=== PATIENT | female | born 1935 | race Caucasian/White ===

== ENCOUNTER 2022-04-24 08:22 | Outpatient (REF) | payer MEDICARE, SELFPAY ==
[2022-04-24 11:50] LABS: Hematocrit 40.9 % (37.0-47.0); Hemoglobin 13.2 g/dl (12.0-16.0); Mean Corpuscular HGB Conc 32.3 g/dl (31.0-35.0); Mean Corpuscular Hemoglobin 29.9 pg (27.0-33.0); Mean Corpuscular Volume 92.5 fL (80.0-98.0); Platelet Count 245 X10*3/uL (160-400); Red Blood Count 4.42 X10*6/uL (4.20-5.50); Red Cell Distribution Width 12.6 % (11.0-16.0); White Blood Count 5.2 X10*3/uL (4.8-10.8)
[2022-04-24 12:24] LABS: Alanine Aminotransferase 24 U/L (0-31); Alkaline Phosphatase 88 U/L (39-117); Anion Gap 12 (12-20); Aspartate Amino Transferase 29 U/L (5-31); Bilirubin Total 0.9 mg/dL (0.0-1.0); Blood Urea Nitrogen 16 mg/dL (9-16); Calcium 9.3 mg/dL (8.4-10.2); Carbon Dioxide 29 mmol/L (22-29); Chloride 104 mmol/L (96-108); Cholesterol 160 mg/dL; Estimated Glomerular Filt Rate 60; Glucose Fasting 88 mg/dL (60-99); HDL Cholesterol 48 mg/dL; LDL Cholesterol Calculated 90 mg/dl; Potassium 4.3 mmol/L (3.3-5.1); Sodium 141 mmol/L (135-145); Total Protein 7.2 g/dL (6.5-8.0); Triglycerides 110 mg/dL
== END 2022-04-24 08:23 | disposition home or self-care (01) ==
LOC: HO.WFDLDS 08:22
PROVIDERS: Visit Provider Nurse Practitioner Family
DX: Z00.00 Encounter for general adult medical examination without abnormal findings (principal); Z79.899 Other long term (current) drug therapy
CPT/HCPCS: 36415; 80053; 80061; 82306; 84443; 85027

== ENCOUNTER 2022-05-12 10:59 | Outpatient (REF) | payer MEDICARE, SELFPAY ==
--- NOTE | ~2022-05-12 | MM_ITS ---
EXAMINATION: BONE DENSITOMETRY CLINICAL INDICATION: Osteoporosis. COMPARISON: None (current study represents initial baseline exam). TECHNIQUE: Using a cortical.io DXA System (software version: 13.1) manufactured by [employer], dual-energy x-ray absorptiometry was performed of the lumbar spine and left hip. The images are of good technical quality. Summary results are attached. FINDINGS: AP SPINE L1-L4: BMD 0.994 g/cm2, Z-score 0.4, T-score -1.5, osteopenia. LEFT FEMUR, NECK: BMD 0.712 g/cm2, Z-score 0.1, T-score -2.3, osteopenia. LEFT FEMUR, TOTAL: BMD 0.876 g/cm2, Z-score 1.2, T-score -1.0, normal. IDENTIFIED RISK FACTORS: Menopause, renal. HISTORY OF FRACTURE: None listed. MEDICATIONS: Vitamin D. MM/XR DEXA axial skeleton IMPRESSION: 1. DIAGNOSIS: Osteopenia based on the lowest T-score value of -2.3 in the femoral neck applying World Health Organization criteria. 2. 10-YEAR FRACTURE RISK PREDICTION, FRAX: Major osteoporotic fracture (clinical spine, forearm, hip or shoulder) 18.2%. Hip fracture 6.2%. 3. Treatment Recommendations: NOF guidelines recommend consideration for treatment in postmenopausal women and men age 50 and older presenting with the following: -A hip or vertebral (clinical or morphometric) fracture. -T-score less than or equal to -2.5 at the femoral neck or spine after appropriate evaluation to exclude secondary causes. -Low bone mass at the hip or spine and a 10-year fracture probability by FRAX of greater than or equal to 3% for hip fracture or greater than or equal to 20% for major osteoporotic fracture based on the [place] adapted WHO algorithm. 4. Other Recommendations: All treatment decisions require clinical judgment and consideration of individual patient factors, including patient preferences, comorbidities, previous drug use, risk factors not captured in the FRAX model (e.g. frailty, falls, vitamin D deficiency, increased bone turnover, interval significant decline in bone density) and possible under or overestimation of fracture risk by FRAX. Additional medical evaluation for secondary cause of low bone mineral density may be appropriate. FUTURE SCAN RECOMMENDATION: People with diagnosed cases of osteoporosis or at high risk for fracture should have regular bone mineral density tests. For patients eligible for Medicare, routine testing is allowed once every 2 years. The testing frequency can be increased to one year for patients who have rapidly progressing disease, those who are receiving or discontinuing medical therapy to restore bone mass, or have additional risk factors.
== END 2022-05-12 11:00 | disposition home or self-care (01) ==
LOC: HO.MAMMO 10:59
PROVIDERS: PCP Nurse Practitioner Family; Visit Provider Nurse Practitioner Family
DX: Z13.820 Encounter for screening for osteoporosis (principal); Z78.0 Asymptomatic menopausal state; M81.0 Age-related osteoporosis without current pathological fracture
CPT/HCPCS: 77080

== ENCOUNTER 2022-09-14 09:30 | Outpatient (REF) | payer MEDICARE, SELFPAY ==
[2022-09-14 12:58] LABS: Anion Gap 13 (12-20); Blood Urea Nitrogen 15 mg/dL (9-16); Carbon Dioxide 28 mmol/L (22-29); Chloride 105 mmol/L (96-108); Cholesterol 175 mg/dL; Estimated Glomerular Filt Rate 57; Glucose Random 101 mg/dL (60-115); HDL Cholesterol 45 mg/dL; LDL Cholesterol Calculated 102 mg/dl; Potassium 4.5 mmol/L (3.3-5.1); Sodium 141 mmol/L (135-145); Triglycerides 140 mg/dL
[2022-09-14 13:00] LABS: Vitamin D 25-OH Total 47.6 ng/mL (>30)
== END 2022-09-14 09:31 | disposition home or self-care (01) ==
LOC: HO.WFDLDS 09:30
PROVIDERS: Visit Provider Nurse Practitioner Family
DX: M85.80 Other specified disorders of bone density and structure, unspecified site (principal); I10 Essential (primary) hypertension; E78.5 Hyperlipidemia, unspecified
CPT/HCPCS: 36415; 80048; 80061; 82306

== ENCOUNTER 2022-09-22 09:43 | Outpatient (AMB) | payer MEDICARE, SELFPAY ==
[2022-09-22 09:47] VITALS: BP 126/60; PULSE 96; RESP 12; TEMP 36.8; O2SAT 97; BMI 27.2
--- NOTE | 2022-09-22 09:47 | A.OFFPC_ITS ---
Vital Signs 09/22/22 09:47 Height 5 ft 1 in Weight 144 lb BMI 27.2 BP 126/60 Blood Pressure Location Rt brachial Position Sitting Respiration 12 Pulse 96 Pulse Source Pulse Oximeter Temp 98.3 F Temp Source Temporal Artery Scan Pulse Oximetry (%) 97 Oxygen Delivery Method Room Air Intake Visit Reasons: 3 Month HTN f/u / Lab review Intake Note: Patient would like to discuss possibly getting a mammogram done. Patient states that she has been very light headed lately and is wondering if she needs to see nephrology or a health practice manager. 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 by: Self / Same As Patient Allergies No Known Allergies Allergy (Verified 09/22/22 10:46) Medication List - Last Reconciled 09/22/22 by Kianna Stein CNP aspirin 81 mg PO .every other day atorvastatin 20 mg PO DAILY 30 days lisinopril 20 mg PO DAILY 90 days Tobacco use date assessed: 04/23/22 Fall risk assessment: No Falls in past year Last assessed Fall Risk: 09/22/22 Dental Screening Dental Screen Date: 09/22/22 Did you have a dental visit in the last 12 months?: Yes Did you have a dental problem in the last 6 months where you did not have access to dental care?: No Was dental information given to patient?: Patient has dentist HPI HPI Comments 2 History of Present Illness Details 87-year-old female presents for hypertension follow-up. She notes she takes her medications as prescribed. She reports persistent lightheadedness for the past 1 week. Her symptoms are independent to position changes. No headache, visual disturbances, or ear pain. [facility] Medical History No pertinent past medical history Surgical History H/O removal of cyst Family History Sister Breast cancer Lung cancer Family/Other Breast cancer Family/Other Breast cancer Social History Housing: House Patient Tobacco Use Status: Former Tobacco user Tobacco use type: Cigarette Cigarettes Per Day: 8 e-Cigarette/Vaping Use: Never Used Second Hand Smoke Exposure: No service: No Current occupational status: retired Cognitive needs: No Hearing needs: No Vision needs: No Questionnaire Thrive Questionnaire Date Thrive assessed: 04/23/22 KEVEN-7 AMB Questionnaire KEVEN-7 Date KEVEN - 7 assessed: 04/23/22 Source: Developed by Drs. Chris Nice, Dalia Fermin, Jean Orr and colleagues, with an educational maritza from [email or web address]. Review of Systems Const Details: Const Denies chills, Denies fatigue, Denies fever(s), Denies headache(s) and Denies weakness ENT Denies dizziness and Denies headache(s) Card Denies chest pain, Reports lightheadedness, Denies dyspnea and Denies other (Palpitations) Resp Denies cough, Denies dyspnea, Denies wheezing and Denies other ( shortness of breath) GI Denies abdominal pain, Denies melena, Denies hematochezia, Denies change in bowel habits, Denies dyspepsia and Denies nausea Denies hematuria and Denies dysuria Musc Denies abnormal gait, Denies myalgias, Denies arthralgias, Denies numbness and Denies tingling Skin/Breast Denies rash, Denies unusual bruising and Denies wounds Neuro Denies abnormal gait, Denies dizziness, Denies headache(s), Denies memory loss, Denies numbness, Denies Sensory deficit (Neuro), Denies tingling and Denies weakness Psych Denies anxiety and Denies depression Endo Denies fatigue Aller/Immun Denies wheezing Physical exam (Primary Care) Vital Signs: Last Vital Signs Temp 98.3 F 09/22/22 09:47 Pulse 96 09/22/22 09:47 Resp 12 09/22/22 09:47 BP 126/60 09/22/22 09:47 Pulse Ox 97 09/22/22 09:47 Oxygen Delivery Method Room Air 09/22/22 09:47 BMI result Body Mass Index 27.2 Tobacco/Smoking Status: Tobacco use Status Tobacco use date assessed 04/23/22 09/22/22 10:01 Patient Tobacco Use Status Former Tobacco user 09/22/22 10:01 Tobacco use type Cigarette 09/22/22 10:01 e-Cigarette/Vaping Use Never Used 09/22/22 10:01 Thrive Assessment: Date of Thrive Assessment Date Thrive assessed 04/23/22 09/22/22 10:01 Const Other: General: no acute distress and well developed Nutritional Appearance: well nourished Orientation/consciousness: patient oriented x3 [facility] Head: Yes normocephalic and Yes atraumatic Eyes General: appearance normal, both eyes and all related structures Pupils: Equal, round and reactive pupils present EOM: EOMs intact bilaterally Resp Effort & Inspection: normal respiratory effort Auscultation: clear to auscultation bilaterally Cardio Rate: regular rate Rhythm: regular rhythm Heart sounds: S1 normal heart sound present, S2 normal heart sound present, no gallops, no murmurs and no rubs GI Palpation (GI): No Abdominal aortic bruit present, Soft to palpation, nontender, No hepatosplenomegaly present and No Rebound tenderness present Auscultation: normal bowel sounds General: Yes no CVA tenderness Back/Spine/Pelvis Back: no CVA tenderness Cervical Spine: cervical ROM normal and No Cervical spine tenderness Thoracic/Lumbar Spine: thoraco-lumbar ROM normal, No pain with thoraco-lumbar ROM, No thoracic spinal tenderness and No lumbar spinal tenderness Extrem General: Yes normal to inspection, No edema and No calf tenderness Skin General: warm and dry. Normal skin color. Normal skin turgor Lesions: no lesions Rashes: no rashes Trauma: no lacerations or abrasions Wounds: no wounds Nails: normal Neuro General: patient oriented x3, gait normal and no focal neuro deficit Cranial nerves: Yes Equal, round and reactive pupils present Cognition (Neuro): normal cognition Gait exam (Neuro): Normal gait present Sensory Exam: No Sensory deficit (Neuro) Psych Affect: normal affect Assessment and Plan Assessment & Plan (1) Hypertension: Code(s): I10 - Essential (primary) hypertension Qualifiers: Hypertension type: unspecified Qualified Code(s): I10 - Essential (primary) hypertension Plan: Blood pressure is improved, 126/60, within goal of less than 140/90 Lisinopril as prescribed Low-sodium diet and routine exercise encouraged Follow-up in 3 months or return sooner with symptoms or concerns Verbalized understanding and agreed with treatment plan (2) Hyperlipidemia: Code(s): E78.5 - Hyperlipidemia, unspecified Qualifiers: Hyperlipidemia type: unspecified Qualified Code(s): E78.5 - Hyperlipidemia, unspecified Plan: Recent lab results reviewed with the patient Lipid panels within normal limits but slowly rising Advised to limit foods high in saturated fat and avoid foods high trans for Routine exercise encouraged Will continue to monitor (3) Lightheadedness: Code(s): R42 - Dizziness and giddiness Plan: Reports persistent lightheadedness for the past 1 week May be related to middle ear abnormality although bilat ear exam is normal Declined PT referral for vestibular rehab Advised to monitor symptoms and return with worsening or new symptoms Verbalized understanding and agreed with plan. Coding Level of Care Code Est Pt Level 3 (90175) Diagnoses Hypertension I10 Hypertension type: unspecified Hyperlipidemia E78.5 Hyperlipidemia type: unspecified Lightheadedness R42 Time Spent (min) 25
== END 2022-09-22 10:58 | disposition home or self-care (01) ==
PROVIDERS: Visit Provider Nurse Practitioner Family
DX: I10 Essential (primary) hypertension (principal); E78.5 Hyperlipidemia, unspecified; R42 Dizziness and giddiness
CPT/HCPCS: 99213

== ENCOUNTER 2022-12-22 12:06 | Outpatient (AMB) | payer MEDICARE, SELFPAY ==
--- NOTE | 2022-12-22 12:20 | MHC.PC.OV ---
Vital Signs 12/22/22 12:21 Height 5 ft 1 in Weight 150 lb 2 oz BMI 28.4 BP 128/60 Blood Pressure Location Rt brachial Position Sitting Respiration 12 Pulse 93 Pulse Source Pulse Oximeter Temp 98.9 F Temp Source Oral Pulse Oximetry (%) 98 Oxygen Delivery Method Room Air Intake Visit Reasons: 3 mos HTN Intake Note: Patient is here for a follow up of her blood pressure. Patient reports she needs medication refills and she is interested in getting the flu shot today. Patient was recently diagnosed with macular degeneration and was advised to take preservision capsules. Patient is wondering if this will affect CKD. Patient is also requesting a mammogram referral. 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 She notes she takes her medications as prescribed. She states that she was recently diagnosed with macular degeneration, by [facility], 3 months ago and was advised to take preservision capsule. She is concerned about the effect of the medication on a kidneys. She was advised to follow up with ophthalmology every 3 months. She notes that her last mammogram was over a year ago. She requests an order for a mammogram. [facility] Medical History (Updated 12/22/22 @ 13:06 by Kianna Stein CNP) Macular degeneration of both eyes Surgical History H/O removal of cyst Family History Sister Breast cancer Lung cancer Family/Other Breast cancer Family/Other Breast cancer Social History Housing: House Patient Tobacco Use Status: Former Tobacco user Tobacco use type: Cigarette Cigarettes Per Day: 8 e-Cigarette/Vaping Use: Never Used Second Hand Smoke Exposure: No service: No Current occupational status: retired Cognitive needs: No Hearing needs: No Vision needs: No Questionnaire Thrive Questionnaire Date Thrive assessed: 04/23/22 KEVEN-7 AMB Questionnaire KEVEN-7 Date KEVEN - 7 assessed: 04/23/22 Source: Developed by Drs. Chris Nice, Dalia Fermin, Jean Orr and colleagues, with an educational maritza from [employer]. Review of Systems Const Details: Const Denies chills, Denies fatigue, Denies fever(s), Denies headache(s) and Denies weakness ENT Denies dizziness and Denies headache(s) Card Denies chest pain, Denies lightheadedness, Denies dyspnea and Denies other (Palpitations) Resp Denies cough, Denies dyspnea, Denies wheezing and Denies other ( shortness of breath) GI Denies abdominal pain, Denies melena, Denies hematochezia, Denies change in bowel habits, Denies dyspepsia and Denies nausea Denies hematuria and Denies dysuria Musc Denies abnormal gait, Denies myalgias, Denies arthralgias, Denies numbness and Denies tingling Skin/Breast Denies rash, Denies unusual bruising and Denies wounds Neuro Denies abnormal gait, Denies dizziness, Denies headache(s), Denies memory loss, Denies numbness, Denies Sensory deficit (Neuro), Denies tingling and Denies weakness Psych Denies anxiety, Denies depression, Denies memory loss Endo Denies cold intolerance, Denies fatigue, Denies heat intolerance, Denies polydipsia and Denies polyuria Aller/Immun Denies wheezing Physical exam (Primary Care) Vital Signs: Last Vital Signs Temp 98.9 F 12/22/22 12:21 Pulse 93 12/22/22 12:21 Resp 12 12/22/22 12:21 BP 128/60 12/22/22 12:21 Pulse Ox 98 12/22/22 12:21 Oxygen Delivery Method Room Air 12/22/22 12:21 BMI result Body Mass Index 28.4 Tobacco/Smoking Status: Tobacco use Status Tobacco use date assessed 12/22/22 12/22/22 12:34 Patient Tobacco Use Status Former Tobacco user 12/22/22 12:34 Tobacco use type Cigarette 12/22/22 12:34 e-Cigarette/Vaping Use Never Used 12/22/22 12:34 Thrive Assessment: Date of Thrive Assessment Date Thrive assessed 04/23/22 12/22/22 12:34 Const Other: General: no acute distress and well developed Nutritional Appearance: well nourished Orientation/consciousness: patient oriented x3 [facility] Head: Yes normocephalic and Yes atraumatic Eyes General: appearance normal, both eyes and all related structures Pupils: Equal, round and reactive pupils present EOM: EOMs intact bilaterally Resp Effort & Inspection: normal respiratory effort Auscultation: clear to auscultation bilaterally Cardio Rate: regular rate Rhythm: regular rhythm Heart sounds: S1 normal heart sound present, S2 normal heart sound present, no gallops, no murmurs and no rubs GI Palpation (GI): No Abdominal aortic bruit present, Soft to palpation, nontender, No hepatosplenomegaly present and No Rebound tenderness present Auscultation: normal bowel sounds General: Yes no CVA tenderness Back/Spine/Pelvis Back: no CVA tenderness Cervical Spine: cervical ROM normal and No Cervical spine tenderness Thoracic/Lumbar Spine: thoraco-lumbar ROM normal, No pain with thoraco-lumbar ROM, No thoracic spinal tenderness and No lumbar spinal tenderness Extrem General: Yes normal to inspection, No edema and No calf tenderness Skin General: warm and dry. Normal skin color. Normal skin turgor Lesions: no lesions Rashes: no rashes Trauma: no lacerations or abrasions Wounds: no wounds Nails: normal Neuro General: patient oriented x3, gait normal and no focal neuro deficit Cranial nerves: Yes Equal, round and reactive pupils present Cognition (Neuro): normal cognition Gait exam (Neuro): Normal gait present Sensory Exam: No Sensory deficit (Neuro) Psych Appearance: grossly normal Affect: normal affect Attitude: cooperative Thought process: Normal thought process present Office Procedures Flu Questionnaire Does the patient have a severe egg allergy?: No Does the patient have severe life threatening allergies?: No Does the patient have a fever or illness today?: No Has the patient ever had Guillain-Clifford Syndrome?: No Has the patient ever had any past reaction to a flu shot?: No Immunizations flu vacc [id number] 6mos up(PF) 60 mcg(15 mcgx4)/0.5 mL IM syringe Performing Provider: Kianna Stein CNP Performing Location: [facility] Administered by: Julissa Casper CMA on 12/22/22 13:09 Dose Route Admin Location Dispensed Lot Number Expiration Date NDC Stock Wetter 0.5 mL IM Left Deltoid 0.5 mL [id number] 08/29/23 86543-713-41 [id number] VIS Given Date VIS Provided VIS Publication Date 12/22/22 Single Vaccine 20 Eligibility Eligibility Date Funding Source Not [facility] Eligible 12/22/22 Private Assessment and Plan Assessment & Plan (1) Hypertension: Code(s): I10 - Essential (primary) hypertension Qualifiers: Hypertension type: unspecified Qualified Code(s): I10 - Essential (primary) hypertension Plan: Blood pressures control, 128/60, within goal of less than 140/90 Continue with current treatment regimen Low-sodium diet encouraged Follow-up in 4 months for a complete physical exam and hypertension. Will recheck routine labs. Advised to fast for 10-12 hours and get blood work done before her physical exam Return sooner with symptoms or concerns Verbalized understanding and agreed with treatment plan. She is informed that according to the USPSTF, the current evidence is insufficient to assess the balance of benefits and harms of screening mammography in women aged 75 years or older. She verbalized understanding and elects discontinue mammogram test at this time. Flu vaccine was administered by the nurse today. (2) Macular degeneration: Code(s): H35.30 - Unspecified macular degeneration Plan: She states that she was recently diagnosed with macular degeneration, by [facility], 3 months ago and was advised to take preservision capsule. She is concerned about the effect of the medication on a kidneys. She was advised to follow up with ophthalmology every 3 months. 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 Orders: Orders TSH reflex Free T4 Today Z00.00 - Encounter for general adult medical examination without abnormal findings Influenza [id number] Immunization Today Z23 - Encounter for immunization Comprehensive [place]. Panel Fast Today Z00.00 - Encounter for general adult medical examination without abnormal findings Complete Blood Count Auto Diff Today Z00.00 - Encounter for general adult medical examination without abnormal findings Lipid Panel Today Z00.00 - Encounter for general adult medical examination without abnormal findings UA CC w/rflx Micro + Cult Today Z00.00 - Encounter for general adult medical examination without abnormal findings Coding Level of Care Code Est Pt Level 3 (59392) Diagnoses Hypertension, unspecified type I10 Hypertension type: unspecified Macular degeneration H35.30
[2022-12-22 12:21] VITALS: BP 128/60; PULSE 93; RESP 12; TEMP 37.2; O2SAT 98; BMI 28.4
== END 2022-12-22 13:07 | disposition home or self-care (01) ==
PROVIDERS: PCP Nurse Practitioner Family; Visit Provider Nurse Practitioner Family
DX: I10 Essential (primary) hypertension (principal); H35.30 Unspecified macular degeneration; Z23 Encounter for immunization
CPT/HCPCS: 90471; 90686; 99213

== ENCOUNTER 2023-04-14 08:41 | Outpatient (REF) | payer MEDICARE, SELFPAY ==
[2023-04-14 11:24] LABS: MANUAL DIFF FLAG NO
[2023-04-14 11:29] LABS: Appearance Urine Cloudy; Color Urine Yellow; Glucose Urine UA Negative (Negative); Leukocyte Esterase Urine Small (1+) (Negative); Nitrite Urine Negative (Negative); UMIC TRIGGER UACC YES; Urine Blood Negative (Negative); Urine Ketones Negative (Negative); Urine Protein Negative (Neg-Trace)
[2023-04-14 11:42] LABS: Bacteria Urine None Seen (None Seen); RBC Urine 0-2 /HPF (0-2); UACC Culture Trigger YES; WBC Urine 21-50 /HPF (0-5)
[2023-04-14 11:50] LABS: Basophils Percent Auto 0.8 % (0-2); Eosinophils Absolute Auto 0.1 X10*3/uL (0.0-0.4); Eosinophils Percent Auto 2.8 % (0-4); Hematocrit 38.4 % (37.0-47.0); Hemoglobin 12.5 g/dl (12.0-16.0); Imm Gran Abs Auto 0.01 X10*3/uL (0.00-0.03); Imm Gran Pct Auto 0.2 % (0.0-0.4); Lymphocytes Absolute Auto 1.3 X10*3/uL (1.2-4.9); Lymphocytes Percent Auto 25.3 % (20-40); Mean Corpuscular HGB Conc 32.6 g/dl (31.0-35.0); Mean Corpuscular Hemoglobin 30.5 pg (27.0-33.0); Mean Corpuscular Volume 93.7 fL (80.0-98.0); Mean Platelet Volume 10.1 fL (9.4-12.3); Monocytes Absolute Auto 0.4 X10*3/uL (0.1-1.2); Neutrophils Absolute Auto 3.1 x10*3/uL (2.0-8.3); Neutrophils Percent Auto 62.9 % (45-73); Platelet Count 224 X10*3/uL (160-400); Red Cell Distribution Width 12.3 % (11.0-16.0)
[2023-04-14 12:48] LABS: Alanine Aminotransferase 15 U/L (0-31); Albumin Level 3.8 g/dL (3.5-5.0); Alkaline Phosphatase 91 U/L (39-117); Anion Gap 11 (12-20); Aspartate Amino Transferase 22 U/L (5-31); Bilirubin Total 0.5 mg/dL (0.0-1.0); Blood Urea Nitrogen 15 mg/dL (9-16); Carbon Dioxide 28 mmol/L (22-29); Chloride 107 mmol/L (96-108); Cholesterol 141 mg/dL (<200); Estimated Glomerular Filt Rate 57; Glucose Fasting 94 mg/dL (60-99); HDL Cholesterol 41 mg/dL (>40); LDL Cholesterol Calculated 73 mg/dL (<100); Potassium 3.9 mmol/L (3.3-5.1); Sodium 142 mmol/L (135-145); TSH reflex Free T4 1.57 uIU/mL (0.32-4.0); Total Protein 7.2 g/dL (6.5-8.0); Triglycerides 135 mg/dL (<150)
== END 2023-04-14 08:42 | disposition home or self-care (01) ==
LOC: HO.WFDLDS 08:41
PROVIDERS: Visit Provider Nurse Practitioner Family
DX: Z00.00 Encounter for general adult medical examination without abnormal findings (principal); Z13.220 Encounter for screening for lipoid disorders; Z13.29 Encounter for screening for other suspected endocrine disorder
CPT/HCPCS: 36415; 80053; 80061; 81001; 84443; 85025; 87086

== ENCOUNTER 2023-04-20 09:44 | Outpatient (AMB) | payer MEDICARE, SELFPAY ==
[2023-04-20 09:53] VITALS: BP 122/70; PULSE 90; RESP 13; TEMP 36.5; O2SAT 96; BMI 27.1
--- NOTE | 2023-04-20 09:53 | A.OFFPC_ITS ---
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 Accompanied by: Self / Same As Patient Allergies grass pollen Allergy (Severe, Verified 04/20/23 10:00) Itchy Eyes tree and shrub pollen Allergy (Intermediate, Verified 04/20/23 10:00) Itchy Eyes Tobacco use date assessed: 04/20/23 Fall risk assessment: No Falls in past year Last assessed Fall Risk: 04/20/23 Dental Screening Dental Screen Date: 04/20/23 Did you have a dental visit in the last 12 months?: Yes Did you have a dental problem in the last 6 months where you did not have access to dental care?: No Was dental information given to patient?: Patient has dentist HPI HPI Comments History of Present Illness Details 87-year-old female presents for hyperten aviva follow-up She admits to taking her medications as prescribed without adverse reactions She offers no complaints and denies acute symptoms at this time [facility] Medical History Macular degeneration of both eyes Surgical History H/O removal of cyst Family History Sister Breast cancer Lung cancer Family/Other Breast cancer Family/Other Breast cancer Daughter Bipolar 1 disorder Family/Other Schizophrenia Other Mental health disorder Social History Housing: House Patient Tobacco Use Status: Former Tobacco user Tobacco use type: Cigarette Cigarettes Per Day: 8 e-Cigarette/Vaping Use: Never Used Second Hand Smoke Exposure: No service: No Current occupational status: retired Cognitive needs: No Hearing needs: No Vision needs: No Questionnaire Thrive Questionnaire Date Thrive assessed: 04/23/22 KEVEN-7 AMB Questionnaire KEVEN-7 Date KEVEN - 7 assessed: 04/23/22 Source: Developed by Drs. Chris Nice, Dalia Fermin, Jean Orr and colleagues, with an educational maritza from [employer]. Review of Systems Const Details: Const Denies chills, Denies fatigue, Denies fever(s), Denies headache(s) and Denies weakness ENT Denies dizziness and Denies headache(s) Card Denies chest pain, Denies lightheadedness, Denies dyspnea and Denies other (Palpitations) Resp Denies cough, Denies dyspnea, Denies wheezing and Denies other ( shortness of breath) GI Denies abdominal pain, Denies melena, Denies hematochezia, Denies change in bowel habits, Denies dyspepsia and Denies nausea Denies hematuria and Denies dysuria Musc Denies abnormal gait, Denies myalgias, Denies arthralgias, Denies numbness and Denies tingling Skin/Breast Denies rash, Denies unusual bruising and Denies wounds Neuro Denies abnormal gait, Denies dizziness, Denies headache(s), Denies memory loss, Denies numbness, Denies Sensory deficit (Neuro), Denies tingling and Denies weakness Psych Denies anxiety, Denies depression, Denies memory loss Endo Denies cold intolerance, Denies fatigue, Denies heat intolerance, Denies polydipsia and Denies polyuria Aller/Immun Denies wheezing Physical exam (Primary Care) Vital Signs: Last Vital Signs Temp 97.7 F 04/20/23 09:53 Pulse 90 04/20/23 09:53 Resp 13 04/20/23 09:53 BP 122/70 04/20/23 09:53 Pulse Ox 96 04/20/23 09:53 Oxygen Delivery Method Room Air 04/20/23 09:53 BMI result Body Mass Index 27.1 Tobacco/Smoking Status: Tobacco use Status Tobacco use date assessed 04/20/23 04/20/23 10:05 Patient Tobacco Use Status Former Tobacco user 04/20/23 10:05 Tobacco use type Cigarette 04/20/23 10:05 e-Cigarette/Vaping Use Never Used 04/20/23 10:05 Thrive Assessment: Date of Thrive Assessment Date Thrive assessed 04/23/22 04/20/23 10:05 Const Other: General: no acute distress and well developed Nutritional Appearance: well nourished Orientation/consciousness: patient oriented x3 HENMT Head: Yes normocephalic and Yes atraumatic Eyes General: appearance normal, both eyes and all related structures Pupils: Equal, round and reactive pupils present EOM: EOMs intact bilaterally Resp Effort & Inspection: normal respiratory effort Auscultation: clear to auscultation bilaterally Cardio Rate: regular rate Rhythm: regular rhythm Heart sounds: S1 normal heart sound present, S2 normal heart sound present, no gallops, no murmurs and no rubs GI Palpation (GI): No Abdominal aortic bruit present, Soft to palpation, nontender, No hepatosplenomegaly present and No Rebound tenderness present Auscultation: normal bowel sounds General: Yes no CVA tenderness Back/Spine/Pelvis Back: no CVA tenderness Cervical Spine: cervical ROM normal and No Cervical spine tenderness Thoracic/Lumbar Spine: thoraco-lumbar ROM normal, No pain with thoraco-lumbar ROM, No thoracic spinal tenderness and No lumbar spinal tenderness Extrem General: Yes normal to inspection, No edema and No calf tenderness Skin General: warm and dry. Normal skin color. Normal skin turgor Neuro General: patient oriented x3, gait normal and no focal neuro deficit Cranial nerves: Yes Equal, round and reactive pupils present Cognition (Neuro): normal cognition Gait exam (Neuro): Normal gait present Sensory Exam: No Sensory deficit (Neuro) Psych Appearance: grossly normal Affect: normal affect Attitude: cooperative Thought process: Normal thought process present Assessment and Plan Assessment & Plan (1) Hypertension: Code(s): I10 - Essential (primary) hypertension Qualifiers: Hypertension type: unspecified Qualified Code(s): I10 - Essential (primary) hypertension Plan: Blood pressure is 122/70, within goal of less than 140/90 Continue current treatment regimen Low-sodium diet and routine exercise encouraged Follow-up in 1 month for an extended physical exam Return sooner with symptoms or concerns Verbalized understanding and agreed with treatment plan Recent lab results reviewed with the patient; unremarkable findings Coding Level of Care Code Est Pt Level 3 (67159) Diagnoses Hypertension, unspecified type I10 Hypertension type: unspecified
== END 2023-04-20 10:17 | disposition home or self-care (01) ==
PROVIDERS: PCP Nurse Practitioner Family; Visit Provider Nurse Practitioner Family
DX: I10 Essential (primary) hypertension (principal)
CPT/HCPCS: 99213

== ENCOUNTER 2023-06-18 16:13 | Outpatient (AMB) | payer MEDICARE, SELFPAY ==
[2023-06-18 16:14] VITALS: BP 128/70; PULSE 107; RESP 13; TEMP 36.6; O2SAT 99; BMI 27.6
--- NOTE | 2023-06-18 16:14 | A.OFFPC_ITS ---
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 Required: No Accompanied by: Self / Same As Patient Allergies grass pollen Allergy (Severe, Verified 06/18/23 16:42) Itchy Eyes tree and shrub pollen Allergy (Intermediate, Verified 06/18/23 16:42) Itchy Eyes Medication List - Last Reconciled 06/18/23 by Kianna Stein CNP aspirin 81 mg PO .every other day atorvastatin 20 mg PO DAILY 30 days lisinopril 20 mg PO DAILY 90 days vitamins A,C,V-kxvo-vknxpb 4,296 mcg-226 mg-90 mg (PreserVision AREDS) 1 cap PO DAILY Tobacco use date assessed: 04/20/23 Fall risk assessment: 1 Fall in past year Last assessed Fall Risk: 06/18/23 Dental Screening Dental Screen Date: 06/18/23 Did you have a dental visit in the last 12 months?: Yes Did you have a dental problem in the last 6 months where you did not have access to dental care?: No HPI HPI Comments History of Present Illness Details 88-year-old female presents for an exten ded physical exam She has history of hyperlipidemia, hypertension, osteopenia, and macular degeneration of both eyes She admits to taking her medications as prescribed without adverse reactions She offers no complaints and denies acute symptoms at this time Last dexa scan was in 04/2022: ostopenia. She states that she takes OTC viamin D3 Her last colonoscopy was 8 years ago, polyps removed, no known h/o colon cancer. No family h/o colon cancer Last mammogram was in 2021: normal. She requests a mammogram She states that she is up-to-date on the flu vaccine She notes that her last eye exam was with [facility] on 05/17/2023 [facility] Medical History Macular degeneration of both eyes Surgical History H/O removal of cyst Family History Sister Breast cancer Lung cancer Family/Other Breast cancer Family/Other Breast cancer Daughter Bipolar 1 disorder Family/Other Schizophrenia Other Mental health disorder Social History Housing: House Patient Tobacco Use Status: Former Tobacco user Tobacco use type: Cigarette Cigarettes Per Day: 8 e-Cigarette/Vaping Use: Never Used Second Hand Smoke Exposure: No service: No Current occupational status: retired Cognitive needs: No Hearing needs: No Vision needs: No Questionnaire PHQ-9 Over the last 2 weeks, how often have you been bothered by any of the following problems? 1. Little interest or pleasure in doing things: not at all 2. Feeling down, depressed, or hopeless: not at all 3. Trouble falling or staying asleep, or sleeping too much: nearly every day (Staying asleep) 4. Feeling tired or having little energy: not at all 5. Poor appetite or overeating: several days 6. Feeling bad about yourself - or that you are a failure or have let yourself or your family down: not at all 7. Trouble concentrating on things, such as reading the newspaper or watching television: not at all 8. Moving or speaking so slowly that other people could have noticed. Or the opposite - being so fidgety or restless that you have been moving around a lot more than usual: not at all 9. Thoughts that you would be better off or of hurting yourself in some way: not at all Total score: 4 Depression Screening Interpretation: Negative Depression Screening Done: Yes [id number] - PHQ-9 Billing: Yes Source: Developed by Drs. Chris Nice, Dalia Fermin, Jean Orr and colleagues, with an educational maritza from [employer]. Thrive Questionnaire Date Thrive assessed: 06/18/23 I am a: Patient What is your living situation today?: I have a steady place to live Within the past 12 months, did the food you bought not last and you didn't have the money to get more?: Never true Within the past 12 months, did you worry whether your food would run out before you got money to buy more?: Never true Do you have trouble paying for medicines?: No Do you have trouble getting transportation to medical appointments?: No Do you have trouble paying your heating and electricity bill?: No Do you have trouble taking care of your child, family member or friend?: No Do you have trouble with day-to-day activities such as bathing, preparing meals, shopping, managing finances, etc.?: No Are you currently unemployed and looking for a job?: No Are you interested in more education?: No Please select the resources that you would like help with: None Currently or been in a relationship where the following occur: no concerns reported THRIVE Score: 0 AUDIT C Alcohol Use Questionnaire (AUDIT-C) 1. How often do you have a drink containing alcohol?: Never 3. How often do you have six or more drinks on one occasion?: Never Total Score: 0 KEVEN-7 AMB Questionnaire KEVEN-7 Date KEVEN - 7 assessed: 06/18/23 Feeling nervous, anxious, or on edge: 0 = Not at all Not being able to stop or control worryin = Several days Worrying too much about different things: 1 = Several days Trouble relaxin = Not at all Being so restless that it is hard to sit still: 0 = Not at all Becoming easily annoyed or irritable: 0 = Not at all Feeling afraid as if something awful might happen: 0 = Not at all Total KEVEN-7 score (0-4 normal; 5-9 mild; 10-14 moderate; 15-21 severe): 2 Source: Developed by Drs. Chris Nice, Dalia Fermin, Jean Orr and colleagues, with an educational maritza from [employer]. Review of Systems Const Details: Denies chills, Denies fatigue, Denies fever(s), Denies headache(s) and Denies weakness HEENT Denies change in vision, Denies dizziness, Denies headache(s), Denies hearing loss, Denies nasal congestion, Denies sinus pain, Denies sinus pressure and Denies sore throat Card Denies chest pain, Denies lightheadedness, Denies dyspnea and Denies other (palpitations) Resp Denies cough, Denies dyspnea and Denies wheezing GI Denies abdominal pain, Denies melena, Denies hematochezia, Denies change in bowel habits, Denies dyspepsia and Denies nausea Denies hematuria and Denies dysuria Musc Denies abnormal gait, Denies myalgias, Denies arthralgias, Denies numbness and Denies tingling Skin/Breast Denies rash, Denies unusual bruising and Denies wounds Neuro Denies abnormal gait, Denies dizziness, Denies headache(s), Denies memory loss, Denies numbness, Denies Sensory deficit (Neuro), Denies tingling and Denies weakness Psych Denies anxiety, Denies depression and Denies memory loss Endo Denies cold intolerance, Denies fatigue, Denies heat intolerance, Denies polydipsia and Denies polyuria Tonio/Lymph Denies easy bleeding and Denies easy bruising Aller/Immun Denies wheezing Physical exam (Primary Care) Vital Signs: Last Vital Signs Temp 97.9 F 06/18/23 16:14 Pulse 107 H 06/18/23 16:14 Resp 13 06/18/23 16:14 BP 128/70 06/18/23 16:14 Pulse Ox 99 06/18/23 16:14 Oxygen Delivery Method Room Air 06/18/23 16:14 BMI result Body Mass Index 27.6 Tobacco/Smoking Status: Tobacco use Status Tobacco use date assessed 04/20/23 06/18/23 16:31 Patient Tobacco Use Status Former Tobacco user 06/18/23 16:31 Tobacco use type Cigarette 06/18/23 16:31 e-Cigarette/Vaping Use Never Used 06/18/23 16:31 PHQ-9: PHQ-9 Score PHQ-9: Total score 4 06/18/23 16:31 Depression Screening Interpretation: Negative Thrive Assessment: Date of Thrive Assessment Date Thrive assessed 06/18/23 06/18/23 16:31 Currently or been in a relationship where the following occur: no concerns reported Const Other: General: no acute distress, well developed, alert and awake Nutritional Appearance: well nourished Orientation/consciousness: patient oriented x3 HENMT Head: Yes normocephalic and Yes atraumatic Ears: hearing grossly normal bilaterally and TM's normal bilaterally General nose exam: Normal external nose present and Normal nares present Mouth: Normal oral and palatal mucosa present and moist mucous membranes Teeth and gingiva: dentition normal Throat: Yes oropharynx normal Eyes Pupils: Equal, round and reactive pupils present and Pupil accommodation reflex normal EOM: EOMs intact bilaterally Neck Neck: Yes normal visual inspection, Yes no lymphadenopathy and Yes trachea midline Thyroid: Thyroid normal Carotids: no bruits Lymphatic: no lymphadenopathy noted Chest Chest palpation & inspection: normal inspection of the chest Resp Effort & Inspection: normal respiratory effort Auscultation: clear to auscultation bilaterally Cardio Rate: regular rate Rhythm: regular rhythm Heart sounds: S1 normal heart sound present, S2 normal heart sound present, no gallops, no murmurs and no rubs Bruits: no abdominal aortic bruits and no carotid bruits GI Palpation (GI): No Abdominal aortic bruit present, Soft to palpation, nontender, No hepatosplenomegaly present and No Rebound tenderness present Auscultation: normal bowel sounds General: Yes no CVA tenderness Back/Spine/Pelvis Back: no CVA tenderness Cervical Spine: cervical ROM normal and No Cervical spine tenderness Thoracic/Lumbar Spine: thoraco-lumbar ROM normal, No pain with thoraco-lumbar ROM, No thoracic spinal tenderness and No lumbar spinal tenderness Skin General: warm and dry. Normal skin color. Normal skin turgor Lesions: no lesions Rashes: no rashes Trauma: no lacerations or abrasions Wounds: no wounds Nails: normal Neuro General: patient oriented x3, gait normal and CN's II-XI intact bilaterally Cranial nerves: Yes Equal, round and reactive pupils present Cognition (Neuro): normal cognition Gait exam (Neuro): Normal gait present Motor exam (neuro): 5/5 motor strength present throughout Sensory Exam: No Sensory deficit (Neuro) Deep tendon reflexes (DTR's): Right patellar reflex intensity grade: 2+ and Left patellar reflex intensity grade: 2+ Extrem General: Yes normal to inspection, No edema and No calf tenderness Psych Appearance: grossly normal Affect: normal affect Attitude: cooperative Thought process: Normal thought process present Assessment and Plan Assessment & Plan (1) Physical exam, annual: Code(s): Z00.00 - Encounter for general adult medical examination without abnormal findings Plan: No significant physical restrictions or limitations noted Continue current treatment regimen Advised to request ophthalmology record for her PCP Advised to get fasting blood work done before next visit Follow-up in 4 months for hypertension and hyperlipidemia Return sooner with symptoms or concerns Verbalized understanding and agreed with treatment plan (2) Breast cancer screening by mammogram: Code(s): Z12.31 - Encounter for screening mammogram for malignant neoplasm of breast Plan: Last mammogram was in 2021: normal. She requests a mammogram Mammogram ordered Orders: Orders MM screening mammo BI Today Z12.31 - Encounter for screening mammogram for malignant neoplasm of breast Lipid Panel Today E78.5 - Hyperlipidemia, unspecified Coding Level of Care Code Est Pt Prev Care >65y(68021) Diagnoses Physical exam, annual Z00.00 Breast cancer screening by mammogram Z12.
== END 2023-06-18 17:07 | disposition home or self-care (01) ==
PROVIDERS: PCP Nurse Practitioner Family; Visit Provider Nurse Practitioner Family
DX: Z00.00 Encounter for general adult medical examination without abnormal findings (principal); Z12.31 Encounter for screening mammogram for malignant neoplasm of breast
CPT/HCPCS: 99397

== ENCOUNTER 2023-07-28 14:26 | Outpatient (REF) | payer MEDICARE, SELFPAY | END 2023-07-28 14:27 | disposition home or self-care (01) | LOC: HO.MAMMO 14:26 | PROVIDERS: PCP Nurse Practitioner Family; Visit Provider Nurse Practitioner Family | DX: Z13.89 Encounter for screening for other disorder (principal) ==

== ENCOUNTER 2023-08-26 14:01 | Outpatient (REF) | payer MEDICARE, SELFPAY ==
--- NOTE | ~2023-08-26 | MM_ITS ---
EXAMINATION: MM DIAGNOSTIC DIGITAL BREAST TOMOSYNTHESIS, BILATERAL US BREAST LIMITED, BILATERAL MAMMOGRAPHY: CLINICAL INFORMATION: Chronic bilateral nipple discharge. History of nipple retraction. Left benign excisional biopsy 1975. COMPARISON: Mammography: 01/08/2020. ([place]) TECHNIQUE: Digital breast tomosynthesis is performed in both the craniocaudal and mediolateral oblique views along with computer-aided detection (CAD). Synthesized 2D images are generated from the tomosynthesis. In addition, 2-D spot magnification views of the bilateral retroareolar regions were obtained in the bilateral CC and bilateral MLO views. FINDINGS: The breasts are heterogeneously dense, which may obscure small masses (ACR BI-RADS breast composition Category c). There are extensive bilateral secretory and benign type dystrophic calcifications in both breasts. There is a stable oval nodule, likely lymph node, and the upper far outer right breast posterior one third. There is bilateral nipple inversion, chronic. Mild architectural distortion of the left breast above the nipple is noted from remote excisional biopsy. There are no suspicious masses, suspicious grouped calcifications, or areas of architectural distortion in either breast. The parenchymal pattern is stable from prior exam. There is no skin or axillary abnormality. No mammographic abnormality evident to explain bilateral nipple discharge. ULTRASOUND: CLINICAL INFORMATION: As above. COMPARISON: None TECHNIQUE: Targeted sonographic evaluation was performed using a high frequency linear transducer. Selected archived documentation. FINDINGS: RIGHT BREAST: There are 2 tiny simple cysts present measuring 3 and 5 mm directly behind the nipple. No duct ectasia, abnormal mass, abnormal shadowing, architectural distortion, or additional cystic abnormality. LEFT BREAST: -There is a 5 mm retroareolar calcification, dystrophic. There is a 4 mm simple cyst in the retroareolar region. No duct ectasia, abnormal mass, abnormal shadowing, architectural distortion, or additional cystic abnormality. MM/MM tomosynthesis diagnostic BI IMPRESSION: There are no findings suspicious for malignancy in either breast. No mammographic or sonographic abnormality seen to explain nipple discharge bilaterally. Recommend clinical management. Otherwise, recommend the patient resume routine annual screening mammography in one year. OVERALL ASSESSMENT: Mammography: BI-RADS 2 - Benign Findings Ultrasound: BI-RADS 2 - Benign Findings RECOMMENDATION: 1 year F/U This patient's information was entered into a reminder system with a target due date for their next mammogram.
== END 2023-08-26 14:02 | disposition home or self-care (01) ==
LOC: HO.MAMMO 14:01
PROVIDERS: PCP Nurse Practitioner Family; Visit Provider Nurse Practitioner Family
DX: N64.52 Nipple discharge (principal); Z87.898 Personal history of other specified conditions
CPT/HCPCS: 76642; 77062; 77066

== ENCOUNTER → 2023-08-26 14:30 | Outpatient (BNV) | payer MEDICARE, SELFPAY | PROVIDERS: PCP Nurse Practitioner Family; Visit Provider Radiology Diagnostic Radiology | DX: R92.1 Mammographic calcification found on diagnostic imaging of breast (principal); N60.01 Solitary cyst of right breast; N60.02 Solitary cyst of left breast | CPT/HCPCS: 76642; 77066; G0279 ==

== ENCOUNTER 2023-10-15 08:44 | Outpatient (REF) | payer MEDICARE, SELFPAY ==
[2023-10-15 11:34] LABS: Cholesterol 149 mg/dL (<200); HDL Cholesterol 38 mg/dL (>40); LDL Cholesterol Calculated 87 mg/dL (<100); Triglycerides 120 mg/dL (<150)
== END 2023-10-15 08:45 | disposition home or self-care (01) ==
LOC: HO.WFDLDS 08:44
PROVIDERS: Visit Provider Nurse Practitioner Family
DX: E78.5 Hyperlipidemia, unspecified (principal)
CPT/HCPCS: 36415; 80061

== ENCOUNTER 2023-10-19 10:54 | Outpatient (AMB) | payer MEDICARE, SELFPAY ==
--- NOTE | 2023-10-19 10:57 | A.OFFPC_ITS ---
Vital Signs 10/19/23 11:05 10/19/23 11:39 Height 5 ft 1 in Weight 143 lb BMI 27.0 BP 132/58 L 134/64 Blood Pressure Location Rt brachial Lt brachial Position Sitting Sitting Respiration 16 Pulse 78 Pulse Source Pulse Oximeter Temp 97.7 F Temp Source Oral Pulse Oximetry (%) 98 Oxygen Delivery Method Room Air Intake Visit Reasons: 4 mos HTN, HLD Intake Note: patient here for 4 month follow up on HTN and HLD. Breaker Layer Required: No Is last menstrual period known: No Post menopausal: No Patient : No Allergies grass pollen Allergy (Severe, Verified 10/19/23 11:28) Itchy Eyes tree and shrub pollen Allergy (Intermediate, Verified 10/19/23 11:28) Itchy Eyes Medication List - Last Reconciled 10/19/23 by Kianna Stein CNP aspirin 81 mg PO .every other day atorvastatin 20 mg PO DAILY 30 days cholecalciferol (vitamin D3) 125 mcg PO DAILY lisinopril 20 mg PO DAILY 90 days Tobacco use date assessed: 10/19/23 Fall risk assessment: No Falls in past year Last assessed Fall Risk: 10/19/23 Dental Screening Dental Screen Date: 10/19/23 Did you have a dental visit in the last 12 months?: Yes Did you have a dental problem in the last 6 months where you did not have access to dental care?: No Was dental information given to patient?: Patient has dentist HPI HPI Comments History of Present Illness Details 88-year-old female presents for hyperten aviva and hyperlipidemia follow- up She admits to taking her medications as prescribed without adverse reactions She offers no complaints and denies acute symptoms at this time [facility] Medical History Macular degeneration of both eyes Surgical History H/O removal of cyst Family History Sister Breast cancer Lung cancer Family/Other Breast cancer Family/Other Breast cancer Daughter Bipolar 1 disorder Family/Other Schizophrenia Other Mental health disorder Social History Housing: House Patient Tobacco Use Status: Former Tobacco user Tobacco use type: Cigarette Cigarettes Per Day: 8 e-Cigarette/Vaping Use: Never Used Second Hand Smoke Exposure: No service: No Current occupational status: retired Current occupational exposures/hazards: No Cognitive needs: No Hearing needs: No Vision needs: No Questionnaire PHQ-9 Over the last 2 weeks, how often have you been bothered by any of the following problems? 1. Little interest or pleasure in doing things: not at all 2. Feeling down, depressed, or hopeless: several days 3. Trouble falling or staying asleep, or sleeping too much: not at all 4. Feeling tired or having little energy: not at all 5. Poor appetite or overeating: not at all 6. Feeling bad about yourself - or that you are a failure or have let yourself or your family down: not at all 7. Trouble concentrating on things, such as reading the newspaper or watching television: several days 8. Moving or speaking so slowly that other people could have noticed. Or the opposite - being so fidgety or restless that you have been moving around a lot more than usual: not at all 9. Thoughts that you would be better off or of hurting yourself in some way: not at all Total score: 2 01188 - PHQ-9 Billing: Yes Source: Developed by Drs. Chris Nice, Jean Gastelum and colleagues, with an educational maritza from [employer]. Thrive Questionnaire Date Thrive assessed: 06/18/23 KEVEN-7 AMB Questionnaire KEVEN-7 Date KEVEN - 7 assessed: 06/18/23 Source: Developed by Dalia Todd Kurt Kroenke and colleagues, with an educational maritza from [employer]. Review of Systems Const Details: Const Denies chills, Denies fatigue, Denies fever(s), Denies headache(s) and Denies weakness ENT Denies dizziness and Denies headache(s) Card Denies chest pain, Denies lightheadedness, Denies dyspnea and Denies other (Palpitations) Resp Denies cough, Denies dyspnea, Denies wheezing and Denies other ( shortness of breath) GI Denies abdominal pain, Denies melena, Denies hematochezia, Denies change in bowel habits, Denies dyspepsia and Denies nausea Denies hematuria and Denies dysuria Musc Denies abnormal gait, Denies myalgias, Denies arthralgias, Denies numbness and Denies tingling Skin/Breast Denies rash, Denies unusual bruising and Denies wounds Neuro Denies abnormal gait, Denies dizziness, Denies headache(s), Denies memory loss, Denies numbness, Denies Sensory deficit (Neuro), Denies tingling and Denies weakness Psych Denies anxiety, Denies depression, Denies memory loss Endo Denies cold intolerance, Denies fatigue, Denies heat intolerance, Denies polydipsia and Denies polyuria Aller/Immun Denies wheezing Physical exam (Primary Care) Vital Signs: Last Vital Signs Temp 97.7 F 10/19/23 11:05 Pulse 78 10/19/23 11:05 Resp 16 10/19/23 11:05 BP 132/58 L 10/19/23 11:05 Pulse Ox 98 10/19/23 11:05 Oxygen Delivery Method Room Air 10/19/23 11:05 BMI result Body Mass Index 27.0 Tobacco/Smoking Status: Tobacco use Status Tobacco use date assessed 10/19/23 10/19/23 11:09 Patient Tobacco Use Status Former Tobacco user 10/19/23 11:09 Tobacco use type Cigarette 10/19/23 11:09 e-Cigarette/Vaping Use Never Used 10/19/23 11:09 PHQ-9: PHQ-9 Score PHQ-9: Total score 2 10/19/23 11:11 Thrive Assessment: Date of Thrive Assessment Date Thrive assessed 06/18/23 10/19/23 11:09 Const Other: General: no acute distress and well developed Nutritional Appearance: well nourished Orientation/consciousness: patient oriented x3 HENMT Head: Yes normocephalic and Yes atraumatic Eyes General: appearance normal, both eyes and all related structures Pupils: Equal, round and reactive pupils present EOM: EOMs intact bilaterally Resp Effort & Inspection: normal respiratory effort Auscultation: clear to auscultation bilaterally Cardio Rate: regular rate Rhythm: regular rhythm Heart sounds: S1 normal heart sound present, S2 normal heart sound present, no g allops, no murmurs and no rubs GI Palpation (GI): No Abdominal aortic bruit present, Soft to palpation, nontender, No hepatosplenomegaly present and No Rebound tenderness present Auscultation: normal bowel sounds General: Yes no CVA tenderness Back/Spine/Pelvis Back: no CVA tenderness Cervical Spine: cervical ROM normal and No Cervical spine tenderness Thoracic/Lumbar Spine: thoraco-lumbar ROM normal, No pain with thoraco-lumbar ROM, No thoracic spinal tenderness and No lumbar spinal tenderness Extrem General: Yes normal to inspection, No edema and No calf tenderness Skin General: warm and dry. Normal skin color. Normal skin turgor Neuro General: patient oriented x3, gait normal and no focal neuro deficit Cranial nerves: Yes Equal, round and reactive pupils present Cognition (Neuro): normal cognition Gait exam (Neuro): Normal gait present Sensory Exam: No Sensory deficit (Neuro) Psych Appearance: grossly normal Affect: normal affect Attitude: cooperative Thought process: Normal thought process present Assessment and Plan Assessment & Plan (1) Hypertension: Code(s): I10 - Essential (primary) hypertension Qualifiers: Hypertension type: unspecified Qualified Code(s): I10 - Essential (pr imary) hypertension Plan: Resting blood pressure is 134/64, within goal of less than 140/90 Continue current treatment regimen Low-sodium diet encouraged Follow-up in 4 months or sooner with symptoms or concerns Verbalized understanding and agreed with the treatment plan (2) Hyperlipidemia: Code(s): E78.5 - Hyperlipidemia, unspecified Qualifiers: Hyperlipidemia type: unspecified Qualified Code(s): E78.5 - Hyperlipidemia, unspecified Plan: Recent lipid panel level was unremarkable except for slightly low HDL, 38 Continue current treatment regimen Advised to limit foods high in saturated fat and avoid foods high in trans fat Routine exercise encouraged Advised to fast for 10-12 hours, may drink water only, and get blood work done before her next visit Follow-up in 4 months Verbalized understanding and agreed with the treatment plan Orders: Orders Lipid Panel 4 Months E78.5 - Hyperlipidemia, unspecified Microalbumin, Random (w Creat) Today Z00.00 - Encounter for general adult medical examination without abnormal findings Vitamin D 25-OH Total Today E55.9 - Vitamin D deficiency, unspecified Medications: Changed From atorvastatin 20 mg PO DAILY 30 days 30 tabs 3RF To atorvastatin 20 mg PO DAILY 90 days 90 tabs 1RF Refilled lisinopril 20 mg PO DAILY 90 days 90 tabs 1RF Coding Level of Care Code Est Pt Level 4 (74133) Diagnoses Hypertension, unspecified type I10 Hypertension type: unspecified Hyperlipidemia, unspecified hyperlipidemia type E78.5 Hyperlipidemia type: unspecified
[2023-10-19 11:05] VITALS: BP 132/58; PULSE 78; RESP 16; TEMP 36.5; O2SAT 98; BMI 27.0
[2023-10-19 11:39] VITALS: BP 134/64
== END 2023-10-19 11:41 | disposition home or self-care (01) ==
PROVIDERS: PCP Nurse Practitioner Family; Visit Provider Nurse Practitioner Family
DX: I10 Essential (primary) hypertension (principal); E78.5 Hyperlipidemia, unspecified
CPT/HCPCS: 99214

== ENCOUNTER 2024-02-08 09:09 | Outpatient (REF) | payer MEDICARE, SELFPAY ==
[2024-02-08 13:14] LABS: Cholesterol 150 mg/dL (<200); HDL Cholesterol 48 mg/dL (>40); LDL Cholesterol Calculated 81 mg/dL (<100); Triglycerides 106 mg/dL (<150)
== END 2024-02-08 09:10 | disposition home or self-care (01) ==
LOC: HO.HMGCLDS 09:09
PROVIDERS: PCP Nurse Practitioner Family; Visit Provider Nurse Practitioner Family
DX: E78.5 Hyperlipidemia, unspecified (principal)
CPT/HCPCS: 36415; 80061

== ENCOUNTER → 2024-04-07 09:14 | Outpatient (AMB) ==
--- NOTE | 2024-04-07 09:12 | A.OFFPC_ITS ---
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 Maintenance Required: No Is last menstrual period known: No Post menopausal: No Patient : No Allergies grass pollen Allergy (Severe, Verified 04/07/24 09:58) Itchy Eyes tree and shrub pollen Allergy (Intermediate, Verified 04/07/24 09:58) Itchy Eyes Medication List - Last Reconciled 04/07/24 by Kianna Stein CNP aspirin 81 mg PO .every other day atorvastatin 20 mg PO DAILY 90 days cholecalciferol (vitamin D3) 125 mcg PO DAILY lisinopril 20 mg PO DAILY 90 days Tobacco use date assessed: 04/07/24 Fall risk assessment: No Falls in past year Last assessed Fall Risk: 04/07/24 Dental Screening Dental Screen Date: 11/03/23 Did you have a dental visit in the last 12 months?: Yes Did you have a dental problem in the last 6 months where you did not have access to dental care?: No Was dental information given to patient?: Patient has dentist HPI HPI Comments History of Present Illness Details 88-year-old female presents for hyperten aviva and hyperlipidemia follow- up She admits to taking her medications as prescribed without adverse reactions She offers no complaints and denies acute symptoms at this time [facility] Medical History Macular degeneration of both eyes Surgical History H/O removal of cyst Family History Sister Breast cancer Lung cancer Family/Other Breast cancer Family/Other Breast cancer Daughter Bipolar 1 disorder Family/Other Schizophrenia Other Mental health disorder Social History Housing: House Patient Tobacco Use Status: Former Tobacco user Tobacco use type: Cigarette Cigarettes Per Day: 8 e-Cigarette/Vaping Use: Never Used Second Hand Smoke Exposure: No service: No Current occupational status: retired Current occupational exposures/hazards: No Cognitive needs: No Hearing needs: No Vision needs: No Questionnaire Thrive Questionnaire Date Thrive assessed: 06/18/23 KEVEN-7 AMB Questionnaire KEVEN-7 Date KEVEN - 7 assessed: 06/18/23 Source: Developed by Drs. Chris Nice, Dalia Fermin, Jean Orr and colleagues, with an educational maritza from [employer]. Review of Systems Const Details: Const Denies chills, Denies fatigue, Denies fever(s), Denies headache(s) and Denies weakness ENT Denies dizziness and Denies headache(s) Card Denies chest pain, Denies lightheadedness, Denies dyspnea and Denies other (Palpitations) Resp Denies cough, Denies dyspnea, Denies wheezing and Denies other ( shortness of breath) GI Denies abdominal pain, Denies melena, Denies hematochezia, Denies change in bowel habits, Denies dyspepsia and Denies nausea Denies hematuria and Denies dysuria Musc Denies abnormal gait, Denies myalgias, Denies arthralgias, Denies numbness and Denies tingling Skin/Breast Denies rash, Denies unusual bruising and Denies wounds Neuro Denies abnormal gait, Denies dizziness, Denies headache(s), Denies memory loss, Denies numbness, Denies Sensory deficit (Neuro), Denies tingling and Denies weakness Psych Denies anxiety, Denies depression, Denies memory loss Endo Denies cold intolerance, Denies fatigue, Denies heat intolerance, Denies polydipsia and Denies polyuria Aller/Immun Denies wheezing Physical exam (Primary Care) Vital Signs: Last Vital Signs Temp 98.0 F 04/07/24 09:26 Pulse 83 04/07/24 09:26 Resp 16 04/07/24 09:26 BP 130/70 04/07/24 09:59 Pulse Ox 97 04/07/24 09:26 Oxygen Delivery Method Room Air 04/07/24 09:26 BMI result Body Mass Index 26.7 Tobacco/Smoking Status: Tobacco use Status Tobacco use date assessed 04/07/24 04/07/24 09:28 Patient Tobacco Use Status Former Tobacco user 04/07/24 09:14 Tobacco use type Cigarette 04/07/24 09:14 e-Cigarette/Vaping Use Never Used 04/07/24 09:14 Thrive Assessment: Date of Thrive Assessment Date Thrive assessed 06/18/23 04/07/24 09:14 Const Other: General: no acute distress and well developed Nutritional Appearance: well nourished Orientation/consciousness: patient oriented x3 [facility] Head: Yes normocephalic and Yes atraumatic Eyes General: appearance normal, both eyes and all related structures Pupils: Equal, round and reactive pupils present EOM: EOMs intact bilaterally Resp Effort & Inspection: normal respiratory effort Auscultation: clear to auscultation bilaterally Cardio Rate: regular rate Rhythm: regular rhythm Heart sounds: S1 normal heart sound present, S2 normal heart sound present, no gallops, no murmurs and no rubs GI Palpation (GI): No Abdominal aortic bruit present, Soft to palpation, nontender, No hepatosplenomegaly present and No Rebound tenderness present Auscultation: normal bowel sounds General: Yes no CVA tenderness Back/Spine/Pelvis Back: no CVA tenderness Cervical Spine: cervical ROM normal and No Cervical spine tenderness Thoracic/Lumbar Spine: thoraco-lumbar ROM normal, No pain with thoraco-lumbar ROM, No thoracic spinal tenderness and No lumbar spinal tenderness Extrem General: Yes normal to inspection, No edema and No calf tenderness Skin General: warm and dry. Normal skin color. Normal skin turgor Neuro General: patient oriented x3, gait normal and no focal neuro deficit Cranial nerves: Yes Equal, round and reactive pupils present Cognition (Neuro): normal cognition Gait exam (Neuro): Normal gait present Sensory Exam: No Sensory deficit (Neuro) Psych Appearance: grossly normal Affect: normal affect Attitude: cooperative Thought process: Normal thought process present Coding Level of Care Code Est Pt Level 4 (88923) Diagnoses Hypertension, unspecified type I10 Hypertension type: unspecified Hyperlipidemia, unspecified hyperlipidemia type E78.5 Hyperlipidemia type: unspecified Laboratory tests ordered as part of a complete physical exam (CPE) Z00.00 Assessment & Plan Assessment & Plan (1) Hypertension: Code(s): I10 - Essential (primary) hypertension Category: Medical Qualifiers: Hypertension type: unspecified Qualified Code(s): I10 - Essential (primary) hypertension Plan: Resting blood pressure is 130/70, within goal of less than 140/90. Continue current treatment regimen. Advised to get lab work done a few days before next visit. Follow-up for an extended physical exam for an extended physical exam on or after 06/17/2024 or sooner with symptoms or concerns. Verbalized understanding and agreed with the plan. (2) Hyperlipidemia: Code(s): E78.5 - Hyperlipidemia, unspecified Category: Medical Qualifiers: Hyperlipidemia type: unspecified Qualified Code(s): E78.5 - Hy perlipidemia, unspecified Plan: Recent triglycerides, total cholesterol, LDL, and HDL levels are normal; 106, 150, 81, and 48 respectively. Continue current treatment regimen. Will continue to monitor. Verbalized understanding and agreed with the plan. (3) Laboratory tests ordered as part of a complete physical exam (CPE): Code(s): Z00.00 - Encounter for general adult medical examination without abnormal findings Category: Medical Plan: Fasting labs ordered as part of a complete physical exam. Advised to fast for at least 10 hours before getting labs drawn. May drink water Verbalized understanding and agreed with treatment plan. Orders: Orders UA CC w/rflx Micro + Cult Today Z00.00 - Encounter for general adult medical examination without abnormal findings Microalbumin, Random (w Creat) Today Z00.00 - Encounter for general adult medical examination without abnormal findings Complete Blood Count Auto Diff Today Z00.00 - Encounter for general adult medical examination without abnormal findings Comprehensive Hernshaw. Panel Fast Today Z00.00 - Encounter for general adult medical examination without abnormal findings TSH reflex Free T4 Today Z00.00 - Encounter for general adult medical examination without abnormal findings Patient Instructions: Fasting labs ordered as part of a complete physical exam. Advised to fast for at least 10 hours before getting labs drawn. May drink water Verbalized understanding and agreed with treatment plan.
== END | disposition home or self-care (01) ==

== ENCOUNTER → 2024-04-07 09:14 | Outpatient (BNVA) | payer MEDICARE, SELFPAY | PROVIDERS: PCP Nurse Practitioner Family; Visit Provider Nurse Practitioner Family | DX: I10 Essential (primary) hypertension (principal); E78.5 Hyperlipidemia, unspecified | CPT/HCPCS: 99212 ==

== ENCOUNTER 2024-06-15 08:33 | Outpatient (REF) | payer MEDICARE, SELFPAY ==
--- OUTSIDE RECORDS SUMMARY | 2024-06-15 08:58 | XMS_ITS | Data Portability ---
Author Organization [place] [facility] Doris Resendiz, JEFF, [facility] Address [address] [place] [address] Assessment No assessment recorded. Plan of Treatment Reminders Order Date Submit Date Provider Last Modified By Organization Details Last Modified Time Details Appointments None recorded. Lab vitamin D, 25-hydrox y, total, serum 022 [employer] [facility], [address], [place], [address], 2 12:50:11 CMP, serum or plasma [employer] [facility], [address], [address], [place], [address], 2 12:50:10 CBC w/ auto diff [employer] [facility], [address], [address], [place], [address], 2 12:50:12 HbA1c (hemoglob in A1c), blood 022 [employer] [facility], [address], [address], [place], [address], 2 12:50:11 microalbu min/creat inine, ratio panel, urine [id number] [email or web address], [address], [address], [place], [address], 2 11:39:16 lipid panel, serum 022 022 DEFIANCE [facility], [address], [address], [place], [address], 2 12:50:09 Referral None recorded. Procedures None recorded. Surgeries None recorded. Imaging None recorded. Medication Orders None recorded. Patient TargetsNo targets recorded. Patient InstructionsNo instructions recorded. Reason for Referral None Reported. Results Created Date Observation Date Name Description Value Unit Range Abnormal Flag Note LastModifiedBy Organization Detail LastModifiedTime 09/19/1909/19/2021 LIPID PANEL , STAND LEFTY cholesterol, total 146 mg/dL <200 normal Not Available [email or web address] [address], [place], [address], 09/19/2021 12:50:09 09/19/19 22 09/19/2021 LIPID PANEL , STAND LEFTY HDL cholesterol 48 mg/dL > or = 50 low Not Available [facility] [address], [place], [address], 09/19/2021 12:50:09 09/19/19 22 09/19/2021 LIPID PANEL , STAND LEFTY triglyceride s 133 mg/dL <150 normal Not Available [email or web address] [address], [place], [address], 09/19/2021 12:50:09 09/19/19 22 09/19/2021 LIPID PANEL , STAND LEFTY LDL-choleste rol 77 mg/dL _(lisseth c) normal Refer ence range : <100 Brian able range <100 mg/dL for prima ry preve ntion ; <70 mg/dL for patie nts with CHD or diabe tic patie nts with > or = 2 CHD risk facto rs. LDL-C is now calcu lated using the Ana n-Hop kins lowellu nita n, which is a valid ated novel sammy prado acnery low the Fried jeff equat ion in the estim ation of LDL-C . Ana n SS et al. URSULA. 2013; 310(1 9): 2061- 2068 (http ://ed ucati on.Qu Maryam heather LUMI Masks. com/f aq/FA Q164) Not Available [employer] [facility] [address], [place], [address], 09/19/2021 12:50:09 09/19/19 22 09/19/2021 LIPID PANEL , STAND LEFTY chol/HDLC ratio 3.0 (calc ) <5.0 normal Not Available [facility] [address], [place], [address], 09/19/2021 12:50:09 09/19/19 22 09/19/2021 LIPID PANEL , STAND LEFTY non HDL cholesterol 98 mg/dL _(lisseth c) <130 normal For patie nts with diabe jeffery plus 1 major ASCVD risk facto r, treat ing to a non-H DL-C goal of <100 mg/dL (LDL- C of <70 mg/dL ) is consi maritza gonzales n. Not Available [employer] [facility] [address], [place], [address], 09/19/2021 12:50:09 09/19/19 22 09/19/2021 ALBUM IN, RANDO M URINE W/CRE ATINI NE creatinine, random urine 160 mg/dL 20-275 normal Not Available [employer] [facility] [address], [place], [address], 09/19/2021 12:50:10 09/19/19 22 09/19/2021 ALBUM IN, RANDO M URINE W/CRE ATINI NE albumin, urine 1.6 mg/dL see note: normal Refer ence Range : Refer ence Range Not estab lishe d Not Available [facility] [address], [place], [address], 09/19/2021 12:50:10 09/19/19 22 09/19/2021 ALBUM IN, RANDO M URINE W/CRE ATINI NE albumin/crea tinine ratio, random urine 10 mcg/m g_cre at <30 normal The ADA defin es abnor malit ies in album in excre tion as follo ws: Album inuri a Categ ory Resul t (mcg/ mg creat inine ) Margaret l to Mildl y incre ased <30 Moder ately incre ased 30-29 9 Sever lina incre ased > OR = 300 The ADA recom mends that at least two of three speci mens colle cted withi n a 3-6 month perio d be abnor mal befor e consi john g a patie nt to be withi n a diagn ostic categ ory. Not Available [facility] [address], [place], [address], 09/19/2021 12:50:10 09/19/19 22 09/19/2021 COMPR EHENS KEYONNA METAB OLIC PANEL glucose 92 mg/dL 65-99 normal Fasti ng refer ence inter gustavo Not Available [facility] [address], [place], [address], 09/19/2021 12:50:10 09/19/19 22 09/19/2021 COMPR EHENS KEYONNA METAB OLIC PANEL urea nitrogen (BUN) 13 mg/dL 7-25 normal Not Available [facility] [address], [place], [address], 09/19/2021 12:50:10 09/19/19 22 09/19/2021 COMPR EHENS KEYONNA METAB OLIC PANEL creatinine 0.96 mg/dL 0.60-0 .95 high Not Available [facility] [address], [place], [address], 09/19/2021 12:50:10 07/21/09/19/2021 COMPR EHENS KEYONNA METAB OLIC PANEL eGFR 58 mL/mi n/1.7 3m2 > or = 60 low The eGFR is based on the CKD-E PI 2020 equat ion. To calcu late the new eGFR from a previ ous Creat inine or Cysta tin C resul t, go to https ://dada covarrubias.flakita castanon.o melyssa/pr ofess ional s/ kdoqi /gfr% 5Fcal culat or Not Available [facility] [address], [place], [address], 09/19/2021 12:50:10 09/19/19 22 09/19/2021 COMPR EHENS KEYONNA METAB OLIC PANEL BUN/creatini ne ratio 14 (calc ) 6-22 normal Not Available [facility] [address], [place], [address], 09/19/2021 12:50:10 09/19/19 22 09/19/2021 COMPR EHENS KEYONNA METAB OLIC PANEL sodium 141 mmol/ L 135-14 6 normal Not Available [facility] [address], [place], [address], 09/19/2021 12:50:10 09/19/19 22 09/19/2021 COMPR EHENS KEYONNA METAB OLIC PANEL potassium 4.2 mmol/ L 3.5-5. 3 normal Not Available [facility] [address], [place], [address], 09/19/2021 12:50:10 09/19/19 22 09/19/2021 COMPR EHENS KEYONNA METAB OLIC PANEL chloride 104 mmol/ L 98-110 normal Not Available [facility] [address], [place], [address], 09/19/2021 12:50:10 09/19/19 22 09/19/2021 COMPR EHENS KEYONNA METAB OLIC PANEL carbon dioxide 29 mmol/ L 20-32 normal Not Available [facility] [address], [place], [address], 09/19/2021 12:50:10 09/19/19 22 09/19/2021 COMPR EHENS KEYONNA METAB OLIC PANEL calcium 9.1 mg/dL 8.6-10 .4 normal Not Available [facility] [address], [place], [address], 09/19/2021 12:50:10 09/19/19 22 09/19/2021 COMPR EHENS KEYONNA METAB OLIC PANEL protein, total 7.1 g/dL 6.1-8. 1 normal Not Available [facility] [address], [place], [address], 09/19/2021 12:50:10 09/19/19 22 09/19/2021 COMPR EHENS KEYONNA METAB OLIC PANEL albumin 4.1 g/dL 3.6-5. 1 normal Not Available [facility] [address], [place], [address], 09/19/2021 12:50:10 09/19/19 22 09/19/2021 COMPR EHENS KEYONNA METAB OLIC PANEL globulin 3.0 g/dL_ (calc ) 1.9-3. 7 normal Not Available [facility] [address], [place], [address], 09/19/2021 12:50:10 09/19/19 22 09/19/2021 COMPR EHENS KEYONNA METAB OLIC PANEL albumin/glob ulin ratio 1.4 (calc ) 1.0-2. 5 normal Not Available [facility] [address], [place], [address], 09/19/2021 12:50:10 09/19/19 22 09/19/2021 COMPR EHENS KEYONNA METAB OLIC PANEL bilirubin, total 0.4 mg/dL 0.2-1. 2 normal Not Available [facility] [address], [place], [address], 09/19/2021 12:50:10 09/19/19 22 09/19/2021 COMPR EHENS KEYONNA METAB OLIC PANEL alkaline phosphatase 70 U/L 37-153 normal Not Available [facility] [address], [place], [address], 09/19/2021 12:50:10 09/19/19 22 09/19/2021 COMPR EHENS KEYONNA METAB OLIC PANEL AST 20 U/L 10-35 normal Not Available [facility] [address], [place], [address], 09/19/2021 12:50:10 09/19/19 22 09/19/2021 COMPR EHENS KEYONNA METAB OLIC PANEL ALT 13 U/L 6-29 normal Not Available [facility] [address], [place], [address], 09/19/2021 12:50:10 09/19/19 22 09/19/2021 HEMOG LOBIN A1C hemoglobin A1C 5.5 %_of_ total _HGB <5.7 normal For the purpo se of jerod dennis for the prese nce of diabe jeffery: <5.7% Consi stent with the absen ce of diabe jeffery 5.7-6 .4% Consi stent with incre ased risk for diabe jeffery (pred iabet es) > or =6.5% Consi stent with diabe jeffery This assay resul t is consi stent with a decre ased risk of diabe jeffery. Curre ntly, no conse nsus exist s cande cooper use of hemog lobin A1c for diagn osis of diabe jeffery in child tosin. Accor kenneth to Ameri can Diabe jeffery Assoc iatio n (ADA) guide lines , hemog lobin A1c <7.0% repre sents optim al contr ol in non-p regna nt diabe tic patie nts. Diffe rent metri cs may apply to speci fic patie nt popul ation s. Stand ards of Medic al Care in Diabe 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 Not Available [facility] [address], [place], [address], 09/19/2021 12:50:10 09/19/19 22 09/19/2021 VITAM IN D,25- OH,TO JENNY,I A vitamin D,25-oh,tota l,ia 72 NG/mL 30-100 normal Vitam in D Statu s 25-OH Vitam in D: Defic iency : <20 ng/mL Insuf ficie ncy: 20 - 29 ng/mL Optim al: > or = 30 ng/mL For 25-OH Vitam in D testi ng on patie nts on D2-heath pplem entat ion and patie nts for whom quant itati on of D2 and D3 fract ions is requi red, the [facility] e[facility](TM ) 25-OH VIT D, (D2,D 3), LC/MS /MS is recom dillon d: order code 15028 (nusrat ents >2yrs ). See Note 1 Note 1 For addit ional infor shanell nevarez refer to http: //lucas Varghese gnost ics.c om/fa q/FAQ 199 (This link is being provi ded for infor lyudmila gomez/ educrobby mccarty l purpo ses only. ) Not Available [facility] [address], [place], [address], 09/19/2021 12:50:11 09/19/19 22 09/19/2021 CBC (INCL UDES DIFF/ PLT) white blood cell count 6.8 thous and/u L 3.8-10 .8 normal Not Available [facility] [address], [place], [address], 09/19/2021 12:50:11 09/19/19 22 09/19/2021 CBC (INCL UDES DIFF/ PLT) red blood cell count 4.14 buffy on/uL 3.80-5 .10 normal Not Available [facility] [address], [place], [address], 09/19/2021 12:50:11 09/19/19 22 09/19/2021 CBC (INCL UDES DIFF/ PLT) hemoglobin 12.8 g/dL 11.7-1 5.5 normal Not Available [facility] [address], [place], [address], 09/19/2021 12:50:11 09/19/19 22 09/19/2021 CBC (INCL UDES DIFF/ PLT) hematocrit 37.8 % 35.0-4 5.0 normal Not Available [facility] [address], [place], [address], 09/19/2021 12:50:11 09/19/19 22 09/19/2021 CBC (INCL UDES DIFF/ PLT) MCV 91.3 fL 80.0-1 00.0 normal Not Available [facility] [address], [place], [address], 09/19/2021 12:50:11 09/19/19 22 09/19/2021 CBC (INCL UDES DIFF/ PLT) MCH 30.9 pg 27.0-3 3.0 normal Not Available [facility] [address], [place], [address], 09/19/2021 12:50:11 09/19/19 22 09/19/2021 CBC (INCL UDES DIFF/ PLT) MCHC 33.9 g/dL 32.0-3 6.0 normal Not Available [facility] [address], [place], [address], 09/19/2021 12:50:11 09/19/19 22 09/19/2021 CBC (INCL UDES DIFF/ PLT) RDW 11.9 % 11.0-1 5.0 normal Not Available [facility] [address], [place], [address], 09/19/2021 12:50:11 09/19/19 22 09/19/2021 CBC (INCL UDES DIFF/ PLT) platelet count 222 thous and/u L 140-40 0 normal Not Available [facility] [address], [place], [address], 09/19/2021 12:50:11 09/19/19 22 09/19/2021 CBC (INCL UDES DIFF/ PLT) MPV 10.2 fL 7.5-12 .5 normal Not Available [facility] [address], [place], [address], 09/19/2021 12:50:11 09/19/19 22 09/19/2021 CBC (INCL UDES DIFF/ PLT) absolute neutrophils 4298 cells /uL 1500-7 800 normal Not Available [facility] [address], [place], [address], 09/19/2021 12:50:11 09/19/19 22 09/19/2021 CBC (INCL UDES DIFF/ PLT) absolute lymphocytes 1788 cells /uL 850-39 00 normal Not Available [facility] [address], [place], [address], 09/19/2021 12:50:11 09/19/19 22 09/19/2021 CBC (INCL UDES DIFF/ PLT) absolute monocytes 442 cells /uL 200-95 0 normal Not Available [facility] [address], [place], [address], 09/19/2021 12:50:11 09/19/19 22 09/19/2021 CBC (INCL UDES DIFF/ PLT) absolute eosinophils 211 cells /uL 15-500 normal Not Available [facility] [address], [place], [address], 09/19/2021 12:50:11 09/19/19 22 09/19/2021 CBC (INCL UDES DIFF/ PLT) absolute basophils 61 cells /uL 0-200 normal Not Available [facility] [address], [place], [address], 09/19/2021 12:50:11 09/19/19 22 09/19/2021 CBC (INCL UDES DIFF/ PLT) neutrophils 63.2 % normal Not Available [facility] [address], [place], [address], 09/19/2021 12:50:11 09/19/19 22 09/19/2021 CBC (INCL UDES DIFF/ PLT) lymphocytes 26.3 % normal Not Available [facility] [address], [place], [address], 09/19/2021 12:50:11 09/19/19 22 09/19/2021 CBC (INCL UDES DIFF/ PLT) monocytes 6.5 % normal Not Available [facility] [address], [place], [address], 09/19/2021 12:50:11 09/19/19 22 09/19/2021 CBC (INCL UDES DIFF/ PLT) eosinophils 3.1 % normal Not Available [facility] [address], [place], [address], 09/19/2021 12:50:11 09/19/19 22 09/19/2021 CBC (INCL UDES DIFF/ PLT) basophils 0.9 % normal Not Available [facility] [address], [place], [address], 09/19/2021 12:50:11 Result Notes None recorded. Problems Name Problem SNOMED Code Status Onset Date Resolution Date Notes Provider Name and Address Organization Details Recorded Time Vitamin D deficiency 04445596 Active 022 FELICITY RESHMA [facility], [place] 08:07:18 Problem Notes None recorded. Medical Equipment None Reported. Medications Name Sig Start Date Stop Date Status Note LastModified by Organization Details LastModified Time atorvastatin 40 mg tablet TAKE ONE TABLET BY MOUTH ONE TIME DAILY active Not Available Not Available No t Available atorvastatin 20 mg tablet Once a day: 1 tablet 20 MG active Not Available Not Available No t Available atorvastatin 10 mg tablet TAKE ONE TABLET BY MOUTH ONE TIME DAILY active Not Available Not Available No t Available lisinopril 20 mg tablet once daily: TAKE ONE TABLET BY MOUTH ONE TIME DAILY 20 MG active Not Available Not Available No t Available ergocalciferol (vitamin D2) 1,250 mcg (50,000 unit) capsule TAKE ONE CAPSULE BY MOUTH EVERY WEEK 2021 active Not Available Not Available Not Avai lable Vitals None Recorded Social History None recorded. Functional Status None recorded. Mental Status None recorded. Family History Nothing Reported. Medical History No medical history recorded. Gynecological HistoryNo gynecological history recorded. Obstetrics History GPAL:G 0 P 0 0 0 0 Past Encounters Encounter ID Performer Location Encounter Start Date Encounter Closed Date Diagnosis/Indication Diagnosis SNOMED-CT Code Diagnosis ICD10 Code Diagnosis Note [id number] Ninfa Patel APRN [facility] - [address] [place] [address] 09/18/2021 07:47:16 09/18/2021 08:17:34 Vitamin D deficiency 98752310 E55.9 Hyperlipidemia 50226272 E78.1 Essential hypertension 39671202 I10 Health Concerns Section Related Observation LastModified by Organization Detai ls LastModified Time None Recorded Concern Status LastModified by Organization Details LastModified Time None Recorded Advance Directives Directive None Recorded Payers None recorded. OBGyn Episode No OBEpisode recorded.
--- OUTSIDE RECORDS SUMMARY | 2024-06-15 08:58 | XMS_ITS | Data Portability ---
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 Plan of Treatment Reminders Order Date Submit Date Provider Last Modified By Organization Details Last Modified Time Details Appointments None recorded. Lab None recorded. Referral None recorded. Procedures None recorded. Surgeries None recorded. Imaging CT, chest, w/o contrast - STAT CT CHEST W/O CONTRAST 2019 020 ASHLEY Not available 0 17:09:26 Medication Orders None recorded. Patient TargetsNo targets recorded. Patient InstructionsNo instructions recorded. Reason for Referral None Reported. Results Created Date Observation Date Name Description Value Unit Range Abnormal Flag Note LastModifiedBy Organization Detail LastModifiedTime 08/21/19 20 04/18/2018 CT, chest , w/o contr ast No observ ation record ed. [email or web address] Not Available 2019 15:33:54 08/21/19 20 08/21/2019 CT, chest , w/o contr ast CT Chest w/o Contra st INDICA TION: Abnorm al chest x-ray. TECHNI QUE: Imagin g of the chest was perfor med. Multip lanar recons tructi ons were obtain ed. CONTRA ST: No intrav enous contra st was admini stered . CTDI Vol: 16.71 mGy. A dose reduct ion techni que was utiliz ed. All CT scans at this facili ty use dose modula tion, iterat cat recons tructi on and/or weight based dosing when approp riate to reduce radiat ion dose to as low as reason ably achiev able. COMPAR MARSHA: No pertin ent examin ations are availa ble for compar marsha. FINDIN GS: Bilate ral subple ural reticu lation and inters titial thicke jeannie with somewh at of a lower lobe predom inance . Minima l bibasi lar fibros is. Scatte red mild bronch iectas is in both lungs. No suspic ious opacit y or nodule . No pleura l effusi on or pneumo thorax . Normal calibe r main pulmon eliel artery . Normal heart size. No signif icant perica rdial fluid. Normal calibe r thorac ic aorta. Scatte red, promin ent lymph nodes throug hout the medias tinum are nonspe cific but likely reacti ve. Visual ized esopha lida is grossl y normal . No hiatal hernia . Visual ized upper abdomi nal struct ures are within normal limits . No aggres sive osseou s lesion s. IMPRES FLORESITA: 1. Bilate ral subple ural reticu lation and inters titial thicke jeannie with a lower lobe predom inance . Minima l bibasi lar fibros is with scatte red areas of mild bronch iectas is. 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 2. Recomm end contin ued CT survei llance . WSN: YOHANA Greenfield RADIOL OGIST: She MD vijaya, Troy shen M Date / Time Transc ribed: 2019 17:04 By: LUCIA Carroll ed Date: 2019 17:06 [email or web address] [facility] [address] [place], [address], 08/28/2019 11:41:56 Result Notes None recorded. Procedures Surgical History None recorded. Imaging Results Imaging Date Name Status LastModified by Organiz ation Details LastModified Time 04/18/2018 CT, chest, w/o contrast completed [email or web address] Information not available 08/21/2019 15:33:54 08/21/2019 CT, chest, w/o contrast completed [email or web address] [facility] [address] [place], [address], 08/28/2019 11:41:56 Procedure Notes None recorded. Medical Equipment None Reported. Allergies No known drug allergies Medications Name Sig Start Date Stop Date Status Note LastModified by Organization Details LastModified Time lisinopril 20 mg tabs active Not Available Not Available Not Available atorvastatin calcium 10 mg tabs 2019 completed Not Available Not Available Not Available atorvastatin calcium 40 mg tabs active Not Available Not Available Not Available Vitals Date Recorded Body height Body mass index (BMI) Body weight Heart rate Oxygen saturation Oxygen saturation in Arterial blood by Pulse oximetry Systolic blood pressure Diastolic blood pressure Provider Name and Address Organization Details Last Updated DateTime 0 157.48 cm 27.4 kg/m2 94914.8 6 g 89 /min 95 % 95 % 110 mm[Hg] 70 mm[Hg] Gabriela Leger [facility] 0 15:14:58 Social History Question Answer Notes LastModified by Organizat ion Details LastModified Time Tobacco Smoking Status [facility]/21[facility]2019 15:16:20 Are You Blind Or Do You Have Difficulty Seeing? No Information not available 08/21/2019 Are You Deaf Or Do You Have Serious Difficulty Hearing? No Information not available 08/21/2019 Forms Of Tobacco Cigarettes Informat ion not available 08/21/2019 Have You Had A Fever And/or Symptoms Of A Lower Respiratory Illness (cough, Difficulty Breathing, Etc)? No Information not available 08/21/2019 How Much Tobacco Do You Smoke? 0.5 PPD Information not available 08/21/2019 How Many Years Have You Smoked Tobacco? 5 Information not available 08/21/2019 Sex: Unknown Functional Status Question Answer Note LastModified by Organization D etails LastModified Time Do you have difficulty walking or climbing stairs? No Information not available 08/21/2019 Do you have difficulty doing errands alone? No Information not available 08/21/2019 Do you have difficulty dressing or bathing? No Information not available 08/21/2019 Mental Status Question Answer Note LastModified by Organization D etails LastModified Time Do you have difficulty concentrating, remembering or making decisions? No Information no t available 08/21/2019 Family History Nothing Reported. Medical History No medical history recorded. Gynecological HistoryNo gynecological history recorded. Obstetrics History GPAL:G 0 P 0 0 0 0 Immunizations Vaccine Type Date Status Note Provider Nam e and Address Organization Details Recorded Time Influenza, split virus, quadrivalent, preservative 9 [place] 08/21/2019 15:15:58 Past Encounters Encounter ID Performer Location Encounter Start Date Encounter Closed Date Diagnosis/Indication Diagnosis SNOMED-CT Code Diagnosis ICD10 Code Diagnosis Note [id number] Carmen Canas MD [id number] [id number] [address] [facility] [address] [place] [address] 08/21/2019 14:47:09 08/21/2019 15:34:23 Solitary nodule of lung 108211039 R91.1 Patient had a 1.6 cm opacity probably was atelectasi s or scar tissue. I doubt this was cancer.How ever we need a chest CT scan as soon as possible. 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 I explained to patient that if there is evidence of progressiv e ILD she will need PFTs and probably treatment. She was with adequate oxygenatio n today. We will await CT scan and decide about next step. Health Concerns Section Related Observation LastModified by Organization Detai ls LastModified Time None Recorded Concern Status LastModified by Organization Details LastModified Time None Recorded Advance Directives Directive None Recorded Payers Encounter Date Sequence Insurance Name Policy Number Policy Kelly Covered Member ID Kelly Member ID Guarantor Name 08/21/2019 1 [facility] (MEDICARE REPLACEMENT/A DVANTAGE - O) [id number] Kaylah Banerjee [id number] Kaylah Banerjee Notes Date Note Type Note Provider Name and Address Organization Details Recorded Time 08/21/2019 text/html Patient is a devika y pleasant 84-year-old woman who came for evaluation due to an abnormal chest CT scan. Patient has some cough that she believes it is associated with postnasal drip. She had a CT of the chest April last year.Chest CT scan discussed with patient and has a 4 mm lung nodule and a right 1.6 x 1.6 cm focal density associated with major fissure that may be atelectasis. There are fibrotic changes.She denies any wheezing or chest tightness. She smoked for less than 10 pack year. However she has extensive secondhand smoke exposure. She denies any cough with blood or any weight loss. She has family history of lung cancer, heart disease and stroke. Carmen Canas MD [address] [facility],[address], [place], [address], [facility] - [place] 08/21/2019 19:50:29 OBGyn Episode No OBEpisode recorded.
--- OUTSIDE RECORDS SUMMARY | 2024-06-15 08:58 | XMS_ITS | Patient Health Record ---
Author Organization [facility] Cheryl mayberry Billing Info Address [address] [place] [address] [place] [address] Support Name Relationship Address Phone Kaylah Banerjee Guarantor Unknown [phone] Allergies Allergen (clinical drug ingredient) Drug/Non Drug Allergy documented on EMR Reaction Allergy Type Onset Date Status simvastatin Zocor vomiting Drug Allergy Activ e Reason For Referral No Information Medications Medication SIG (Take, Route, Frequency, Duration) Notes Start Date End Date Status Atorvastatin Calcium 10 MG 1 tablet Oral ly Once a day Not-Taking Ibuprofen 400 MG 1 tablet Orally Three times a day for 30 day(s) 03/14/2014 Not-Taking Meclizine HCl 25 MG 1 tablet as needed Orally Once a day for 30 day(s) 04/17/2014 Not-Taking Ranitidine 75 75 mg as directed Orally Once a day Active MethylPREDNISolone 4 MG as directed Oral ly As directed for 6 day(s) 04/17/2014 Not-Taking Meclizine HCl 25 MG 1 tablet as needed Orally BID for 30 day(s) 04/17/2014 Not-Taking Lisinopril 20 MG 1 tablet Orally Once a day for 90 day(s) Active Fenofibrate Micronized 134 MG 1 capsule with a meal Orally Once a day for 90 days Active Immunizations Vaccine Route Administration Date Status Comme nts PNEUMOCOCCAL (Past vaccine of unknown type) Unknown 03/21/2012 Administered zINFLUENZA TRI-NADIR (FLUZONE), 3 YRS +, NO PRES - ALL PAYORS 0 11/14/2013 Pending TDAP (BOOSTRIX) 0 04/17/2014 Pending PNEUMOCOCCAL - 23 POLY (PNEUMOVAX 23) 0 04/17/2014 Pending TDAP (BOOSTRIX) IM Intramuscular 06/12/2014 Administered zFLU 4V (FLUARIX QUAD), 6 MO+, NO PRES - ALL PAYORS IM Intramuscular 12/05/2014 Administered Problems Problem Type SNOMED Code ICD Code Onset Dates Problem Status W/U Status Risk Notes Problem 37890638 Pure hypercholesterolemia (E78.0) Active confirmed Problem 30698482 Essential (prima ry) hypertension (I10) Active confirmed Problem 340551535 Cataract (366.9) Active confirmed Problem 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
[2024-06-15 11:27] LABS: MANUAL DIFF FLAG NO
[2024-06-15 11:31] LABS: Basophils Absolute Auto 0.1 X10*3/uL (0.0-0.2); Basophils Percent Auto 0.8 % (0-2); Eosinophils Absolute Auto 0.1 X10*3/uL (0.0-0.4); Eosinophils Percent Auto 1.6 % (0-4); Hematocrit 36.2 % (37.0-47.0); Hemoglobin 11.7 g/dl (12.0-16.0); Imm Gran Abs Auto 0.02 X10*3/uL (0.00-0.03); Imm Gran Pct Auto 0.3 % (0.0-0.4); Lymphocytes Absolute Auto 1.5 X10*3/uL (1.2-4.9); Lymphocytes Percent Auto 23.6 % (20-40); Mean Corpuscular HGB Conc 32.3 g/dl (31.0-35.0); Mean Corpuscular Volume 92.8 fL (80.0-98.0); Monocytes Absolute Auto 0.5 X10*3/uL (0.1-1.2); Monocytes Percent Auto 7.2 % (2-11); Neutrophils Absolute Auto 4.1 x10*3/uL (2.0-8.3); Neutrophils Percent Auto 66.5 % (45-73); Platelet Count 249 X10*3/uL (160-400); Red Cell Distribution Width 12.6 % (11.0-16.0); White Blood Count 6.2 X10*3/uL (4.8-10.8)
[2024-06-15 12:33] LABS: TSH reflex Free T4 1.88 uIU/mL (0.32-4.0)
[2024-06-15 12:35] LABS: Alanine Aminotransferase 15 U/L (0-31); Albumin Level 3.8 g/dL (3.5-5.0); Alkaline Phosphatase 90 U/L (39-117); Anion Gap 11 (12-20); Aspartate Amino Transferase 29 U/L (5-31); Bilirubin Total 0.6 mg/dL (0.0-1.0); Blood Urea Nitrogen 14 mg/dL (9-16); Calcium 9.2 mg/dL (8.4-10.2); Carbon Dioxide 28 mmol/L (22-29); Chloride 105 mmol/L (96-108); Estimated Glomerular Filt Rate > 60; Glucose Fasting 92 mg/dL (60-99); Potassium 4.3 mmol/L (3.3-5.1); Sodium 140 mmol/L (135-145); Total Protein 7.4 g/dL (6.5-8.0)
== END 2024-06-15 08:34 | disposition home or self-care (01) ==
LOC: HO.WFDLDS 08:33
PROVIDERS: Visit Provider Nurse Practitioner Family
DX: E55.9 Vitamin D deficiency, unspecified (principal); Z00.00 Encounter for general adult medical examination without abnormal findings
CPT/HCPCS: 36415; 80053; 82306; 84443; 85025

== ENCOUNTER 2024-06-20 09:51 | Outpatient (AMB) | payer MEDICARE, SELFPAY ==
--- NOTE | 2024-06-20 09:58 | A.OFFPC_ITS ---
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: No Is last menstrual period known: No Post menopausal: No Patient : No Allergies grass pollen Allergy (Severe, Verified 06/20/24 10:18) Itchy Eyes tree and shrub pollen Allergy (Intermediate, Verified 06/20/24 10:18) Itchy Eyes Medication List - Last Reviewed 06/20/24 by Mercedes Bennett MA atorvastatin 20 mg PO DAILY 90 days cholecalciferol (vitamin D3) 25 mcg PO DAILY lisinopril 20 mg PO DAILY 90 days Tobacco use date assessed: 06/20/24 Fall risk assessment: No Falls in past year Last assessed Fall Risk: 06/20/24 Dental Screening Dental Screen Date: 06/20/24 Did you have a dental visit in the last 12 months?: Yes Did you have a dental problem in the last 6 months where you did not have access to dental care?: No Was dental information given to patient?: Patient has dentist HPI HPI Comments History of Present Illness Details 89-year-old female presents for an exten ded physical exam. She admits to taking her medications as prescribed without adverse reactions. Acute issue(s) - Reports chronic posterior neck sorenes s and stiffness Past Medical History - Hyperlipidemia, hypertension, osteopen ia, macular degeneration of both eyes, and cataract surgery both eyes Social History - Former smoker, quit 66 years ago. Does not vape. Does not drink alcohol. Denies recreational drug use - Has been making healthy dietary choice s. Walks frequently. Generally sleep well Health maintenance - Last eye exam was in 04/2024 at [facility]. She will sign release for her PCP to obatin her ophthalmology record - Last dental visit was in 03/2024 - She notes that her last Tdap vaccine w as 5 years ago - She notes that she is up-to-date on pneumonia vaccines - She has never been vaccinated for sams gles; declines vaccination - She notes that she was vaccinated for the flu last fall - Last pap smear test was at age 77: nor mal. She no longer perform pap - Last mammogram was at [facility] [place] in 08/26/2023 - Last colonoscopy was several years ago : benign polyps. Declines colonoscopy. No known h/o colon cancer. No family h/o colon cancer. Cologuard ordered - Last dexa scan was in 04/2022: yue bustamante. She states that she takes OTC viamin D3 PFSH Medical History Macular degeneration of both eyes Surgical History H/O removal of cyst Family History Sister Breast cancer Lung cancer Family/Other Breast cancer Family/Other Breast cancer Daughter Bipolar 1 disorder Family/Other Schizophrenia Other Mental health disorder Social History Housing: House Patient Tobacco Use Status: Former Tobacco user Tobacco use type: Cigarette Cigarettes Per Day: 8 e-Cigarette/Vaping Use: Never Used Second Hand Smoke Exposure: No service: No Current occupational status: retired Current occupational exposures/hazards: No Cognitive needs: No Hearing needs: No Vision needs: No Questionnaire PHQ-9 Over the last 2 weeks, how often have you been bothered by any of the following problems? 1. Little interest or pleasure in doing things: not at all 2. Feeling down, depressed, or hopeless: not at all 3. Trouble falling or staying asleep, or sleeping too much: not at all 4. Feeling tired or having little energy: not at all 5. Poor appetite or overeating: not at all 6. Feeling bad about yourself - or that you are a failure or have let yourself or your family down: not at all 7. Trouble concentrating on things, such as reading the newspaper or watching television: not at all 8. Moving or speaking so slowly that other people could have noticed. Or the opposite - being so fidgety or restless that you have been moving around a lot more than usual: not at all 9. Thoughts that you would be better off or of hurting yourself in some way: not at all Total score: 0 Depression Screening Interpretation: Negative Depression Screening Done: Yes 54357 - PHQ-9 Billing: Yes Source: Developed by Drs. Chris Nice, Dalia Fermin, Jean Orr and colleagues, with an educational maritza from [employer]. Thrive Questionnaire Date Thrive assessed: 06/20/24 I am a: Patient What is your living situation today?: I have a steady place to live Within the past 12 months, did the food you bought not last and you didn't have the money to get more?: Never true Within the past 12 months, did you worry whether your food would run out before you got money to buy more?: Never true Do you have trouble paying for medicines?: No Do you have trouble getting transportation to medical appointments?: No Do you have trouble paying your heating and electricity bill?: No Do you have trouble taking care of your child, family member or friend?: No Do you have trouble with day-to-day activities such as bathing, preparing meals, shopping, managing finances, etc.?: No Are you currently unemployed and looking for a job?: No Are you interested in more education?: No Please select the resources that you would like help with: None Currently or been in a relationship where the following occur: I choose not to answer THRIVE Score: 0 AUDIT C Alcohol Use Questionnaire (AUDIT-C) 1. How often do you have a drink containing alcohol?: Never Total Score: 0 KEVEN-7 AMB Questionnaire KEVEN-7 Date KEVEN - 7 assessed: 06/20/24 Feeling nervous, anxious, or on edge: 0 = Not at all Not being able to stop or control worryin = Not at all Worrying too much about different things: 1 = Several days Trouble relaxin = Not at all Being so restless that it is hard to sit still: 0 = Not at all Becoming easily annoyed or irritable: 0 = Not at all Feeling afraid as if something awful might happen: 0 = Not at all Total KEVEN-7 score (0-4 normal; 5-9 mild; 10-14 moderate; 15-21 severe): 1 Source: Developed by Dalia Todd Kurt Kroenke and colleagues, with an educational maritza from [employer]. KEVEN-7 Assessment Billing KEVEN-7 Assessment Tool: KEVEN-7 Assessment 00399 Review of Systems Const Details: Denies chills, Denies fatigue, Denies fever(s), Denies headache(s) and Denies weakness HEENT Denies change in vision, Denies dizziness, Denies headache(s), Denies hearing loss, Denies nasal congestion, Denies sinus pain, Denies sinus pressure and Denies sore throat Card Denies chest pain, Denies lightheadedness, Denies dyspnea and Denies other (palpitations) Resp Denies cough, Denies dyspnea and Denies wheezing GI Denies abdominal pain, Denies melena, Denies hematochezia, Denies change in bowel habits, Denies dyspepsia and Denies nausea Denies hematuria and Denies dysuria Musc Reports neck soreness, Denies abnormal gait, Denies arthralgias, Denies numbness and Denies tingling Skin/Breast Denies rash, Denies unusual bruising and Denies wounds Neuro Denies abnormal gait, Denies dizziness, Denies headache(s), Denies memory loss, Denies numbness, Denies Sensory deficit (Neuro), Denies tingling and Denies weakness Psych Denies anxiety, Denies depression and Denies memory loss Endo Denies cold intolerance, Denies fatigue, Denies heat intolerance, Denies polydipsia and Denies polyuria Tonio/Lymph Denies easy bleeding and Denies easy bruising Aller/Immun Denies wheezing Physical exam (Primary Care) Vital Signs: Last Vital Signs Temp 98.3 F 06/20/24 10:06 Pulse 86 06/20/24 10:06 Resp 16 06/20/24 10:06 BP 120/60 06/20/24 10:22 Pulse Ox 97 06/20/24 10:06 Oxygen Delivery Method Room Air 06/20/24 10:06 BMI result Body Mass Index 26.7 Tobacco/Smoking Status: Tobacco use Status Tobacco use date assessed 06/20/24 06/20/24 10:09 Patient Tobacco Use Status Former Tobacco user 06/20/24 09:59 Tobacco use type Cigarette 06/20/24 09:59 e-Cigarette/Vaping Use Never Used 06/20/24 09:59 PHQ-9: PHQ-9 Score PHQ-9: Total score 0 06/20/24 10:02 Depression Screening Interpretation: Negative Thrive Assessment: Date of Thrive Assessment Date Thrive assessed 06/20/24 06/20/24 10:02 Currently or been in a relationship where the following occur: I choose not to answer Const Other: General: no acute distress, well developed, alert and awake Nutritional Appearance: well nourished Orientation/consciousness: patient oriented x3 HENMT Head: Yes normocephalic and Yes atraumatic Ears: hearing grossly normal bilaterally and TM's normal bilaterally General nose exam: Normal external nose present and Normal nares present Mouth: Normal oral and palatal mucosa present and moist mucous membranes Teeth and gingiva: dentition normal Throat: Yes oropharynx normal Eyes Pupils: Equal, round and reactive pupils present and Pupil accommodation reflex normal EOM: EOMs intact bilaterally Neck Neck: Yes normal visual inspection, Yes no lymphadenopathy and Yes trachea midline Thyroid: Thyroid normal Carotids: no bruits Lymphatic: no lymphadenopathy noted Chest Chest palpation & inspection: normal inspection of the chest Resp Effort & Inspection: normal respiratory effort Auscultation: clear to auscultation bilaterally Cardio Rate: regular rate Rhythm: regular rhythm Heart sounds: S1 normal heart sound present, S2 normal heart sound present, no gallops, no murmurs and no rubs Bruits: no abdominal aortic bruits and no carotid bruits GI Palpation (GI): No Abdominal aortic bruit present, Soft to palpation, nontender, No hepatosplenomegaly present and No Rebound tenderness present Auscultation: normal bowel sounds General: Yes no CVA tenderness Back/Spine/Pelvis Back: no CVA tenderness Cervical Spine: cervical ROM normal and No Cervical spine tenderness Thoracic/Lumbar Spine: thoraco-lumbar ROM normal, No pain with thoraco-lumbar ROM, No thoracic spinal tenderness and No lumbar spinal tenderness Skin General: warm and dry. Normal skin color. Normal skin turgor Lesions: no lesions Rashes: no rashes Trauma: no lacerations or abrasions Wounds: no wounds Nails: normal Neuro General: patient oriented x3, gait normal and CN's II-XI intact bilaterally Cranial nerves: Yes Equal, round and reactive pupils present Cognition (Neuro): normal cognition Gait exam (Neuro): Normal gait present Motor exam (neuro): 5/5 motor strength present throughout Sensory Exam: No Sensory deficit (Neuro) Deep tendon reflexes (DTR's): Right patellar reflex intensity grade: 2+ and Left patellar reflex intensity grade: 2+ Extrem General: Yes normal to inspection, No edema and No calf tenderness Psych Appearance: grossly normal Affect: normal affect Attitude: cooperative Thought process: Normal thought process present Coding Level of Care Code Est Pt Level 3 (70295) Est Pt Prev Care >65y(93173) Diagnoses Normal physical examination, routine Z00.00 Hypertension, unspecified type I10 Hypertension type: unspecified Neck pain M54.2 Additional Codes KEVEN-7 Assessment Billing - KEVEN-7 Assessment Tool: KEVEN-7 Assessment 40617 ([id number]) PHQ-9 - 34557 - PHQ-9 Billing: Yes ([id number]) Assessment & Plan Assessment & Plan (1) Normal physical examination, routine: Code(s): Z00.00 - Encounter for general adult medical examination without abnormal findings Category: Medical Plan: No significant functional limitation noted. Recent lab results reviewed; benign findings. Continue current treatment regimen. Healthy diet and routine exercise encouraged. Perform fasting lab work a few days before next visit and follow-up for hypert ension and hyperlipidemia in 3 months. Return sooner with symptoms or concerns. Verbalized understanding and agreed with the plan. (2) Hypertension: Code(s): I10 - Essential (primary) hypertension Category: Medical Qualifiers: Hypertension type: unspecified Qualified Code(s): I10 - Essential (primary) hypertension Plan: Resting blood pressure is 120/60, within goal of less than 140/90. Continue current treatment regimen. Follow-up in 3 months. Verbalized understanding and agreed with the plan (3) Neck pain: Code(s): M54.2 - Cervicalgia Category: Medical Plan: Posterior neck muscle tenderness to palpation and neck rotation. Likely muscle strain. May take Tylenol ibuprofen as needed for pain or discomfort. Warm/cool compresses encouraged. Follow-up with worsening or new symptoms. Verbalized understanding and agreed with the plan. Orders: Orders Lipid Panel Today E78.5 - Hyperlipidemia, unspecified Referrals Cologuard Test Z12.11 - Encounter for screening for malignant neoplasm of colon, Z12.12 - Encounter for screening for malignant neoplasm of rectum
[2024-06-20 10:06] VITALS: BP 154/68; PULSE 86; RESP 16; TEMP 36.8; O2SAT 97; BMI 26.7
[2024-06-20 10:22] VITALS: BP 120/60
--- OUTSIDE RECORDS SUMMARY | 2024-06-20 11:01 | XMS_ITS | Data Portability ---
Author Organization [place] [facility] Doris Resendiz, JEFF, [facility] Address [address] [place] [address] Assessment No assessment recorded. Plan of Treatment Reminders Order Date Submit Date Provider Last Modified By Organization Details Last Modified Time Details Appointments None recorded. Lab vitamin D, 25-hydrox y, total, serum 022 [email or web address], [address], [place], [address], 2 12:50:11 CMP, serum or plasma [email or web address], [address], [address], [place], [address], 2 12:50:10 CBC w/ auto diff [email or web address], [address], [address], [place], [address], 2 12:50:12 HbA1c (hemoglob in A1c), blood 022 [email or web address], [address], [address], [place], [address], 2 12:50:11 microalbu min/creat inine, ratio panel, urine [facility], [address], [address], [place], [address], 2 11:39:16 lipid panel, serum 022 022 [place] [facility], [address], [address], [place], [address], 2 12:50:09 Referral None recorded. Procedures None recorded. Surgeries None recorded. Imaging None recorded. Medication Orders None recorded. Patient TargetsNo targets recorded. Patient InstructionsNo instructions recorded. Reason for Referral None Reported. Results Created Date Observation Date Name Description Value Unit Range Abnormal Flag Note LastModifiedBy Organization Detail LastModifiedTime 09/19/1909/19/2021 LIPID PANEL , STAND LEFTY cholesterol, total 146 mg/dL <200 normal Not Available [facility] [address], [place], [address], 09/19/2021 12:50:09 09/19/19 22 09/19/2021 LIPID PANEL , STAND LEFTY HDL cholesterol 48 mg/dL > or = 50 low Not Available [facility] [address], [place], [address], 09/19/2021 12:50:09 09/19/19 22 09/19/2021 LIPID PANEL , STAND LEFTY triglyceride s 133 mg/dL <150 normal Not Available [facility] [address], [place], [address], 09/19/2021 12:50:09 09/19/19 22 09/19/2021 LIPID PANEL [...] 2068 (http ://ed ucati on.Qu Maryam heather [employer]. com/f aq/FA Q164) Not Available [facility] [address], [place], [address], 09/19/2021 12:50:09 09/19/19 22 09/19/2021 LIPID PANEL , STAND LEFTY chol/HDLC ratio 3.0 (calc ) <5.0 normal Not Available [facility] Project Manager [facility] [address], [place], [address], 09/19/2021 12:50:09 09/19/19 22 09/19/2021 LIPID PANEL , STAND LEFTY non HDL cholesterol 98 mg/dL _(lisseth c) <130 normal For patie nts with diabe jeffery plus 1 major ASCVD risk facto r, treat ing to a non-H DL-C goal of <100 mg/dL (LDL- C of <70 mg/dL ) is consi maritza gonzales n. Not Available [facility] [address], [place], [address], 09/19/2021 12:50:09 09/19/19 22 09/19/2021 ALBUM IN, RANDO M URINE W/CRE ATINI NE creatinine, random urine 160 mg/dL 20-275 normal Not Available [employer] [facility] [address], [place], [address], 09/19/2021 12:50:10 09/19/19 22 09/19/2021 ALBUM IN, RANDO M URINE W/CRE ATINI NE albumin, urine 1.6 mg/dL see note: normal Refer ence Range : Refer ence Range Not estab lishe d Not Available [facility] [address], [place], [address], 09/19/2021 12:50:10 09/19/19 22 09/19/2021 ALBUM IN, [...] categ ory. Not Available [facility] [address], [place], [address], 09/19/2021 12:50:10 09/19/19 22 09/19/2021 COMPR EHENS KEYONNA METAB OLIC PANEL glucose 92 mg/dL 65-99 normal Fasti ng refer ence inter gustavo Not Available [facility] [address], [place], [address], 09/19/2021 12:50:10 09/19/19 22 09/19/2021 COMPR EHENS KEYONNA METAB OLIC PANEL urea nitrogen (BUN) 13 mg/dL 7-25 normal Not Available [facility] [address], [place], [address], 09/19/2021 12:50:10 09/19/19 22 09/19/2021 COMPR EHENS KEYONNA METAB OLIC PANEL creatinine 0.96 mg/dL 0.60-0 .95 high Not Available [facility] [address], [place], [address], 09/19/2021 12:50:10 07/21/09/19/2021 COMPR EHENS KEYONNA METAB [...] or Not Available [facility] [address], [place], [address], 09/19/2021 12:50:10 09/19/19 22 09/19/2021 COMPR EHENS KEYONNA METAB OLIC PANEL BUN/creatini ne ratio 14 (calc ) 6-22 normal Not Available [facility] [address], [place], [address], 09/19/2021 12:50:10 09/19/19 22 09/19/2021 COMPR EHENS KEYONNA METAB OLIC PANEL sodium 141 mmol/ L 135-14 6 normal Not Available [facility] [address], [place], [address], 09/19/2021 12:50:10 09/19/19 22 09/19/2021 COMPR EHENS KEYONNA METAB OLIC PANEL potassium 4.2 mmol/ L 3.5-5. 3 normal Not Available [facility] [address], [place], [address], 09/19/2021 12:50:10 09/19/19 22 09/19/2021 COMPR EHENS KEYONNA METAB OLIC PANEL chloride 104 mmol/ L 98-110 normal Not Available [facility] [address], [place], [address], 09/19/2021 12:50:10 09/19/19 22 09/19/2021 COMPR EHENS KEYONNA METAB OLIC PANEL carbon dioxide 29 mmol/ L 20-32 normal Not Available [facility] [address], [place], [address], 09/19/2021 12:50:10 09/19/19 22 09/19/2021 COMPR EHENS KEYONNA METAB OLIC PANEL calcium 9.1 mg/dL 8.6-10 .4 normal Not Available [facility] [address], [place], [address], 09/19/2021 12:50:10 09/19/19 22 09/19/2021 COMPR EHENS KEYONNA METAB OLIC PANEL protein, total 7.1 g/dL 6.1-8. 1 normal Not Available [facility] [address], [place], [address], 09/19/2021 12:50:10 09/19/19 22 09/19/2021 COMPR EHENS KEYONNA METAB OLIC PANEL albumin 4.1 g/dL 3.6-5. 1 normal Not Available [facility] [address], [place], [address], 09/19/2021 12:50:10 09/19/19 22 09/19/2021 COMPR EHENS KEYONNA METAB OLIC PANEL globulin 3.0 g/dL_ (calc ) 1.9-3. 7 normal Not Available [facility] [address], [place], [address], 09/19/2021 12:50:10 09/19/19 22 09/19/2021 COMPR EHENS KEYONNA METAB OLIC PANEL albumin/glob ulin ratio 1.4 (calc ) 1.0-2. 5 normal Not Available [facility] [address], [place], [address], 09/19/2021 12:50:10 09/19/19 22 09/19/2021 COMPR EHENS KEYONNA METAB OLIC PANEL bilirubin, total 0.4 mg/dL 0.2-1. 2 normal Not Available [facility] [place] [facility] [address], [place], [address], 09/19/2021 12:50:10 09/19/19 22 09/19/2021 COMPR EHENS KEYONNA METAB OLIC PANEL alkaline phosphatase 70 U/L 37-153 normal Not Available [facility] [place] [facility] [address], [place], [address], 09/19/2021 12:50:10 09/19/19 22 09/19/2021 COMPR EHENS KEYONNA METAB OLIC PANEL AST 20 U/L 10-35 normal Not Available [facility] [place] [facility] [address], [place], [address], 09/19/2021 12:50:10 09/19/19 22 09/19/2021 COMPR EHENS KEYONNA METAB OLIC PANEL ALT 13 U/L 6-29 normal Not Available [facility] [place] [facility] [address], [place], [address], 09/19/2021 12:50:10 09/19/19 22 09/19/2021 HEMOG LOBIN [...] 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 Not Available [facility] [address], [place], [address], 09/19/2021 12:50:10 09/19/19 22 09/19/2021 VITAM IN [...] /MS is recom dillon d: order code 08256 (nusrat ents >2yrs ). See Note 1 Note 1 For addit ional infor shanell nevarez refer to http: //lucas Varghese gnost ics.c om/fa q/FAQ 199 (This link is being provi ded for infor lyudmila gomez/ educrobby mccarty l purpo ses only. ) Not Available [facility] [address], [place], [address], 09/19/2021 12:50:11 09/19/19 22 09/19/2021 CBC (INCL UDES DIFF/ PLT) white blood cell count 6.8 thous and/u L 3.8-10 .8 normal Not Available [facility] [address], [place], [address], 09/19/2021 12:50:11 09/19/19 22 09/19/2021 CBC (INCL UDES DIFF/ PLT) red blood cell count 4.14 buffy on/uL 3.80-5 .10 normal Not Available [facility] [address], [place], [address], 09/19/2021 12:50:11 09/19/19 22 09/19/2021 CBC (INCL UDES DIFF/ PLT) hemoglobin 12.8 g/dL 11.7-1 5.5 normal Not Available [facility] [address], [place], [address], 09/19/2021 12:50:11 09/19/19 22 09/19/2021 CBC (INCL UDES DIFF/ PLT) hematocrit 37.8 % 35.0-4 5.0 normal Not Available [facility] [address], [place], [address], 09/19/2021 12:50:11 09/19/19 22 09/19/2021 CBC (INCL UDES DIFF/ PLT) MCV 91.3 fL 80.0-1 00.0 normal Not Available [facility] [address], [place], [address], 09/19/2021 12:50:11 09/19/19 22 09/19/2021 CBC (INCL UDES DIFF/ PLT) MCH 30.9 pg 27.0-3 3.0 normal Not Available [facility] [address], [place], [address], 09/19/2021 12:50:11 09/19/19 22 09/19/2021 CBC (INCL UDES DIFF/ PLT) MCHC 33.9 g/dL 32.0-3 6.0 normal Not Available [facility] [address], [place], [address], 09/19/2021 12:50:11 09/19/19 22 09/19/2021 CBC (INCL UDES DIFF/ PLT) RDW 11.9 % 11.0-1 5.0 normal Not Available [facility] [address], [place], [address], 09/19/2021 12:50:11 09/19/19 22 09/19/2021 CBC (INCL UDES DIFF/ PLT) platelet count 222 thous and/u L 140-40 0 normal Not Available [facility] [address], [place], [address], 09/19/2021 12:50:11 09/19/19 22 09/19/2021 CBC (INCL UDES DIFF/ PLT) MPV 10.2 fL 7.5-12 .5 normal Not Available [facility] [address], [place], [address], 09/19/2021 12:50:11 09/19/19 22 09/19/2021 CBC (INCL UDES DIFF/ PLT) absolute neutrophils 4298 cells /uL 1500-7 800 normal Not Available [facility] [address], [place], [address], 09/19/2021 12:50:11 09/19/19 22 09/19/2021 CBC (INCL UDES DIFF/ PLT) absolute lymphocytes 1788 cells /uL 850-39 00 normal Not Available [facility] [address], [place], [address], 09/19/2021 12:50:11 09/19/19 22 09/19/2021 CBC (INCL UDES DIFF/ PLT) absolute monocytes 442 cells /uL 200-95 0 normal Not Available [facility] [address], [place], [address], 09/19/2021 12:50:11 09/19/19 22 09/19/2021 CBC (INCL UDES DIFF/ PLT) absolute eosinophils 211 cells /uL 15-500 normal Not Available [facility] [address], [place], [address], 09/19/2021 12:50:11 09/19/19 22 09/19/2021 CBC (INCL UDES DIFF/ PLT) absolute basophils 61 cells /uL 0-200 normal Not Available [facility] [address], [place], [address], 09/19/2021 12:50:11 09/19/19 22 09/19/2021 CBC (INCL UDES DIFF/ PLT) neutrophils 63.2 % normal Not Available [facility] [address], [place], [address], 09/19/2021 12:50:11 09/19/19 22 09/19/2021 CBC (INCL UDES DIFF/ PLT) lymphocytes 26.3 % normal Not Available [facility] [address], [place], [address], 09/19/2021 12:50:11 09/19/19 22 09/19/2021 CBC (INCL UDES DIFF/ PLT) monocytes 6.5 % normal Not Available [facility] [address], [place], [address], 09/19/2021 12:50:11 09/19/19 22 09/19/2021 CBC (INCL UDES DIFF/ PLT) eosinophils 3.1 % normal Not Available [facility] [address], [place], [address], 09/19/2021 12:50:11 09/19/19 22 09/19/2021 CBC (INCL UDES DIFF/ PLT) basophils 0.9 % normal Not Available [facility] [address], [place], [address], 09/19/2021 12:50:11 Result Notes None recorded. Problems Name Problem SNOMED Code Status Onset Date Resolution Date Notes Provider Name and Address Organization Details Recorded Time Vitamin D deficiency 15506654 Active 022 FELICITY RESHMA [facility], [place] 08:07:18 Problem Notes None recorded. Medical Equipment [...] SNOMED-CT Code Diagnosis ICD10 Code Diagnosis Note [id number] Ninfa Patel APRN [facility] - [address] [place] [address] 09/18/2021 07:47:16 09/18/2021 08:17:34 Vitamin D deficiency 45510351 E55.9 Hyperlipidemia 57315333 E78.1 Essential hypertension 76153693 I10 Health Concerns Section Related Observation LastModified by Organization Detai ls LastModified Time None Recorded Concern Status LastModified by Organization Details LastModified Time None Recorded Advance Directives Directive None Recorded Payers None recorded. OBGyn Episode No OBEpisode recorded.
--- OUTSIDE RECORDS SUMMARY | 2024-06-20 11:01 | XMS_ITS | Continuity of Care Document ---
Author Organization [facility] Address [facility] [place] [address] Phone Care Team Providers Care Inspector Rag Sorting Name Role Phone Conversion, Integration Unavailable Unavaila ble Allergies, Adverse Reactions, Alerts Substance Reaction Status Criticality FLOLIPID Active No Information Advance Directives Directive Yes / No Effective Date File Name No Information Encounters Encounter Description Practice Location Reason(s) For Visit Diagnoses Date Provider Providers Copied on Encounter [facility] , [address] [place] [address], [id number], tel:[phone] [facility] No Information Apr-0 4-202 5 Conversion Integration . This Is For Integration s, To Convert Old Doctors, Without Adding More Bad Data. [facility] , [address] [place] [address], [id number], tel:[phone] [facility] No Information Arnold-0 1-190 0 Conversion Integration . This Is For Integration s, To Convert Old Doctors, Without Adding More Bad Data. Family History Family Member Type Diagnosis Age At Onset No Information Payers Payer name Insurance type Covered constitution party ID Authoriza titong(s) No Information Social [...]
== END 2024-06-20 10:49 | disposition home or self-care (01) ==
LOC: HO.HMCFM 09:51
PROVIDERS: PCP Nurse Practitioner Family; Visit Provider Nurse Practitioner Family
DX: Z00.00 Encounter for general adult medical examination without abnormal findings (principal); I10 Essential (primary) hypertension; M54.2 Cervicalgia

== ENCOUNTER 2024-06-20 09:51 | Outpatient (REF) | payer MEDICARE, SELFPAY ==
[2024-06-20 11:38] LABS: Appearance Urine Clear; Color Urine Yellow; Glucose Urine UA Negative (Negative); Leukocyte Esterase Urine Trace (Negative); Nitrite Urine Negative (Negative); PH 5.5 (5.0-9.0); UMIC TRIGGER UACC YES; Urine Blood Negative (Negative); Urine Ketones Negative (Negative); Urine Protein Negative (Neg-Trace)
[2024-06-20 11:43] LABS: Bacteria Urine None Seen (None Seen); Hyaline Casts Urine 0-2 /LPF (0-2); RBC Urine 0-2 /HPF (0-2); Squamous Epithelial Cell Urine 0-2 /HPF (0-2); WBC Urine 0-5 /HPF (0-5)
[2024-06-20 12:30] LABS: Creatinine Urine 66.57 mg/dL; Microalbumin Urine < 5.0 mg/L
--- OUTSIDE RECORDS SUMMARY | 2024-06-20 13:37 | XMS_ITS | Data Portability ---
Author Organization [facility] Earle - HALIMA [facility] Address [address] [place] [address] Care Team Providers Care Irrigator Gravity Flow Name Role Phone OLENA MORENO Referring Provider OLENA MORENO Primary Care Provider Assessment No assessment recorded. Plan of Treatment Reminders Order Date Submit Date Provider Last Modified By Organization Details Last Modified Time Details Appointments None recorded. Lab None recorded. Referral None recorded. Procedures None recorded. Surgeries None recorded. Imaging CT, chest, w/o contrast - STAT CT CHEST W/O CONTRAST 2019 020 ASHELY Not available 0 17:09:26 Medication Orders None [...] By: LUCIA Carroll ed Date: 2019 17:06 [email or web address] [facility] [address] [place], [address], 08/28/2019 11:41:56 Result Notes None recorded. Procedures Surgical History None recorded. Imaging Results Imaging Date Name Status LastModified by Organiz ation Details LastModified Time 04/18/2018 CT, chest, w/o contrast completed [email or web address] Information not available 08/21/2019 15:33:54 08/21/2019 CT, chest, w/o contrast completed [id number] [facility] [address] [place], [address], 08/28/2019 11:41:56 Procedure Notes None recorded. Medical [...] Updated DateTime 0 157.48 cm 27.4 kg/m2 89675.8 6 g 89 /min 95 % 95 % 110 mm[Hg] 70 mm[Hg] Gabriela Leger [facility] 0 15:14:58 Social History Question Answer Notes LastModified by Organizat ion Details LastModified Time Tobacco Smoking Status [facility]2019 15:16:20 Are You Blind Or [...] Influenza, split virus, quadrivalent, preservative 9 [place] [facility] [place] 08/21/2019 15:15:58 Past Encounters Encounter ID Performer Location Encounter Start Date Encounter Closed Date Diagnosis/Indication Diagnosis SNOMED-CT Code Diagnosis ICD10 Code Diagnosis Note [id number] Carmen Canas MD [id number] [address] [facility] [address] [place] [address] 08/21/2019 14:47:09 08/21/2019 15:34:23 Solitary nodule of lung 080460271 R91.1 Patient had a 1.6 cm opacity probably was atelectasi s or scar tissue. I doubt this was cancer.How ever we need a chest CT scan as soon as possible. 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 [...] Kelly Member ID Guarantor Name 08/21/2019 1 [facility] (MEDICARE REPLACEMENT/A DVANTAGE - O) [id number] Kaylah Banerjee [id number] Kaylah Banerjee Notes Date Note Type Note [...] disease and stroke. Carmen Canas MD [address] [facility],[address], [place], [address], [facility] [place] [facility] [place] 08/21/2019 19:50:29 OBGyn Episode No OBEpisode recorded.
--- OUTSIDE RECORDS SUMMARY | 2024-06-20 13:37 | XMS_ITS | Patient Health Record ---
Author Organization [facility] Cheryl mayberry Billing Info Address [address] [place] [address] [place] [address] Support Name Relationship Address Phone Kaylah Banerjee Guarantor Unknown [phone] Allergies Allergen (clinical drug ingredient) Drug/Non Drug [...] Route Administration Date Status Comme nts PNEUMOCOCCAL - 23 POLY (PNEUMOVAX 23) 0 04/17/2014 Pending PNEUMOCOCCAL (Past vaccine of unknown type) Unknown 03/21/2012 Administered TDAP (BOOSTRIX) 0 04/17/2014 Pending TDAP (BOOSTRIX) IM Intramuscular 06/12/2014 Administered zINFLUENZA TRI-NADIR (FLUZONE), 3 YRS +, NO PRES - ALL PAYORS 0 11/14/2013 Pending zFLU 4V (FLUARIX QUAD), 6 MO+, NO PRES - ALL PAYORS IM Intramuscular 12/05/2014 Administered Problems Problem Type SNOMED Code ICD Code Onset Dates Problem Status W/U Status Risk Notes Problem 06877905 Pure hypercholesterolemia (E78.0) Active confirmed Problem 36715003 Essential (prima ry) hypertension (I10) Active confirmed Problem 523761901 Cataract (366.9) Active confirmed Problem 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
== END 2024-06-20 09:52 | disposition home or self-care (01) ==
LOC: HO.LNP 09:51
PROVIDERS: PCP Nurse Practitioner Family; Visit Provider Nurse Practitioner Family
DX: Z00.01 Encounter for general adult medical examination with abnormal findings (principal); M54.2 Cervicalgia; I10 Essential (primary) hypertension; E78.5 Hyperlipidemia, unspecified; M85.80 Other specified disorders of bone density and structure, unspecified site
CPT/HCPCS: 81001; 82043; 82570; 96127; 99212; 99397

== ENCOUNTER 2024-08-28 10:19 | Outpatient (REF) | payer MEDICARE, SELFPAY ==
--- OUTSIDE RECORDS SUMMARY | 2024-08-28 10:59 | XMS_ITS | Data Portability ---
Author Organization [place] [facility] Address [address] [place] [address] Assessment No assessment recorded. Plan of Treatment Reminders Order Date Submit Date Provider Last Modified By Organization Details Last Modified Time Details Appointments None recorded. Lab vitamin D, 25-hydrox y, total, serum 022 [facility], [address], [place], [address], 2 12:50:11 CMP, serum or plasma [facility], [address], [address], [place], [address], 2 12:50:10 CBC w/ auto diff [facility], [address], [place], [address], 2 12:50:12 HbA1c (hemoglob in A1c), blood 022 [facility], [address], [place], [address], 2 12:50:11 microalbu min/creat inine, ratio panel, urine [facility], [address], [address], [place], [address], 11:39:16 lipid panel, serum 022 022 ASHLEY [facility], [address], [address], [place], [address], 2 12:50:09 Referral None recorded. Procedures None recorded. Surgeries None recorded. Imaging None recorded. Medication Orders None recorded. Patient TargetsNo targets recorded. Patient InstructionsNo instructions recorded. Reason for Referral None Reported. Results Created Date Observation Date Name Description Value Unit Range Abnormal Flag Note LastModifiedBy Organization Detail LastModifiedTime 09/19/19 22 09/19/2021 LIPID PANEL , STAND LEFTY cholesterol, total 146 mg/dL <200 normal Not Available [facility] [address] [place], [address], 09/19/2021 12:50:09 09/19/19 22 09/19/2021 LIPID PANEL , STAND LEFTY HDL cholesterol 48 mg/dL > or = 50 low Not Available [facility] [place] [facility] [address], [place], [address], 09/19/2021 12:50:09 09/19/19 22 09/19/2021 LIPID PANEL , STAND LEFTY triglyceride s 133 mg/dL <150 normal Not Available [facility] [address] [place], [address], 09/19/2021 12:50:09 09/19/19 22 09/19/2021 LIPID PANEL [...] calcu lated using the Ana n-Hop kins abe fuentes, which is a valid ated novel sammy bagleyte r accur acy than the Fried jeff equat ion in the estim ation of LDL-C . Ana n SS et al. URSULA. 2013; 310(1 9): 2061- 2068 (http ://ed ucati on.Qu Maryam abelActivaided Orthoticss. com/f aq/FA Q164) Not Available [facility] [address], [place], [address], 09/19/2021 12:50:09 09/19/19 22 09/19/2021 LIPID PANEL , STAND LEFTY chol/HDLC ratio 3.0 (calc ) <5.0 normal Not Available [facility] [address], [place], [address], 09/19/2021 12:50:09 09/19/19 22 09/19/2021 LIPID PANEL , STAND LEFTY non HDL cholesterol 98 mg/dL _(lisseth c) <130 normal For patie nts with diabe jeffery plus 1 major ASCVD risk facto r, treat ing to a non-H DL-C goal of <100 mg/dL (LDL- C of <70 mg/dL ) is brynn fuentes. Not Available [facility] [address], [place], [address], 09/19/2021 12:50:09 09/19/19 22 09/19/2021 ALBUM IN, RANDO M URINE W/CRE ATINI NE creatinine, random urine 160 mg/dL 20-275 normal Not Available [facility] [place] [facility] [address], [place], [address], 09/19/2021 12:50:10 09/19/19 22 09/19/2021 ALBUM IN, RANDO M URINE W/CRE ATINI NE albumin, urine 1.6 mg/dL see note: normal Refer ence Range : Refer ence Range Not estab lishe d Not Available [facility] [address], [place], [address], 09/19/2021 12:50:10 09/19/19 22 09/19/2021 ALBUM IN, [...] categ ory. Not Available [facility] [place] [facility] [address], [place], [address], 09/19/2021 12:50:10 09/19/19 22 09/19/2021 COMPR EHENS KEYONNA METAB OLIC PANEL glucose 92 mg/dL 65-99 normal Fasti ng refer ence inter gustavo Not Available [facility] [place] [facility] [address], [place], [address], 09/19/2021 12:50:10 09/19/19 22 09/19/2021 COMPR EHENS KEYONNA METAB OLIC PANEL urea nitrogen (BUN) 13 mg/dL 7-25 normal Not Available [facility] [place] [facility] [address], [place], [address], 09/19/2021 12:50:10 09/19/19 22 09/19/2021 COMPR EHENS KEYONNA METAB OLIC PANEL creatinine 0.96 mg/dL 0.60-0 .95 high Not Available [facility] [address], [place], [address], 09/19/2021 12:50:10 09/19/19 22 09/19/2021 COMPR EHENS KEYONNA METAB OLIC PANEL eGFR 58 mL/mi n/1.7 3m2 > or = 60 low The eGFR is based on the CKD-E PI 2020 equat ion. To calcu late the new eGFR from a previ ous Creat inine or Cysta tin C resul t, go to https ://dada w.kid kina.o melyssa/pr ofess ional s/ kdoqi /gfr% 5Fcal culat or Not Available [facility] [place] [facility] [address], [place], [address], 09/19/2021 12:50:10 09/19/19 22 09/19/2021 COMPR EHENS KEYONNA METAB OLIC PANEL BUN/creatini ne ratio 14 (calc ) 6-22 normal Not Available [facility] [place] [facility] [address], [place], [address], 09/19/2021 12:50:10 09/19/19 22 09/19/2021 COMPR EHENS KEYONNA METAB OLIC PANEL sodium 141 mmol/ L 135-14 6 normal Not Available [facility] [place] [facility] [address], [place], [address], 09/19/2021 12:50:10 09/19/19 22 09/19/2021 COMPR EHENS KEYONNA METAB OLIC PANEL potassium 4.2 mmol/ L 3.5-5. 3 normal Not Available [facility] [place] [facility] [address], [place], [address], 09/19/2021 12:50:10 09/19/19 22 09/19/2021 COMPR EHENS KEYONNA METAB OLIC PANEL chloride 104 mmol/ L 98-110 normal Not Available [facility] [place] [facility] [address], [place], [address], 09/19/2021 12:50:10 09/19/19 22 09/19/2021 COMPR EHENS KEYONNA METAB OLIC PANEL carbon dioxide 29 mmol/ L 20-32 normal Not Available [facility] [place] [facility] [address], [place], [address], 09/19/2021 12:50:10 09/19/19 22 09/19/2021 COMPR EHENS KEYONNA METAB OLIC PANEL calcium 9.1 mg/dL 8.6-10 .4 normal Not Available [facility] [place] [facility] [address], [place], [address], 09/19/2021 12:50:10 09/19/19 22 09/19/2021 COMPR EHENS KEYONNA METAB OLIC PANEL protein, total 7.1 g/dL 6.1-8. 1 normal Not Available [facility] [address], [place], [address], 09/19/2021 12:50:10 09/19/19 22 09/19/2021 COMPR EHENS KEYONNA METAB OLIC PANEL albumin 4.1 g/dL 3.6-5. 1 normal Not Available [facility] [address], [place], [address], 09/19/2021 12:50:10 09/19/19 22 09/19/2021 COMPR EHENS KEYONNA METAB OLIC PANEL globulin 3.0 g/dL_ (calc ) 1.9-3. 7 normal Not Available [facility] [place] [facility] [address], [place], [address], 09/19/2021 12:50:10 09/19/19 22 09/19/2021 COMPR EHENS KEYONNA METAB OLIC PANEL albumin/glob ulin ratio 1.4 (calc ) 1.0-2. 5 normal Not Available [facility] [address], [place], [address], 09/19/2021 12:50:10 09/19/19 22 09/19/2021 COMPR EHENS KEYONNA METAB OLIC PANEL bilirubin, total 0.4 mg/dL 0.2-1. 2 normal Not Available [facility] [place] [facility] [address], [place], [address], 09/19/2021 12:50:10 09/19/19 22 09/19/2021 COMPR EHENS KEYONNA METAB OLIC PANEL alkaline phosphatase 70 U/L 37-153 normal Not Available [facility] [place] [facility] [address], [place], [address], 09/19/2021 12:50:10 09/19/19 22 09/19/2021 COMPR EHENS KEYONNA METAB OLIC PANEL AST 20 U/L 10-35 normal Not Available [facility] [place] [facility] [address], [place], [address], 09/19/2021 12:50:10 09/19/19 22 09/19/2021 COMPR EHENS KEYONNA METAB OLIC PANEL ALT 13 U/L 6-29 normal Not Available [facility] [place] [facility] [address], [place], [address], 09/19/2021 12:50:10 09/19/19 22 09/19/2021 HEMOG LOBIN A1C hemoglobin A1C 5.5 %_of_ total _HGB <5.7 normal For the purpo se of screwillem jeannie for the prese nce of diabe jeffery: <5.7% Consi stent with the absen ce of diabe jeffery 5.7-6 .4% Consi stent with incre ased risk for diabe jeffery (pred iabet es) > or =6.5% Consi stent with diabe jeffery This assay resul t is consi stent with a decre ased risk of diabe jeffery. Curre ntly, no conse nsus exist valentina cooper use of hemog lobin A1c for [...] 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 Not Available [facility] [place] [facility] [address], [place], [address], 09/19/2021 12:50:10 09/19/19 22 09/19/2021 VITAM IN [...] /MS is recom dillon d: order code 10558 (nusrat ents >2yrs ). See Note 1 Note 1 For addit ional infor shanell nevarez refer to http: //lucas Rushing stDia gnost ics.c om/fa q/FAQ 199 (This link is being provi ded for infor lyudmila gomez/ educrobby estes purpo ses only. ) Not Available [facility] [place] [facility] [address], [place], [address], 09/19/2021 12:50:11 09/19/19 22 09/19/2021 CBC (INCL UDES DIFF/ PLT) white blood cell count 6.8 thous and/u L 3.8-10 .8 normal Not Available [facility] [place] [facility] [address], [place], [address], 09/19/2021 12:50:11 09/19/19 22 09/19/2021 CBC (INCL UDES DIFF/ PLT) red blood cell count 4.14 buffy on/uL 3.80-5 .10 normal Not Available [facility] [address], [place], [address], 09/19/2021 12:50:11 09/19/19 22 09/19/2021 CBC (INCL UDES DIFF/ PLT) hemoglobin 12.8 g/dL 11.7-1 5.5 normal Not Available [facility] [address], [place], [address], 09/19/2021 12:50:11 09/19/19 22 09/19/2021 CBC (INCL UDES DIFF/ PLT) hematocrit 37.8 % 35.0-4 5.0 normal Not Available [facility] [address], [place], [address], 09/19/2021 12:50:11 09/19/19 22 09/19/2021 CBC (INCL UDES DIFF/ PLT) MCV 91.3 fL 80.0-1 00.0 normal Not Available [facility] [address], [place], [address], 09/19/2021 12:50:11 09/19/19 22 09/19/2021 CBC (INCL UDES DIFF/ PLT) MCH 30.9 pg 27.0-3 3.0 normal Not Available [facility] [address], [place], [address], 09/19/2021 12:50:11 09/19/19 22 09/19/2021 CBC (INCL UDES DIFF/ PLT) MCHC 33.9 g/dL 32.0-3 6.0 normal Not Available [facility] [address], [place], [address], 09/19/2021 12:50:11 09/19/19 22 09/19/2021 CBC (INCL UDES DIFF/ PLT) RDW 11.9 % 11.0-1 5.0 normal Not Available [facility] [address], [place], [address], 09/19/2021 12:50:11 09/19/19 22 09/19/2021 CBC (INCL UDES DIFF/ PLT) platelet count 222 thous and/u L 140-40 0 normal Not Available [facility] [address], [place], [address], 09/19/2021 12:50:11 09/19/19 22 09/19/2021 CBC (INCL UDES DIFF/ PLT) MPV 10.2 fL 7.5-12 .5 normal Not Available [facility] [address], [place], [address], 09/19/2021 12:50:11 09/19/19 22 09/19/2021 CBC (INCL UDES DIFF/ PLT) absolute neutrophils 4298 cells /uL 1500-7 800 normal Not Available [facility] [address], [place], [address], 09/19/2021 12:50:11 09/19/19 22 09/19/2021 CBC (INCL UDES DIFF/ PLT) absolute lymphocytes 1788 cells /uL 850-39 00 normal Not Available [facility] [address], [place], [address], 09/19/2021 12:50:11 09/19/19 22 09/19/2021 CBC (INCL UDES DIFF/ PLT) absolute monocytes 442 cells /uL 200-95 0 normal Not Available [facility] [address], [place], [address], 09/19/2021 12:50:11 09/19/19 22 09/19/2021 CBC (INCL UDES DIFF/ PLT) absolute eosinophils 211 cells /uL 15-500 normal Not Available [facility] [address], [place], [address], 09/19/2021 12:50:11 09/19/19 22 09/19/2021 CBC (INCL UDES DIFF/ PLT) absolute basophils 61 cells /uL 0-200 normal Not Available [facility] [place] [facility] [address], [place], [address], 09/19/2021 12:50:11 09/19/19 22 09/19/2021 CBC (INCL UDES DIFF/ PLT) neutrophils 63.2 % normal Not Available [facility] [place] [facility] [address], [place], [address], 09/19/2021 12:50:11 09/19/19 22 09/19/2021 CBC (INCL UDES DIFF/ PLT) lymphocytes 26.3 % normal Not Available [facility] [place] [facility] [address], [place], [address], 09/19/2021 12:50:11 09/19/19 22 09/19/2021 CBC (INCL UDES DIFF/ PLT) monocytes 6.5 % normal Not Available [facility] [place] [facility] [address], [place], [address], 09/19/2021 12:50:11 09/19/19 22 09/19/2021 CBC (INCL UDES DIFF/ PLT) eosinophils 3.1 % normal Not Available [facility] [place] [facility] [address], [place], [address], 09/19/2021 12:50:11 09/19/19 22 09/19/2021 CBC (INCL UDES DIFF/ PLT) basophils 0.9 % normal Not Available [facility] [place] [facility] [address], [place], [address], 09/19/2021 12:50:11 Result Notes None recorded. Problems Name Problem SNOMED Code Status Onset Date Resolution Date Notes Provider Name and Address Organization Details Recorded Time Vitamin D deficiency 75466186 Active 022 FELICITY BOWMAN zay[place], [place] [facility] [place] 08:07:18 Problem Notes None recorded. Medical Equipment [...] SNOMED-CT Code Diagnosis ICD10 Code Diagnosis Note [id number] Ninfa Patel APRN [address] [place] [address] 09/18/2021 07:47:16 09/18/2021 08:17:34 Vitamin D deficiency 59727317 E55.9 Hyperlipidemia 56750785 E78.1 Essential hypertension 80609006 I10 Health Concerns Section Related Observation LastModified by Organization Detai ls LastModified Time None Recorded Concern Status LastModified by Organization Details LastModified Time None Recorded Advance Directives Directive None Recorded Payers Insurance Date Sequence Insurance Name Policy Number Policy Kelly Covered Member ID Kelly Member ID Guarantor Name 06/28/2024 1 [employer] (MEDICARE REPLACEMENT/A DVANTAGE - PPO) [id number] Kaylah Banerjee [id number] Kaylah Banerjee OBGyn Episode No OBEpisode recorded.
== END 2024-08-28 10:20 | disposition home or self-care (01) ==
LOC: HO.MAMMO 10:19
PROVIDERS: PCP Nurse Practitioner Family; Visit Provider Nurse Practitioner Family
DX: Z12.31 Encounter for screening mammogram for malignant neoplasm of breast (principal)
CPT/HCPCS: 77063; 77067

== ENCOUNTER → 2024-08-28 10:45 | Outpatient (BNV) | payer MEDICARE, SELFPAY | PROVIDERS: PCP Nurse Practitioner Family; Visit Provider Internal Medicine | DX: Z12.31 Encounter for screening mammogram for malignant neoplasm of breast (principal) | CPT/HCPCS: 77063; 77067 ==

== ENCOUNTER 2024-09-19 07:58 | Outpatient (REF) | payer MEDICARE, SELFPAY ==
--- OUTSIDE RECORDS SUMMARY | 2024-06-01 20:00 | XMS_ITS | Continuity of Care Document ---
Author Organization [facility] Address [facility] [place] [address] Phone Care Team Providers Care Uke Operator Name Role Phone Conversion, Integration Unavailable Unavaila ble Allergies, Adverse Reactions, Alerts Substance Reaction Status Criticality simvastatin Active No Information Advance Directives Directive Yes / No Effective Date File Name No Information Encounters Encounter Description Practice Location Reason(s) For Visit Diagnoses Date Provider Providers Copied on Encounter [facility] , [address] [place] [address], [id number], tel:[phone] [facility] No Information Apr-0 4-202 5 Conversion Integration . This Is For Integration s, To Convert Old Doctors, Without Adding More Bad Data. [facility] , [address] [place] [address], [id number], tel:[phone] [facility] No Information Arnold-0 1-190 0 Conversion Integration . This Is For Integration s, To Convert Old Doctors, Without Adding More Bad Data. Family History Family Member Type Diagnosis Age At Onset No Information Payers Payer name Insurance type Covered green party ID Authoriza tion(s) No Information Social History Type Description Quantity [...]
--- OUTSIDE RECORDS SUMMARY | 2024-09-19 08:01 | XMS_ITS | Data Portability ---
Author Organization [place] [facility], [facility] Address [address] [place] [address] Assessment No assessment recorded. Plan of Treatment Reminders Order Date Submit Date Provider Last Modified By Organization Details Last Modified Time Details Appointments None recorded. Lab vitamin D, 25-hydrox y, total, serum 022 [facility], [address], [place], [address], 2 12:50:11 CMP, serum or plasma [facility], [address], [address], [place], [address], 2 12:50:10 CBC w/ auto diff [facility], [address], [place], [address], 2 12:50:12 HbA1c (hemoglob in A1c), blood 022 [facility], [address], [address], [place], [address], 2 12:50:11 microalbu min/creat inine, ratio panel, urine [id number] [facility], [address], [address], [place], [address], 11:39:16 lipid panel, serum 022 022 ASHLEY [facility], [address], [address], [place], [address], 2 12:50:09 Referral None recorded. Procedures None [...] total 146 mg/dL <200 normal Not Available [facility] [address] [place], [address], 09/19/2021 12:50:09 09/19/19 22 09/19/2021 LIPID PANEL , STAND LEFTY HDL cholesterol 48 mg/dL > or = 50 low Not Available [facility] [place] [facility] [address], [place], [address], 09/19/2021 12:50:09 09/19/19 22 09/19/2021 LIPID PANEL , STAND LEFTY triglyceride s 133 mg/dL <150 normal Not Available [facility] [address] [place], [address], 09/19/2021 12:50:09 09/19/19 22 09/19/2021 LIPID PANEL [...] 2061- 2068 (http ://ed ucati on.Qu Maryam abelDropost.its. com/f aq/FA Q164) Not Available [facility] [address], [place], [address], 09/19/2021 12:50:09 09/19/19 22 09/19/2021 LIPID PANEL , STAND LEFTY chol/HDLC ratio 3.0 (calc ) <5.0 normal Not Available [facility] [address], [place], [address], 09/19/2021 12:50:09 09/19/19 22 09/19/2021 LIPID PANEL , STAND LEFTY non HDL cholesterol 98 mg/dL _(lisseth c) <130 normal For patie nts with diabe jeffery plus 1 major ASCVD risk facto r, treat ing to a non-H DL-C goal of <100 mg/dL (LDL- C of <70 mg/dL ) is brynn fuentes. Not Available [facility] [address], [place], [address], 09/19/2021 12:50:09 09/19/19 22 09/19/2021 ALBUM IN, RANDO M URINE W/CRE ATINI NE creatinine, random urine 160 mg/dL 20-275 normal Not Available [facility] [place] [facility] [address], [place], [address], 09/19/2021 12:50:10 09/19/19 22 09/19/2021 ALBUM IN, RANDO M URINE W/CRE ATINI NE albumin, urine 1.6 mg/dL see note: normal Refer ence Range : Refer ence Range Not estab lishe d Not Available [facility] [address], [place], [address], 09/19/2021 12:50:10 09/19/19 22 09/19/2021 ALBUM IN, [...] categ ory. Not Available [facility] [place] [facility] [address], [place], [address], 09/19/2021 12:50:10 09/19/19 22 09/19/2021 COMPR EHENS KEYONNA METAB OLIC PANEL glucose 92 mg/dL 65-99 normal Fasti ng refer ence inter gustavo Not Available [facility] [place] [facility] [address], [place], [address], 09/19/2021 12:50:10 09/19/19 22 09/19/2021 COMPR EHENS KEYONNA METAB OLIC PANEL urea nitrogen (BUN) 13 mg/dL 7-25 normal Not Available [facility] [place] [facility] [address], [place], [address], 09/19/2021 12:50:10 09/19/19 22 09/19/2021 COMPR EHENS KEYONNA METAB OLIC PANEL creatinine 0.96 mg/dL 0.60-0 .95 high Not Available [facility] [address], [place], [address], 09/19/2021 12:50:10 09/19/19 22 09/19/2021 COMPR EHENS [...] culat or Not Available [facility] [place] [facility] [address], [place], [address], 09/19/2021 12:50:10 09/19/19 22 09/19/2021 COMPR EHENS KEYONNA METAB OLIC PANEL BUN/creatini ne ratio 14 (calc ) 6-22 normal Not Available [facility] [place] [facility] [address], [place], [address], 09/19/2021 12:50:10 09/19/19 22 09/19/2021 COMPR EHENS KEYONNA METAB OLIC PANEL sodium 141 mmol/ L 135-14 6 normal Not Available [facility] [place] [facility] [address], [place], [address], 09/19/2021 12:50:10 09/19/19 22 09/19/2021 COMPR EHENS KEYONNA METAB OLIC PANEL potassium 4.2 mmol/ L 3.5-5. 3 normal Not Available [facility] [place] [facility] [address], [place], [address], 09/19/2021 12:50:10 09/19/19 22 09/19/2021 COMPR EHENS KEYONNA METAB OLIC PANEL chloride 104 mmol/ L 98-110 normal Not Available [facility] [place] [facility] [address], [place], [address], 09/19/2021 12:50:10 09/19/19 22 09/19/2021 COMPR EHENS KEYONNA METAB OLIC PANEL carbon dioxide 29 mmol/ L 20-32 normal Not Available [facility] [place] [facility] [address], [place], [address], 09/19/2021 12:50:10 09/19/19 22 09/19/2021 COMPR EHENS KEYONNA METAB OLIC PANEL calcium 9.1 mg/dL 8.6-10 .4 normal Not Available [facility] [place] [facility] [address], [place], [address], 09/19/2021 12:50:10 09/19/19 22 09/19/2021 COMPR EHENS KEYONNA METAB OLIC PANEL protein, total 7.1 g/dL 6.1-8. 1 normal Not Available [facility] [address], [place], [address], 09/19/2021 12:50:10 09/19/19 22 09/19/2021 COMPR EHENS KEYONNA METAB OLIC PANEL albumin 4.1 g/dL 3.6-5. 1 normal Not Available [facility] [address], [place], [address], 09/19/2021 12:50:10 09/19/19 22 09/19/2021 COMPR EHENS KEYONNA METAB OLIC PANEL globulin 3.0 g/dL_ (calc ) 1.9-3. 7 normal Not Available [facility] [place] [facility] [address], [place], [address], 09/19/2021 12:50:10 09/19/19 22 09/19/2021 COMPR EHENS KEYONNA METAB OLIC PANEL albumin/glob ulin ratio 1.4 (calc ) 1.0-2. 5 normal Not Available [facility] [address], [place], [address], 09/19/2021 12:50:10 09/19/19 22 09/19/2021 COMPR EHENS KEYONNA METAB OLIC PANEL bilirubin, total 0.4 mg/dL 0.2-1. 2 normal Not Available [facility] [place] [facility] [address], [place], [address], 09/19/2021 12:50:10 09/19/19 22 09/19/2021 COMPR EHENS KEYONNA METAB OLIC PANEL alkaline phosphatase 70 U/L 37-153 normal Not Available [facility] [place] [facility] [address], [place], [address], 09/19/2021 12:50:10 09/19/19 22 09/19/2021 COMPR EHENS KEYONNA METAB OLIC PANEL AST 20 U/L 10-35 normal Not Available [facility] [place] [facility] [address], [place], [address], 09/19/2021 12:50:10 09/19/19 22 09/19/2021 COMPR EHENS KEYONNA METAB OLIC PANEL ALT 13 U/L 6-29 normal Not Available [facility] [place] [facility] [address], [place], [address], 09/19/2021 12:50:10 09/19/19 22 09/19/2021 HEMOG LOBIN [...] 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 Not Available [facility] [place] [facility] [address], [place], [address], 09/19/2021 12:50:10 09/19/19 22 09/19/2021 VITAM IN [...] /MS is recom dillon d: order code [id number] (nusrat ents >2yrs ). See Note 1 Note 1 For addit ional infor shanell nevarez refer to http: //lucas Rushing stDia gnost ics.c om/fa q/FAQ 199 (This link is being provi ded for infor lyudmila gomez/ educrobby estes purpo ses only. ) Not Available [facility] [place] [facility] [address], [place], [address], 09/19/2021 12:50:11 09/19/19 22 09/19/2021 CBC (INCL UDES DIFF/ PLT) white blood cell count 6.8 thous and/u L 3.8-10 .8 normal Not Available [facility] [place] [facility] [address], [place], [address], 09/19/2021 12:50:11 09/19/19 22 09/19/2021 CBC (INCL UDES DIFF/ PLT) red blood cell count 4.14 buffy on/uL 3.80-5 .10 normal Not Available [facility] [address], [place], [address], 09/19/2021 12:50:11 09/19/19 22 09/19/2021 CBC (INCL UDES DIFF/ PLT) hemoglobin 12.8 g/dL 11.7-1 5.5 normal Not Available [facility] [address], [place], [address], 09/19/2021 12:50:11 09/19/19 22 09/19/2021 CBC (INCL UDES DIFF/ PLT) hematocrit 37.8 % 35.0-4 5.0 normal Not Available [facility] [address], [place], [address], 09/19/2021 12:50:11 09/19/19 22 09/19/2021 CBC (INCL UDES DIFF/ PLT) MCV 91.3 fL 80.0-1 00.0 normal Not Available [facility] [address], [place], [address], 09/19/2021 12:50:11 09/19/19 22 09/19/2021 CBC (INCL UDES DIFF/ PLT) MCH 30.9 pg 27.0-3 3.0 normal Not Available [facility] [address], [facility], [address], 09/19/2021 12:50:11 09/19/19 22 09/19/2021 CBC (INCL UDES DIFF/ PLT) MCHC 33.9 g/dL 32.0-3 6.0 normal Not Available [facility] [address], [place], [address], 09/19/2021 12:50:11 09/19/19 22 09/19/2021 CBC (INCL UDES DIFF/ PLT) RDW 11.9 % 11.0-1 5.0 normal Not Available [facility] [address], [place], [address], 09/19/2021 12:50:11 09/19/19 22 09/19/2021 CBC (INCL UDES DIFF/ PLT) platelet count 222 thous and/u L 140-40 0 normal Not Available [facility] [address], [place], [address], 09/19/2021 12:50:11 09/19/19 22 09/19/2021 CBC (INCL UDES DIFF/ PLT) MPV 10.2 fL 7.5-12 .5 normal Not Available [facility] [address], [place], [address], 09/19/2021 12:50:11 09/19/19 22 09/19/2021 CBC (INCL UDES DIFF/ PLT) absolute neutrophils 4298 cells /uL 1500-7 800 normal Not Available [facility] [address], [place], [address], 09/19/2021 12:50:11 09/19/19 22 09/19/2021 CBC (INCL UDES DIFF/ PLT) absolute lymphocytes 1788 cells /uL 850-39 00 normal Not Available [facility] [address], [place], [address], 09/19/2021 12:50:11 09/19/19 22 09/19/2021 CBC (INCL UDES DIFF/ PLT) absolute monocytes 442 cells /uL 200-95 0 normal Not Available [facility] [address], [place], [address], 09/19/2021 12:50:11 09/19/19 22 09/19/2021 CBC (INCL UDES DIFF/ PLT) absolute eosinophils 211 cells /uL 15-500 normal Not Available [facility] [address], [place], [address], 09/19/2021 12:50:11 09/19/19 22 09/19/2021 CBC (INCL UDES DIFF/ PLT) absolute basophils 61 cells /uL 0-200 normal Not Available [facility] [place] [facility] [address], [place], [address], 09/19/2021 12:50:11 09/19/19 22 09/19/2021 CBC (INCL UDES DIFF/ PLT) neutrophils 63.2 % normal Not Available [facility] [place] [facility] [address], [place], [address], 09/19/2021 12:50:11 09/19/19 22 09/19/2021 CBC (INCL UDES DIFF/ PLT) lymphocytes 26.3 % normal Not Available [facility] [place] [facility] [address], [place], [address], 09/19/2021 12:50:11 09/19/19 22 09/19/2021 CBC (INCL UDES DIFF/ PLT) monocytes 6.5 % normal Not Available [facility] [place] [facility] [address], [place], [address], 09/19/2021 12:50:11 09/19/19 22 09/19/2021 CBC (INCL UDES DIFF/ PLT) eosinophils 3.1 % normal Not Available [facility] [place] [facility] [address], [place], [address], 09/19/2021 12:50:11 09/19/19 22 09/19/2021 CBC (INCL UDES DIFF/ PLT) basophils 0.9 % normal Not Available [facility] [place] [facility] [address], [place], [address], 09/19/2021 12:50:11 Result Notes None recorded. Problems Name Problem SNOMED Code Status Onset Date Resolution Date Notes Provider Name and Address Organization Details Recorded Time Vitamin D deficiency 46640730 Active 022 FELICITY BOWMAN zayra, [place] - [facility], [place] 08:07:18 Problem Notes None recorded. Medical Equipment [...] SNOMED-CT Code Diagnosis ICD10 Code Diagnosis Note [id number] Ninfa Patel APRN [address] [place] [address] 09/18/2021 07:47:16 09/18/2021 08:17:34 Vitamin D deficiency 18507119 E55.9 Hyperlipidemia 36395281 E78.1 Essential hypertension 29690346 I10 Health Concerns Section Related Observation LastModified by Organization Detai ls LastModified Time None Recorded Concern Status LastModified by Organization Details LastModified Time None Recorded Advance Directives Directive None Recorded Payers Insurance Date Sequence Insurance Name Policy Number Policy Kelly Covered Member ID Kelly Member ID Guarantor Name 06/28/2024 1 [facility] (MEDICARE REPLACEMENT/A DVANTAGE - PPO) [id number] Kaylah Banerjee [id number] Kaylah Banerjee OBGyn Episode No OBEpisode recorded.
--- OUTSIDE RECORDS SUMMARY | 2024-09-19 08:01 | XMS_ITS | Patient Health Record ---
Author Organization [facility] Cheryl [facility]berry Billing Info Address [address] [place] [address] [place] [address] Support Name Relationship Address Phone Kaylah Banerjee Guarantor Unknown [phone] Allergies Allergen (clinical drug ingredient) Drug/Non Drug [...] vaccine of unknown type) Unknown 03/21/2012 Administered PNEUMOCOCCAL - 23 POLY (PNEUMOVAX 23) 0 04/17/2014 Pending TDAP (BOOSTRIX) 0 04/17/2014 Pending TDAP (BOOSTRIX) IM Intramuscular 06/12/2014 Administered zFLU 4V (FLUARIX QUAD), 6 MO+, NO PRES - ALL PAYORS IM Intramuscular 12/05/2014 Administered zINFLUENZA TRI-NADIR (FLUZONE), 3 YRS +, NO PRES - ALL PAYORS 0 11/14/2013 Pending Problems Problem Type SNOMED Code ICD Code Onset Dates Problem Status W/U Status Risk Notes Problem 2444753 Essential hypert ension, benign (I10) Active confirmed Problem 74788394 Pure hypercholesterolemia (E78.0) Active confirmed Problem 10666783 Essential (prima ry) hypertension (I10) Active confirmed Problem 240761146 Cataract (366.9) Active confirmed Problem Hyperplastic col on polyp (211.3) Active confirmed Problem 950099862 GERD (gastroesop hageal reflux disease) (K21.9) Active confirmed 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
[2024-09-19 11:25] LABS: Appearance Urine Clear; Glucose Urine UA Negative (Negative); PH 5.5 (5.0-9.0); Specific Gravity - Urine <= 1.005 (1.005-1.025); UMIC TRIGGER UACC YES
[2024-09-19 11:45] LABS: Cholesterol 144 mg/dL (<200); HDL Cholesterol 44 mg/dL (>40); Triglycerides 126 mg/dL (<150)
== END 2024-09-19 07:59 | disposition home or self-care (01) ==
LOC: HO.WFDLDS 07:58
PROVIDERS: Visit Provider Nurse Practitioner Family
DX: Z00.00 Encounter for general adult medical examination without abnormal findings (principal); E78.5 Hyperlipidemia, unspecified
CPT/HCPCS: 36415; 80061; 81001; 82043; 82570

== ENCOUNTER 2024-09-22 09:38 | Outpatient (AMB) | payer MEDICARE, SELFPAY ==
--- NOTE | 2024-09-22 09:40 | MHC.PC.OV ---
Vital Signs 09/22/24 09:45 09/22/24 10:12 Height 5 ft 1 in Weight 142 lb 4 oz BMI 26.9 BP 108/57 L 116/60 Blood Pressure Location Lt brachial Lt brachial Position Sitting Sitting Respiration 16 Pulse 78 Pulse Source Pulse Oximeter Temp 98.3 F Temp Source Oral Pulse Oximetry (%) 97 Oxygen Delivery Method Room Air Intake Visit Reasons: 3 mos HTN, HLD Intake Note: patient here for 3 month follow up on HTN and HLD Pot Operator Required: No Is last menstrual period known: No Post menopausal: No Patient : No Allergies grass pollen Allergy (Severe, Verified 09/22/24 10:03) Itchy Eyes tree and shrub pollen Allergy (Intermediate, Verified 09/22/24 10:03) Itchy Eyes Medication List - Last Reconciled 09/22/24 by Kianna Stein CNP atorvastatin 20 mg PO DAILY 90 days cholecalciferol (vitamin D3) 25 mcg PO DAILY lisinopril 20 mg PO DAILY 90 days Tobacco use date assessed: 09/22/24 Fall risk assessment: No Falls in past year Last assessed Fall Risk: 09/22/24 Dental Screening Dental Screen Date: 09/22/24 Did you have a dental visit in the last 12 months?: No Did you have a dental problem in the last 6 months where you did not have access to dental care?: No Was dental information given to patient?: Patient has dentist HPI HPI Comments History of Present Illness Details 89-year-old female presents for hypertension and hyperlipidemia follow-up. She admits to taking her medications as prescribed without adverse reactions. She notes that she has been making healthy lifestyle changes. She offers no complaints and denies acute symptoms at this time. [facility] Medical History Macular degeneration of both eyes Surgical History H/O removal of cyst Family History Sister Breast cancer Lung cancer Family/Other Breast cancer Family/Other Breast cancer Daughter Bipolar 1 disorder Family/Other Schizophrenia Other Mental health disorder Social History Housing: House Patient Tobacco Use Status: Former Tobacco user Tobacco use type: Cigarette Cigarettes Per Day: 8 e-Cigarette/Vaping Use: Never Used Second Hand Smoke Exposure: No service: No Current occupational status: retired Current occupational exposures/hazards: No Cognitive needs: No Hearing needs: No Vision needs: No Questionnaire Thrive Questionnaire Date Thrive assessed: 06/20/24 I am a: Patient What is your living situation today?: I have a steady place to live Within the past 12 months, did the food you bought not last and you didn't have the money to get more?: Never true Within the past 12 months, did you worry whether your food would run out before you got money to buy more?: Never true Do you have trouble paying for medicines?: No Do you have trouble getting transportation to medical appointments?: No Do you have trouble paying your heating and electricity bill?: No Do you have trouble taking care of your child, family member or friend?: No Do you have trouble with day-to-day activities such as bathing, preparing meals, shopping, managing finances, etc.?: No Are you currently unemployed and looking for a job?: No Are you interested in more education?: No Please select the resources that you would like help with: None Currently or been in a relationship where the following occur: I choose not to answer THRIVE Score: 0 KEVEN-7 AMB Questionnaire KEVEN-7 Date KEVEN - 7 assessed: 06/20/24 Source: Developed by Drs. Chris Nice, Dalia Fermin, Jean Orr and colleagues, with an educational maritza from [employer]. Review of Systems Const Details: Const Denies chills, Denies fatigue, Denies fever(s), Denies headache(s) and Denies weakness ENT Denies dizziness and Denies headache(s) Card Denies chest pain, Denies lightheadedness, Denies dyspnea and Denies other (Palpitations) Resp Denies cough, Denies dyspnea, Denies wheezing and Denies other ( shortness of breath) GI Denies abdominal pain, Denies melena, Denies hematochezia, Denies change in bowel habits, Denies dyspepsia and Denies nausea Denies hematuria and Denies dysuria Musc Denies abnormal gait, Denies myalgias, Denies arthralgias, Denies numbness and Denies tingling Skin/Breast Denies rash, Denies unusual bruising and Denies wounds Neuro Denies abnormal gait, Denies dizziness, Denies headache(s), Denies memory loss, Denies numbness, Denies Sensory deficit (Neuro), Denies tingling and Denies weakness Psych Denies anxiety, Denies depression, Denies memory loss Endo Denies cold intolerance, Denies fatigue, Denies heat intolerance, Denies polydipsia and Denies polyuria Aller/Immun Denies wheezing Physical exam (Primary Care) Vital Signs: Last Vital Signs Temp 98.3 F 09/22/24 09:45 Pulse 78 09/22/24 09:45 Resp 16 09/22/24 09:45 BP 108/57 L 09/22/24 09:45 Pulse Ox 97 09/22/24 09:45 Oxygen Delivery Method Room Air 09/22/24 09:45 BMI result Body Mass Index 26.9 Tobacco/Smoking Status: Tobacco use Status Tobacco use date assessed 09/22/24 09/22/24 09:48 Patient Tobacco Use Status Former Tobacco user 09/22/24 09:41 Tobacco use type Cigarette 09/22/24 09:41 e-Cigarette/Vaping Use Never Used 09/22/24 09:41 Thrive Assessment: Date of Thrive Assessment Date Thrive assessed 06/20/24 09/22/24 09:41 Currently or been in a relationship where the following occur: I choose not to answer Const Other: General: no acute distress and well developed Nutritional Appearance: well nourished Orientation/consciousness: patient oriented x3 HENMT Head: Yes normocephalic and Yes atraumatic Eyes General: appearance normal, both eyes and all related structures Pupils: Equal, round and reactive pupils present EOM: EOMs intact bilaterally Resp Effort & Inspection: normal respiratory effort Auscultation: clear to auscultation bilaterally Cardio Rate: regular rate Rhythm: regular rhythm Heart sounds: S1 normal heart sound present, S2 normal heart sound present, no gallops, no murmurs and no rubs GI Palpation (GI): No Abdominal aortic bruit present, Soft to palpation, nontender, No hepatosplenomegaly present and No Rebound tenderness present Auscultation: normal bowel sounds General: Yes no CVA tenderness Back/Spine/Pelvis Back: no CVA tenderness Cervical Spine: cervical ROM normal and No Cervical spine tenderness Thoracic/Lumbar Spine: thoraco-lumbar ROM normal, No pain with thoraco-lumbar ROM, No thoracic spinal tenderness and No lumbar spinal tenderness Extrem General: Yes normal to inspection, No edema and No calf tenderness Skin General: warm and dry. Normal skin color. Normal skin turgor Neuro General: patient oriented x3, gait normal and no focal neuro deficit Cranial nerves: Yes Equal, round and reactive pupils present Cognition (Neuro): normal cognition Gait exam (Neuro): Normal gait present Sensory Exam: No Sensory deficit (Neuro) Psych Appearance: grossly normal Affect: normal affect Attitude: cooperative Thought process: Normal thought process present Coding Level of Care Code Est Pt Level 3 (62272) Diagnoses Hypertension, unspecified type I10 Hypertension type: unspecified Hyperlipidemia, unspecified hyperlipidemia type E78.5 Hyperlipidemia type: unspecified Assessment & Plan Assessment & Plan (1) Hypertension: Code(s): I10 - Essential (primary) hypertension Category: Medical Qualifiers: Hypertension type: unspecified Qualified Code(s): I10 - Essential (primary) hypertension Plan: Resting blood pressure is 116/60 within goal of less than 140/90. Continue current treatment regimen. Follow-up in 3 months or sooner with symptoms or concerns. Verbalized understanding and agreed with the plan. (2) Hyperlipidemia: Code(s): E78.5 - Hyperlipidemia, unspecified Category: Medical Qualifiers: Hyperlipidemia type: unspecified Qualified Code(s): E78.5 - Hyperlipidemia, unspecified Plan: Recent lipid panel level is normal. Continue current treatment regimen. Advised to limit foods high in saturated fat and avoid foods high in trans fat. Routine exercise encouraged. Will monitor lipid panel level annually or as needed. Verbalized understanding and agreed with the plan.
[2024-09-22 09:45] VITALS: BP 108/57; PULSE 78; RESP 16; TEMP 36.8; O2SAT 97; BMI 26.9
--- OUTSIDE RECORDS SUMMARY | 2024-09-22 09:51 | XMS_ITS | Data Portability ---
Author Organization [place] [facility], [facility] Address [address] [place] [address] Assessment No assessment recorded. Plan of Treatment Reminders Order Date Submit Date Provider Last Modified By Organization Details Last Modified Time Details Appointments None recorded. Lab vitamin D, 25-hydrox y, total, serum 022 [facility], [address], [place], [address], 2 12:50:11 CMP, serum or plasma [facility], [address], [address], [place], [address], 2 12:50:10 CBC w/ auto diff [facility], [address], [address], [place], [address], 2 12:50:12 HbA1c (hemoglob in A1c), blood 022 [facility], [address], [address], [place], [address], 2 12:50:11 microalbu min/creat inine, ratio panel, urine [email or web address], [address], [address], [place], [address], 11:39:16 lipid panel, serum 022 022 [facility], [address], [place], [address], 2 12:50:09 Referral None recorded. Procedures None [...] total 146 mg/dL <200 normal Not Available [facility] [address] [place], [address], 09/19/2021 12:50:09 09/19/19 22 09/19/2021 LIPID PANEL , STAND LEFTY HDL cholesterol 48 mg/dL > or = 50 low Not Available [facility] [place] [facility] [address], [place], [address], 09/19/2021 12:50:09 09/19/19 22 09/19/2021 LIPID PANEL , STAND LEFTY triglyceride s 133 mg/dL <150 normal Not Available [facility] [address] [place], [address], 09/19/2021 12:50:09 09/19/19 22 09/19/2021 LIPID PANEL [...] 2061- 2068 (http ://ed ucati on.Qu Maryam abelGlycos Biotechnologiess. com/f aq/FA Q164) Not Available [facility] [address], [place], [address], 09/19/2021 12:50:09 09/19/19 22 09/19/2021 LIPID PANEL , STAND LEFTY chol/HDLC ratio 3.0 (calc ) <5.0 normal Not Available [facility] [address], [place], [address], 09/19/2021 12:50:09 09/19/19 22 09/19/2021 LIPID PANEL , STAND LEFTY non HDL cholesterol 98 mg/dL _(lisseth c) <130 normal For patie nts with diabe jeffery plus 1 major ASCVD risk facto r, treat ing to a non-H DL-C goal of <100 mg/dL (LDL- C of <70 mg/dL ) is brynn fuentes. Not Available [facility] [address], [place], [address], 09/19/2021 12:50:09 09/19/19 22 09/19/2021 ALBUM IN, RANDO M URINE W/CRE ATINI NE creatinine, random urine 160 mg/dL 20-275 normal Not Available [facility] [place] [facility] [address], [place], [address], 09/19/2021 12:50:10 09/19/19 22 09/19/2021 ALBUM IN, RANDO M URINE W/CRE ATINI NE albumin, urine 1.6 mg/dL see note: normal Refer ence Range : Refer ence Range Not estab lishe d Not Available [facility] [address], [place], [address], 09/19/2021 12:50:10 09/19/19 22 09/19/2021 ALBUM IN, [...] categ ory. Not Available [facility] [place] [facility] [address], [place], [address], 09/19/2021 12:50:10 09/19/19 22 09/19/2021 COMPR EHENS KEYONNA METAB OLIC PANEL glucose 92 mg/dL 65-99 normal Fasti ng refer ence inter gustavo Not Available [facility] [place] [facility] [address], [place], [address], 09/19/2021 12:50:10 09/19/19 22 09/19/2021 COMPR EHENS KEYONNA METAB OLIC PANEL urea nitrogen (BUN) 13 mg/dL 7-25 normal Not Available [facility] [place] [facility] [address], [place], [address], 09/19/2021 12:50:10 09/19/19 22 09/19/2021 COMPR EHENS KEYONNA METAB OLIC PANEL creatinine 0.96 mg/dL 0.60-0 .95 high Not Available [facility] [address], [place], [address], 09/19/2021 12:50:10 09/19/19 22 09/19/2021 COMPR EHENS [...] culat or Not Available [facility] [place] [facility] [address], [place], [address], 09/19/2021 12:50:10 09/19/19 22 09/19/2021 COMPR EHENS KEYONNA METAB OLIC PANEL BUN/creatini ne ratio 14 (calc ) 6-22 normal Not Available [facility] [place] [facility] [address], [place], [address], 09/19/2021 12:50:10 09/19/19 22 09/19/2021 COMPR EHENS KEYONNA METAB OLIC PANEL sodium 141 mmol/ L 135-14 6 normal Not Available [facility] [place] [facility] [address], [place], [address], 09/19/2021 12:50:10 09/19/19 22 09/19/2021 COMPR EHENS KEYONNA METAB OLIC PANEL potassium 4.2 mmol/ L 3.5-5. 3 normal Not Available [facility] [place] [facility] [address], [place], [address], 09/19/2021 12:50:10 09/19/19 22 09/19/2021 COMPR EHENS KEYONNA METAB OLIC PANEL chloride 104 mmol/ L 98-110 normal Not Available [facility] [place] [facility] [address], [place], [address], 09/19/2021 12:50:10 09/19/19 22 09/19/2021 COMPR EHENS KEYONNA METAB OLIC PANEL carbon dioxide 29 mmol/ L 20-32 normal Not Available [facility] [place] [facility] [address], [place], [address], 09/19/2021 12:50:10 09/19/19 22 09/19/2021 COMPR EHENS KEYONNA METAB OLIC PANEL calcium 9.1 mg/dL 8.6-10 .4 normal Not Available [facility] [place] [facility] [address], [place], [address], 09/19/2021 12:50:10 09/19/19 22 09/19/2021 COMPR EHENS KEYONNA METAB OLIC PANEL protein, total 7.1 g/dL 6.1-8. 1 normal Not Available [facility] [address], [place], [address], 09/19/2021 12:50:10 09/19/19 22 09/19/2021 COMPR EHENS KEYONNA METAB OLIC PANEL albumin 4.1 g/dL 3.6-5. 1 normal Not Available [facility] [address], [place], [address], 09/19/2021 12:50:10 09/19/19 22 09/19/2021 COMPR EHENS KEYONNA METAB OLIC PANEL globulin 3.0 g/dL_ (calc ) 1.9-3. 7 normal Not Available [facility] [place] [facility] [address], [place], [address], 09/19/2021 12:50:10 09/19/19 22 09/19/2021 COMPR EHENS KEYONNA METAB OLIC PANEL albumin/glob ulin ratio 1.4 (calc ) 1.0-2. 5 normal Not Available [facility] [address], [place], [address], 09/19/2021 12:50:10 09/19/19 22 09/19/2021 COMPR EHENS KEYONNA METAB OLIC PANEL bilirubin, total 0.4 mg/dL 0.2-1. 2 normal Not Available [facility] [place] [facility] [address], [place], [address], 09/19/2021 12:50:10 09/19/19 22 09/19/2021 COMPR EHENS KEYONNA METAB OLIC PANEL alkaline phosphatase 70 U/L 37-153 normal Not Available [facility] [place] [facility] [address], [place], [address], 09/19/2021 12:50:10 09/19/19 22 09/19/2021 COMPR EHENS KEYONNA METAB OLIC PANEL AST 20 U/L 10-35 normal Not Available [facility] [place] [facility] [address], [place], [address], 09/19/2021 12:50:10 09/19/19 22 09/19/2021 COMPR EHENS KEYONNA METAB OLIC PANEL ALT 13 U/L 6-29 normal Not Available [facility] [place] [facility] [address], [place], [address], 09/19/2021 12:50:10 09/19/19 22 09/19/2021 HEMOG LOBIN [...] 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 Not Available [facility] [place] [facility] [address], [place], [address], 09/19/2021 12:50:10 09/19/19 22 09/19/2021 VITAM IN [...] /MS is recom dillon d: order code [id number] (nusrat ents >2yrs ). See Note 1 Note 1 For addit ional infor shanell nevarez refer to http: //lucas Rushing stDia gnost ics.c om/fa q/FAQ 199 (This link is being provi ded for infor lyudmila gomez/ educrobby estes purpo ses only. ) Not Available [facility] [place] [facility] [address], [place], [address], 09/19/2021 12:50:11 09/19/19 22 09/19/2021 CBC (INCL UDES DIFF/ PLT) white blood cell count 6.8 thous and/u L 3.8-10 .8 normal Not Available [facility] [place] [facility] [address], [place], [address], 09/19/2021 12:50:11 09/19/19 22 09/19/2021 CBC (INCL UDES DIFF/ PLT) red blood cell count 4.14 buffy on/uL 3.80-5 .10 normal Not Available [facility] [address], [place], [address], 09/19/2021 12:50:11 09/19/19 22 09/19/2021 CBC (INCL UDES DIFF/ PLT) hemoglobin 12.8 g/dL 11.7-1 5.5 normal Not Available [facility] [address], [place], [address], 09/19/2021 12:50:11 09/19/19 22 09/19/2021 CBC (INCL UDES DIFF/ PLT) hematocrit 37.8 % 35.0-4 [address] [facility] [address], [place], [address], 09/19/2021 12:50:11 09/19/19 22 09/19/2021 CBC (INCL UDES DIFF/ PLT) MCV 91.3 fL 80.0-1 00.0 normal Not Available [facility] [address], [place], [address], 09/19/2021 12:50:11 09/19/19 22 09/19/2021 CBC (INCL UDES DIFF/ PLT) MCH 30.9 pg 27.0-3 3.0 normal Not Available [facility] [address], [place], [address], 09/19/2021 12:50:11 09/19/19 22 09/19/2021 CBC (INCL UDES DIFF/ PLT) MCHC 33.9 g/dL 32.0-3 6.0 normal Not Available [facility] [address], [place], [address], 09/19/2021 12:50:11 09/19/19 22 09/19/2021 CBC (INCL UDES DIFF/ PLT) RDW 11.9 % 11.0-1 5.0 normal Not Available [facility] [address], [place], [address], 09/19/2021 12:50:11 09/19/19 22 09/19/2021 CBC (INCL UDES DIFF/ PLT) platelet count 222 thous and/u L 140-40 0 normal Not Available [facility] [address], [place], [address], 09/19/2021 12:50:11 09/19/19 22 09/19/2021 CBC (INCL UDES DIFF/ PLT) MPV 10.2 fL 7.5-12 .5 normal Not Available [facility] [address], [place], [address], 09/19/2021 12:50:11 09/19/19 22 09/19/2021 CBC (INCL UDES DIFF/ PLT) absolute neutrophils 4298 cells /uL 1500-7 800 normal Not Available [facility] [address], [place], [address], 09/19/2021 12:50:11 09/19/19 22 09/19/2021 CBC (INCL UDES DIFF/ PLT) absolute lymphocytes 1788 cells /uL 850-39 00 normal Not Available [facility] [address], [place], [address], 09/19/2021 12:50:11 09/19/19 22 09/19/2021 CBC (INCL UDES DIFF/ PLT) absolute monocytes 442 cells /uL 200-95 0 normal Not Available [facility] [address], [place], [address], 09/19/2021 12:50:11 09/19/19 22 09/19/2021 CBC (INCL UDES DIFF/ PLT) absolute eosinophils 211 cells /uL 15-500 normal Not Available [facility] [address], [place], [address], 09/19/2021 12:50:11 09/19/19 22 09/19/2021 CBC (INCL UDES DIFF/ PLT) absolute basophils 61 cells /uL 0-200 normal Not Available [facility] [place] [facility] [address], [place], [address], 09/19/2021 12:50:11 09/19/19 22 09/19/2021 CBC (INCL UDES DIFF/ PLT) neutrophils 63.2 % normal Not Available [facility] [place] [facility] [address], [place], [address], 09/19/2021 12:50:11 09/19/19 22 09/19/2021 CBC (INCL UDES DIFF/ PLT) lymphocytes 26.3 % normal Not Available [facility] [place] [facility] [address], [place], [address], 09/19/2021 12:50:11 09/19/19 22 09/19/2021 CBC (INCL UDES DIFF/ PLT) monocytes 6.5 % normal Not Available [facility] [place] [facility] [address], [place], [address], 09/19/2021 12:50:11 09/19/19 22 09/19/2021 CBC (INCL UDES DIFF/ PLT) eosinophils 3.1 % normal Not Available [facility] [place] [facility] [address], [place], [address], 09/19/2021 12:50:11 09/19/19 22 09/19/2021 CBC (INCL UDES DIFF/ PLT) basophils 0.9 % normal Not Available [facility] [place] [facility] [address], [place], [address], 09/19/2021 12:50:11 Result Notes None recorded. Problems Name Problem SNOMED Code Status Onset Date Resolution Date Notes Provider Name and Address Organization Details Recorded Time Vitamin D deficiency 17386034 Active 022 FELICITY BOWMAN zayra, [place] [facility], [place] 08:07:18 Problem Notes None recorded. [...] SNOMED-CT Code Diagnosis ICD10 Code Diagnosis Note [id number] Ninfa Patel APRN [address] [place] [address] 09/18/2021 07:47:16 09/18/2021 08:17:34 Vitamin D deficiency 38835112 E55.9 Hyperlipidemia 82544500 E78.1 Essential hypertension 56408976 I10 Health Concerns Section Related Observation LastModified by Organization Detai ls LastModified Time None Recorded Concern Status LastModified by Organization Details LastModified Time None Recorded Advance Directives Directive None Recorded Payers Insurance Date Sequence Insurance Name Policy Number Policy Kelly Covered Member ID Kelly Member ID Guarantor Name 06/28/2024 1 [facility] (MEDICARE REPLACEMENT/A DVANTAGE - PPO) [id number] Kaylah Banerjee [id number] Kaylah Banerjee OBGyn Episode No OBEpisode recorded.
--- OUTSIDE RECORDS SUMMARY | 2024-09-22 09:51 | XMS_ITS | Patient Health Record ---
Author Organization [facility] Billing Info Address [address] [place] [address] [place] [address] Support Name Relationship Address Phone Kaylah Banerjee Guarantor Unknown [phone] Allergies Allergen (clinical drug ingredient) Drug/Non Drug [...] Problem Status W/U Status Risk Notes Problem 1863732 Essential hypert ension, benign (I10) Active confirmed Problem 28829585 Pure hypercholesterolemia (E78.0) Active confirmed Problem 04218014 Essential (prima ry) hypertension (I10) Active confirmed Problem 000871154 Cataract (366.9) Active confirmed Problem Hyperplastic col on polyp (211.3) Active confirmed Problem 646618710 GERD (gastroesop hageal reflux disease) (K21.9) Active confirmed 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
[2024-09-22 10:12] VITALS: BP 116/60
== END 2024-09-22 10:17 | disposition home or self-care (01) ==
LOC: HO.HMCFM 09:39
PROVIDERS: PCP Nurse Practitioner Family; Visit Provider Nurse Practitioner Family
DX: I10 Essential (primary) hypertension (principal); E78.5 Hyperlipidemia, unspecified

== ENCOUNTER → 2024-09-22 09:38 | Outpatient (BNVA) | payer MEDICARE, SELFPAY | PROVIDERS: PCP Nurse Practitioner Family; Visit Provider Nurse Practitioner Family | DX: I10 Essential (primary) hypertension (principal); E78.5 Hyperlipidemia, unspecified | CPT/HCPCS: 99212 ==

== ENCOUNTER 2024-12-29 12:03 | Outpatient (AMB) | payer MEDICARE, SELFPAY ==
--- OUTSIDE RECORDS SUMMARY | 2024-06-01 20:00 | XMS_ITS | Continuity of Care Document ---
Author Organization [facility] Address [facility] [place] [address] Phone Care Team Providers Care Archaeologist Name Role Phone Conversion, Integration Unavailable Unavaila ble Allergies, Adverse Reactions, Alerts Substance Reaction Status Criticality simvastatin Active No Information Advance Directives Directive Yes / No Effective Date File Name No Information Encounters Encounter Description Practice Location Reason(s) For Visit Diagnoses Date Provider Providers Copied on Encounter [facility] , [address] [place] [address], [id number], tel:[phone] [place] [address] [place] No Information Apr-0 4-202 5 Conversion Integration . This Is For Integration s, To Convert Old Doctors, Without Adding More Bad Data. [facility] , [address] [place] [address], [id number], tel:[phone] [place] [phone] [employer] [facility] No Information Arnold-0 1-190 0 Conversion Integration . This Is For Integration s, To Convert Old Doctors, Without Adding More Bad Data. Family History Family Member Type Diagnosis Age At Onset No Information Payers Payer name Insurance type Covered green party ID Authoriza titong(s) No Information Social History Type Description Quantity Date Captured Comments Sex Female Smoking Status No Information Chief Complaint And Reason For Visit No Information Reason For Referral Reason For Referral No Information History Of Present Illness Encounter Date Complaint History Of Prese nt Illness No Information Functional Status Date Functional Assessmen t No Information Instructions Date Instruction Additional Infor mation No Information Assessments Type Assessment Date No Information Patient Care Teams Name Effective Dates (start - stop) Status Members No Information
--- NOTE | 2024-12-25 09:59 | A.OFFPC_ITS ---
Intake Visit Reasons: 3 mos HTN Allergies grass pollen Allergy (Severe, Verified 09/22/24 10:03) Itchy Eyes tree and shrub pollen Allergy (Intermediate, Verified 09/22/24 10:03) Itchy Eyes Tobacco use date assessed: 09/22/24 Dental Screening Dental Screen Date: 09/22/24 [facility] Medical History Macular degeneration of both eyes Surgical History H/O removal of cyst Family History Sister Breast cancer Lung cancer Family/Other Breast cancer Family/Other Breast cancer Daughter Bipolar 1 disorder Family/Other Schizophrenia Other Mental health disorder Social History Housing: House Patient Tobacco Use Status: Former Tobacco user Tobacco use type: Cigarette Cigarettes Per Day: 8 e-Cigarette/Vaping Use: Never Used Second Hand Smoke Exposure: No service: No Current occupational status: retired Current occupational exposures/hazards: No Cognitive needs: No Hearing needs: No Vision needs: No Questionnaire Thrive Questionnaire Date Thrive assessed: 06/20/24 I am a: Patient What is your living situation today?: I have a steady place to live Within the past 12 months, did the food you bought not last and you didn't have the money to get more?: Never true Within the past 12 months, did you worry whether your food would run out before you got money to buy more?: Never true Do you have trouble paying for medicines?: No Do you have trouble getting transportation to medical appointments?: No Do you have trouble paying your heating and electricity bill?: No Do you have trouble taking care of your child, family member or friend?: No Do you have trouble with day-to-day activities such as bathing, preparing meals, shopping, managing finances, etc.?: No Are you currently unemployed and looking for a job?: No Are you interested in more education?: No Please select the resources that you would like help with: None Currently or been in a relationship where the following occur: I choose not to answer THRIVE Score: 0 AUDIT C Alcohol Use Questionnaire (AUDIT-C) 3. How often do you have six or more drinks on one occasion?: Never Total Score: 0 KEVEN-7 AMB Questionnaire KEVEN-7 Date KEVEN - 7 assessed: 06/20/24 Source: Developed by Drs. Chris Nice, Dalia Fermin, Jean Orr and colleagues, with an educational maritza from [employer]. Physical exam (Primary Care) Tobacco/Smoking Status: Tobacco use Status Tobacco use date assessed 09/22/24 09/22/24 09:48 Patient Tobacco Use Status Former Tobacco user 09/22/24 09:41 Tobacco use type Cigarette 09/22/24 09:41 e-Cigarette/Vaping Use Never Used 09/22/24 09:41 Thrive Assessment: Date of Thrive Assessment Date Thrive assessed 06/20/24 09/22/24 09:41 Currently or been in a relationship where the following occur: I choose not to answer Coding
--- OUTSIDE RECORDS SUMMARY | 2024-12-25 13:35 | XMS_ITS | Patient Health Record ---
Author Organization [facility] Cheryl mayberry Billing Info Address [address] [place] [address] [place] [address] Support Name Relationship Address Phone Kaylah Banerjee Guarantor Unknown [phone] Allergies Allergen (clinical drug ingredient) Drug/Non Drug [...] Problem Status W/U Status Risk Notes Problem 5259082 Essential hypert ension, benign (I10) Active confirmed Problem 27533948 Pure hypercholesterolemia (E78.0) Active confirmed Problem 60175811 Essential (prima ry) hypertension (I10) Active confirmed Problem 474447645 Cataract (366.9) Active confirmed Problem 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
--- NOTE | 2024-12-29 12:07 | A.OFFPC_ITS ---
Vital Signs 12/29/24 12:13 12/29/24 12:50 Height 5 ft 1 in Weight 145 lb BMI 27.4 BP 140/65 H 124/60 Blood Pressure Location Lt brachial Lt brachial Position Sitting Sitting Respiration 16 Pulse 80 Pulse Source Pulse Oximeter Temp 97.9 F Temp Source Temporal Artery Scan Pulse Oximetry (%) 99 Oxygen Delivery Method Room Air Intake Visit Reasons: 3 mos HTN Intake Note: patient here for 3 month follow up on HTN, c/o chest congestion and phlem. Training Development Director Required: No Is last menstrual period known: No Post menopausal: No Patient : No Allergies grass pollen Allergy (Severe, Verified 12/29/24 12:46) Itchy Eyes tree and shrub pollen Allergy (Intermediate, Verified 12/29/24 12:46) Itchy Eyes Medication List - Last Reconciled 12/29/24 by Kianan Stein CNP atorvastatin 20 mg PO DAILY 90 days cholecalciferol (vitamin D3) 25 mcg PO DAILY lisinopril 20 mg PO DAILY 90 days Tobacco use date assessed: 12/29/24 Fall risk assessment: No Falls in past year Last assessed Fall Risk: 12/29/24 Dental Screening Dental Screen Date: 12/29/24 Did you have a dental visit in the last 12 months?: Yes Did you have a dental problem in the last 6 months where you did not have access to dental care?: No Was dental information given to patient?: Patient has dentist HPI HPI Comments History of Present Illness Details 89-year-old female presents for hyperten aviva follow-up. She admits to taking her medications as prescribed without adverse reactions. She notes that she has been making healthy lifestyle choices. She notes that she developed sneezing, cough with yellow productive cough, and severe sore throat a day after receiving the flu and shingle vaccines. She got both vaccines in 11/22/2024. The sore throat completely subsided after 2 days. Sneezing has significantly improved - last time she sneezed was yesterday. The cough has improved but she continues to experience intermittent productive cough with yellow phlegm. No known sick contact. She denies difficulty breathing or chest pain. No nasal or chest congestion. She denies fever, chills, body aches, fatigue, or wearkness. [facility] Medical History Macular degeneration of both eyes Surgical History H/O removal of cyst Family History Sister Breast cancer Lung cancer Family/Other Breast cancer Family/Other Breast cancer Daughter Bipolar 1 disorder Family/Other Schizophrenia Other Mental health disorder Social History Housing: House Patient Tobacco Use Status: Former Tobacco user Tobacco use type: Cigarette Cigarettes Per Day: 8 e-Cigarette/Vaping Use: Never Used Second Hand Smoke Exposure: No service: No Current occupational status: retired Current occupational exposures/hazards: No Cognitive needs: No Hearing needs: No Vision needs: No Questionnaire Thrive Questionnaire Date Thrive assessed: 06/20/24 I am a: Patient What is your living situation today?: I have a steady place to live Within the past 12 months, did the food you bought not last and you didn't have the money to get more?: Never true Within the past 12 months, did you worry whether your food would run out before you got money to buy more?: Never true Do you have trouble paying for medicines?: No Do you have trouble getting transportation to medical appointments?: No Do you have trouble paying your heating and electricity bill?: No Do you have trouble taking care of your child, family member or friend?: No Do you have trouble with day-to-day activities such as bathing, preparing meals, shopping, managing finances, etc.?: No Are you currently unemployed and looking for a job?: No Are you interested in more education?: No Please select the resources that you would like help with: None Currently or been in a relationship where the following occur: I choose not to answer THRIVE Score: 0 AUDIT C Alcohol Use Questionnaire (AUDIT-C) 3. How often do you have six or more drinks on one occasion?: Never Total Score: 0 KEVEN-7 AMB Questionnaire KEVEN-7 Date KEVEN - 7 assessed: 06/20/24 Source: Developed by Drs. Chris Nice, Dalia Fermin, Jean Orr and colleagues, with an educational maritza from [employer]. Review of Systems Const Details: Const Denies chills, Denies fatigue, Denies fever(s), Denies headache(s) and Denies weakness ENT Denies dizziness and Denies headache(s) Card Denies chest pain, Denies lightheadedness, Denies dyspnea and Denies other (Palpitations) Resp Denies cough, Denies dyspnea, Denies wheezing and Denies other ( shortness of breath) GI Denies abdominal pain, Denies melena, Denies hematochezia, Denies change in bowel habits, Denies dyspepsia and Denies nausea Denies hematuria and Denies dysuria Musc Denies abnormal gait, Denies myalgias, Denies arthralgias, Denies numbness and Denies tingling Skin/Breast Denies rash, Denies unusual bruising and Denies wounds Neuro Denies abnormal gait, Denies dizziness, Denies headache(s), Denies memory loss, Denies numbness, Denies Sensory deficit (Neuro), Denies tingling and Denies weakness Psych Denies anxiety, Denies depression, Denies memory loss Endo Denies cold intolerance, Denies fatigue, Denies heat intolerance, Denies polydipsia and Denies polyuria Aller/Immun Denies wheezing Physical exam (Primary Care) Vital Signs: Last Vital Signs Temp 97.9 F 12/29/24 12:13 Pulse 80 12/29/24 12:13 Resp 16 12/29/24 12:13 BP 140/65 H 12/29/24 12:13 Pulse Ox 99 12/29/24 12:13 Oxygen Delivery Method Room Air 12/29/24 12:13 BMI result Body Mass Index 0.3 Tobacco/Smoking Status: Tobacco use Status Tobacco use date assessed 12/29/24 12/29/24 12:17 Patient Tobacco Use Status Former Tobacco user 12/29/24 12:09 Tobacco use type Cigarette 12/29/24 12:09 e-Cigarette/Vaping Use Never Used 12/29/24 12:09 Thrive Assessment: Date of Thrive Assessment Date Thrive assessed 06/20/24 12/29/24 12:09 Currently or been in a relationship where the following occur: I choose not to answer Const Other: General: no acute distress and well developed Nutritional Appearance: well nourished Orientation/consciousness: patient oriented x3 HENMT Head is normocephalic Bilateral ear canal and TM are normal Nasal turbinates and oropharynx are pink and moist Sinuses are nontender with palpation No auricular or cervical lymphadenopathy Eyes General: appearance normal, both eyes and all related structures Pupils: Equal, round and reactive pupils present EOM: EOMs intact bilaterally Resp Effort & Inspection: normal respiratory effort Auscultation: Clear to upper lobes bilaterally and crackles to bilateral lower lobes Cardio Rate: regular rate Rhythm: regular rhythm Heart sounds: S1 normal heart sound present, S2 normal heart sound present, no gallops, no murmurs and no rubs GI Palpation (GI): No Abdominal aortic bruit present, Soft to palpation, nontender, No hepatosplenomegaly present and No Rebound tenderness present Auscultation: normal bowel sounds General: Yes no CVA tenderness Back/Spine/Pelvis Back: no CVA tenderness Cervical Spine: cervical ROM normal and No Cervical spine tenderness Thoracic/Lumbar Spine: thoraco-lumbar ROM normal, No pain with thoraco-lumbar ROM, No thoracic spinal tenderness and No lumbar spinal tenderness Extrem General: Yes normal to inspection, No edema and No calf tenderness Skin General: warm and dry. Normal skin color. Normal skin turgor Neuro General: patient oriented x3, gait normal and no focal neuro deficit Cranial nerves: Yes Equal, round and reactive pupils present Cognition (Neuro): normal cognition Gait exam (Neuro): Normal gait present Sensory Exam: No Sensory deficit (Neuro) Psych Appearance: grossly normal Affect: normal affect Attitude: cooperative Thought process: Normal thought process present Coding Level of Care Code Est Pt Level 4 (61965) Diagnoses Hypertension, unspecified type I10 Hypertension type: unspecified Upper respiratory symptom R09.89 Assessment & Plan Assessment & Plan (1) Hypertension: Code(s): I10 - Essential (primary) hypertension Category: Medical Qualifiers: Hypertension type: unspecified Qualified Code(s): I10 - Essential (primary) hypertension Plan: Resting blood pressure is 124/60, within goal of less than 140/90. Continue current treatment regimen. Low-sodium diet encouraged. Follow-up in 3 months for RUIZ within a provider and hypertension. Return sooner with symptoms or concerns. Verbalized understanding and agreed with the plan. (2) Upper respiratory symptom: Code(s): R09.89 - Other specified symptoms and signs involving the circulatory and respiratory systems Category: Medical Plan: Lungs sound clear to upper lobes bilaterally and crackles to bilateral lower lobes. Likely allergies. No evidence of bacterial or viral infection. Zyrtec as prescribed. Adequate hydration encouraged. Chest x-ray ordered; encouraged to get done as soon as possible. Nasal swab collected and will be sent to test for COVID/flu/RSV. Adequate hydration encouraged. Follow-up with worsening or new symptoms. Verbalized understanding and agreed with the plan. Orders: Orders XR chest 2V Today R09.89 - Other specified symptoms and signs involving the circulatory and respiratory systems SARS-CoV2/FLU/RSV Today R09.89 - Other specified symptoms and signs involving the circulatory and respiratory systems Medications: New cetirizine 10 mg PO DAILY 30 tabs 0RF 30 days
[2024-12-29 12:13] VITALS: BP 140/65; PULSE 80; RESP 16; TEMP 36.6; O2SAT 99; BMI 27.4
[2024-12-29 12:50] VITALS: BP 124/60
--- OUTSIDE RECORDS SUMMARY | 2024-12-29 13:34 | XMS_ITS | Data Portability ---
Author Organization [place] [facility] Address [address] [place] [address] Care Team Providers Care Dependency Counselor Name Role Phone OLENA MORENO Referring Provider OLENA MORENO Primary Care Provider [phone] Assessment No assessment recorded. Plan of Treatment [...] Time Transc ribed: 2019 17:04 By: LUCIA Verifi ed Date: 2019 17:06 [email or web address] [facility] [address] [place], [address], 08/28/2019 11:41:56 Result Notes Documentation Provider Name and Address Organization Details Recorded Time Ct, Chest, W/o Contrast : CT Chest w/o Contrast INDICATION: Abnormal chest x-ray. TECHNIQUE: Imaging of the chest was performed. Multiplanar reconstructions were obtained. CONTRAST: No intravenous contrast was administered. CTDI Vol: 16.71 mGy. A dose reduction technique was utilized. All CT scans at this facility use dose modulation, iterative reconstruction and/or weight based dosing when appropriate to reduce radiation dose to as low as reasonably achievable. COMPARISON: No pertinent examinations are available for comparison. FINDINGS: Bilateral subpleural reticulation and interstitial thickening with somewhat of a lower lobe predominance. Minimal bibasilar fibrosis. Scattered mild bronchiectasis in both lungs. No suspicious opacity or nodule. No pleural effusion or pneumothorax. Normal caliber main pulmonary artery. Normal heart size. No significant pericardial fluid. Normal caliber thoracic aorta. Scattered, prominent lymph nodes throughout the mediastinum are nonspecific but likely reactive. Visualized esophagus is grossly normal. No hiatal hernia. Visualized upper abdominal structures are within normal limits. No aggressive osseous lesions. IMPRESSION: 1. Bilateral subpleural reticulation and interstitial thickening with a lower lobe predominance. Minimal bibasilar fibrosis with scattered areas of mild bronchiectasis. Findings are suggestive of interstitial lung disease, UIP pattern. 2. Recommend continued CT surveillance. WSN: NAZARIO-JESS READING RADIOLOGIST: MD Nazario, [place] Date / Time Transcribed: 08/21/2019 17:04 By: LUCIA Verified Date: 08/21/2019 17:06 Carmen Canas MD [address] [facility],[address], [place], [address] [place] 08/28/2019 11:41:56 Medical Equipment None Reported. Allergies No known [...] in Arterial blood by Pulse oximetry Systolic And Diastolic Provider Name and Address Organization Details Last Updated DateTime 0 157.48 cm 27.4 kg/m2 19170.8 6 g 89 /min 95 % 95 % 110/70 mm[Hg] Gabriela Leger [facility] 0 15:14:58 Social History Question Answer Notes LastModified by Organizat ion Details LastModified Time Tobacco Smoking Status Never [facility]2019 15:16:20 Are You Blind Or Do [...] Smoked Tobacco? 5 Information not available 08/21/2019 Do You Have Difficulty Walking Or Climbing Stairs? No Information not available 08/21/2019 Sex: Unknown Functional Status Question Answer Note LastModified by Organization D etails LastModified Time Do you have difficulty doing errands alone? No Information not available 08/21/2019 Do you have difficulty dressing, bathing, grooming, or toileting? No Information not available 08/21/2019 Mental Status [...] Influenza, split virus, quadrivalent, preservative 9 completed [facility] 08/21/2019 15:15:58 Past Encounters Encounter ID Performer Location Encounter Start Date Encounter Closed Date Diagnosis/Indication Diagnosis SNOMED-CT Code Diagnosis ICD10 Code Diagnosis IMO Codes Diagnosis Note [id number] Carmen Canas MD [email or web address] [id number] [address] [address] 08/21/2019 14:47:09 08/21/2019 15:34:23 Solitary nodule of lung [id number] R91.1 Patient had a 1.6 cm opacity probably was atelectasi s or scar tissue. I doubt this was cancer.How ever we need a chest CT scan as soon as possible. 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 [...] Member ID Kelly Member ID Guarantor Name 08/14/2023 1 [facility] (MEDICARE REPLACEMENT/A DVANTAGE - HMO) [id number] Kaylah Banerjee [id number] Kaylah Banerjee Notes Date Note Type Note Provider Name and Address Organization Details Recorded Time 08/21/2019 text/html Patient is a very pleasant 84-year-old woman who came for evaluation [...] heart disease and stroke. Carmen Canas MD [address] [facility],[address], [place], [address], [facility] [place] [facility] [place] 08/21/2019 19:50:29 OBGyn Episode No OBEpisode recorded.
--- OUTSIDE RECORDS SUMMARY | 2024-12-29 13:34 | XMS_ITS | Data Portability ---
Author Organization [place] [facility], [facility] [place] Address [address] [place] [address] Assessment No assessment recorded. Plan of Treatment Reminders Order Date Submit Date Provider Last Modified By Organization Details Last Modified Time Details Appointments None recorded. Lab vitamin D, 25-hydrox y, total, serum 022 [facility], [address], [place], [address], 2 12:50:11 CMP, serum or plasma 022 [facility], [address], [place], [address], 2 12:50:10 CBC w/ auto diff [facility], [address], [place], [address], 2 12:50:12 HbA1c (hemoglob in A1c), blood 022 [facility], [address], [place], [address], 2 12:50:11 microalbu min/creat inine, ratio panel, urine 022 [id number] [facility], [address], [address], [place], [address], 11:39:16 lipid panel, serum 022 022 ASHLEY [facility], [address], [place], [address], 2 12:50:09 Referral None recorded. Procedures None [...] total 146 mg/dL <200 normal Not Available [facility] [address] [place], [address], 09/19/2021 12:50:09 09/19/19 22 09/19/2021 LIPID PANEL , STAND LEFTY HDL cholesterol 48 mg/dL > or = 50 low Not Available [facility] [place] [facility] [address], [place], [address], 09/19/2021 12:50:09 09/19/19 22 09/19/2021 LIPID PANEL , STAND LEFTY triglyceride s 133 mg/dL <150 normal Not Available [facility] [address] [place], [address], 09/19/2021 12:50:09 09/19/19 22 09/19/2021 LIPID PANEL [...] 2061- 2068 (http ://ed ucati on.Qu Maryam abelBottles. com/f aq/FA Q164) Not Available [facility] [address], [place], [address], 09/19/2021 12:50:09 09/19/19 22 09/19/2021 LIPID PANEL , STAND LEFTY chol/HDLC ratio 3.0 (calc ) <5.0 normal Not Available [facility] [address], [place], [address], 09/19/2021 12:50:09 09/19/19 22 09/19/2021 LIPID PANEL , STAND LEFTY non HDL cholesterol 98 mg/dL _(lisseth c) <130 normal For patie nts with diabe jeffery plus 1 major ASCVD risk facto r, treat ing to a non-H DL-C goal of <100 mg/dL (LDL- C of <70 mg/dL ) is brynn fuentes. Not Available [facility] [address], [place], [address], 09/19/2021 12:50:09 09/19/19 22 09/19/2021 ALBUM IN, RANDO M URINE W/CRE ATINI NE creatinine, random urine 160 mg/dL 20-275 normal Not Available [facility] [place] [facility] [address], [place], [address], 09/19/2021 12:50:10 09/19/19 22 09/19/2021 ALBUM IN, RANDO M URINE W/CRE ATINI NE albumin, urine 1.6 mg/dL see note: normal Refer ence Range : Refer ence Range Not estab lishe d Not Available [facility] [address], [place], [address], 09/19/2021 12:50:10 09/19/19 22 09/19/2021 ALBUM IN, [...] categ ory. Not Available [facility] [place] [facility] [address], [place], [address], 09/19/2021 12:50:10 09/19/19 22 09/19/2021 COMPR EHENS KEYONNA METAB OLIC PANEL glucose 92 mg/dL 65-99 normal Fasti ng refer ence inter gustavo Not Available [facility] [place] [facility] [address], [place], [address], 09/19/2021 12:50:10 09/19/19 22 09/19/2021 COMPR EHENS KEYONNA METAB OLIC PANEL urea nitrogen (BUN) 13 mg/dL 7-25 normal Not Available [facility] [place] [facility] [address], [place], [address], 09/19/2021 12:50:10 09/19/19 22 09/19/2021 COMPR EHENS KEYONNA METAB OLIC PANEL creatinine 0.96 mg/dL 0.60-0 .95 high Not Available [facility] [address], [place], [address], 09/19/2021 12:50:10 09/19/19 22 09/19/2021 COMPR EHENS [...] culat or Not Available [facility] [place] [facility] [address], [place], [address], 09/19/2021 12:50:10 09/19/19 22 09/19/2021 COMPR EHENS KEYONNA METAB OLIC PANEL BUN/creatini ne ratio 14 (calc ) 6-22 normal Not Available [facility] [place] [facility] [address], [place], [address], 09/19/2021 12:50:10 09/19/19 22 09/19/2021 COMPR EHENS KEYONNA METAB OLIC PANEL sodium 141 mmol/ L 135-14 6 normal Not Available [facility] [place] [facility] [address], [place], [address], 09/19/2021 12:50:10 09/19/19 22 09/19/2021 COMPR EHENS KEYONNA METAB OLIC PANEL potassium 4.2 mmol/ L 3.5-5. 3 normal Not Available [facility] [place] [facility] [address], [place], [address], 09/19/2021 12:50:10 09/19/19 22 09/19/2021 COMPR EHENS KEYONNA METAB OLIC PANEL chloride 104 mmol/ L 98-110 normal Not Available [facility] [place] [facility] [address], [place], [address], 09/19/2021 12:50:10 09/19/19 22 09/19/2021 COMPR EHENS KEYONNA METAB OLIC PANEL carbon dioxide 29 mmol/ L 20-32 normal Not Available [facility] [place] [facility] [address], [place], [address], 09/19/2021 12:50:10 09/19/19 22 09/19/2021 COMPR EHENS KEYONNA METAB OLIC PANEL calcium 9.1 mg/dL 8.6-10 .4 normal Not Available [facility] [place] [facility] [address], [place], [address], 09/19/2021 12:50:10 09/19/19 22 09/19/2021 COMPR EHENS KEYONNA METAB OLIC PANEL protein, total 7.1 g/dL 6.1-8. 1 normal Not Available [facility] [address], [place], [address], 09/19/2021 12:50:10 09/19/19 22 09/19/2021 COMPR EHENS KEYONNA METAB OLIC PANEL albumin 4.1 g/dL 3.6-5. 1 normal Not Available [facility] [address], [place], [address], 09/19/2021 12:50:10 09/19/19 22 09/19/2021 COMPR EHENS KEYONNA METAB OLIC PANEL globulin 3.0 g/dL_ (calc ) 1.9-3. 7 normal Not Available [facility] [place] [facility] [address], [place], [address], 09/19/2021 12:50:10 09/19/19 22 09/19/2021 COMPR EHENS KEYONNA METAB OLIC PANEL albumin/glob ulin ratio 1.4 (calc ) 1.0-2. 5 normal Not Available [facility] [address], [place], [address], 09/19/2021 12:50:10 09/19/19 22 09/19/2021 COMPR EHENS KEYONNA METAB OLIC PANEL bilirubin, total 0.4 mg/dL 0.2-1. 2 normal Not Available [facility] [place] [facility] [address], [place], [address], 09/19/2021 12:50:10 09/19/19 22 09/19/2021 COMPR EHENS KEYONNA METAB OLIC PANEL alkaline phosphatase 70 U/L 37-153 normal Not Available [facility] [place] [facility] [address], [place], [address], 09/19/2021 12:50:10 09/19/19 22 09/19/2021 COMPR EHENS KEYONNA METAB OLIC PANEL AST 20 U/L 10-35 normal Not Available [facility] [place] [facility] [address], [place], [address], 09/19/2021 12:50:10 09/19/19 22 09/19/2021 COMPR EHENS KEYONNA METAB OLIC PANEL ALT 13 U/L 6-29 normal Not Available [facility] [place] [facility] [address], [place], [address], 09/19/2021 12:50:10 09/19/19 22 09/19/2021 HEMOG LOBIN [...] 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 Not Available [facility] [place] [facility] [address], [place], [address], 09/19/2021 12:50:10 09/19/19 22 09/19/2021 VITAM IN [...] /MS is recom dillon d: order code 40709 (nusrat ents >2yrs ). See Note 1 Note 1 For addit ional infor shanell nevarez refer to http: //lucas Rushing stDia gnost ics.c om/fa q/FAQ 199 (This link is being provi ded for infor lyudmila gomez/ educrobby estes purpo ses only. ) Not Available [facility] [place] [facility] [address], [place], [address], 09/19/2021 12:50:11 09/19/19 22 09/19/2021 CBC (INCL UDES DIFF/ PLT) white blood cell count 6.8 thous and/u L 3.8-10 .8 normal Not Available [facility] [place] [facility] [address], [place], [address], 09/19/2021 12:50:11 09/19/19 22 09/19/2021 CBC (INCL UDES DIFF/ PLT) red blood cell count 4.14 buffy on/uL 3.80-5 .10 normal Not Available [facility] [address], [place], [address], 09/19/2021 12:50:11 09/19/19 22 09/19/2021 CBC (INCL UDES DIFF/ PLT) hemoglobin 12.8 g/dL 11.7-1 5.5 normal Not Available [facility] [address], [place], [address], 09/19/2021 12:50:11 09/19/19 22 09/19/2021 CBC (INCL UDES DIFF/ PLT) hematocrit 37.8 % 35.0-4 5.0 normal Not Available [facility] [address], [place], [address], 09/19/2021 12:50:11 09/19/19 22 09/19/2021 CBC (INCL UDES DIFF/ PLT) MCV 91.3 fL 80.0-1 00.0 normal Not Available [facility] [address], [place], [address], 09/19/2021 12:50:11 09/19/19 22 09/19/2021 CBC (INCL UDES DIFF/ PLT) MCH 30.9 pg 27.0-3 3.0 normal Not Available [facility] [address], [place], [address], 09/19/2021 12:50:11 09/19/19 22 09/19/2021 CBC (INCL UDES DIFF/ PLT) MCHC 33.9 g/dL 32.0-3 6.0 normal Not Available [facility] [address], [place], [address], 09/19/2021 12:50:11 09/19/19 22 09/19/2021 CBC (INCL UDES DIFF/ PLT) RDW 11.9 % 11.0-1 5.0 normal Not Available [facility] [address], [place], [address], 09/19/2021 12:50:11 09/19/19 22 09/19/2021 CBC (INCL UDES DIFF/ PLT) platelet count 222 thous and/u L 140-40 0 normal Not Available [facility] [address], [place], [address], 09/19/2021 12:50:11 09/19/19 22 09/19/2021 CBC (INCL UDES DIFF/ PLT) MPV 10.2 fL 7.5-12 .5 normal Not Available [facility] [address], [place], [address], 09/19/2021 12:50:11 09/19/19 22 09/19/2021 CBC (INCL UDES DIFF/ PLT) absolute neutrophils 4298 cells /uL 1500-7 800 normal Not Available [facility] [address], [place], [address], 09/19/2021 12:50:11 09/19/19 22 09/19/2021 CBC (INCL UDES DIFF/ PLT) absolute lymphocytes 1788 cells /uL 850-39 00 normal Not Available [facility] [address], [place], [address], 09/19/2021 12:50:11 09/19/19 22 09/19/2021 CBC (INCL UDES DIFF/ PLT) absolute monocytes 442 cells /uL 200-95 0 normal Not Available [facility] [address], [place], [address], 09/19/2021 12:50:11 09/19/19 22 09/19/2021 CBC (INCL UDES DIFF/ PLT) absolute eosinophils 211 cells /uL 15-500 normal Not Available [facility] [address], [place], [address], 09/19/2021 12:50:11 09/19/19 22 09/19/2021 CBC (INCL UDES DIFF/ PLT) absolute basophils 61 cells /uL 0-200 normal Not Available [facility] [place] [facility] [address], [place], [address], 09/19/2021 12:50:11 09/19/19 22 09/19/2021 CBC (INCL UDES DIFF/ PLT) neutrophils 63.2 % normal Not Available [facility] [place] [facility] [address], [place], [address], 09/19/2021 12:50:11 09/19/19 22 09/19/2021 CBC (INCL UDES DIFF/ PLT) lymphocytes 26.3 % normal Not Available [facility] [place] [facility] [address], [place], [address], 09/19/2021 12:50:11 09/19/19 22 09/19/2021 CBC (INCL UDES DIFF/ PLT) monocytes 6.5 % normal Not Available [facility] [place] [facility] [address], [place], [address], 09/19/2021 12:50:11 09/19/19 22 09/19/2021 CBC (INCL UDES DIFF/ PLT) eosinophils 3.1 % normal Not Available [facility] [place] [facility] [address], [place], [address], 09/19/2021 12:50:11 09/19/19 22 09/19/2021 CBC (INCL UDES DIFF/ PLT) basophils 0.9 % normal Not Available [facility] [place] [facility] [address], [place], [address], 09/19/2021 12:50:11 Result Notes None recorded. Problems Name Problem SNOMED Code Status Onset Date Resolution Date Notes Provider Name and Address Organization Details Recorded Time Vitamin D deficiency 42468800 Active 022 FELICITY VARGASRA iverson, [place] - [facility], [place] 08:07:18 Problem Notes None recorded. Medical Equipment [...] ICD10 Code Diagnosis IMO Codes Diagnosis Note [id number] Ninfa Patel APRN [address] [place] [address] 09/18/2021 07:47:16 09/18/2021 08:17:34 Vitamin D deficiency 07587396 E55.9 Hyperlipidemia 61765475 E78.1 Essential hypertension 73043139 I10 Health Concerns Section Related Observation LastModified by Organization Detai ls LastModified Time None Recorded Concern Status LastModified by Organization Details LastModified Time None Recorded Advance Directives Directive None Recorded Payers Insurance Date Sequence Insurance Name Policy Number Policy Kelly Covered Member ID Kelly Member ID Guarantor Name 06/28/2024 1 [facility] (MEDICARE REPLACEMENT/A DVANTAGE - PPO) [id number] Kaylah Banerjee [id number] Kaylah Banerjee OBGyn Episode No OBEpisode recorded.
--- OUTSIDE RECORDS SUMMARY | 2024-12-29 13:35 | XMS_ITS | Patient Health Record ---
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
== END 2024-12-29 13:03 | disposition home or self-care (01) ==
PROVIDERS: PCP Nurse Practitioner Family; Visit Provider Nurse Practitioner Family
DX: I10 Essential (primary) hypertension (principal); R09.89 Other specified symptoms and signs involving the circulatory and respiratory systems

== ENCOUNTER 2024-12-29 12:30 | Outpatient (REF) | payer MEDICARE, SELFPAY ==
--- NOTE | ~2024-12-29 | XR_ITS ---
EXAMINATION: XR CHEST CLINICAL INFORMATION: R09.89 - Other specified symptoms and signs involving the circulatory an... COMPARISON: None available. TECHNIQUE: PA and lateral views. FINDINGS: Pulmonary reticular nodular pattern. No hyperinflation. No consolidation, pleural effusion or pneumothorax. Heart and mediastinal silhouette size is normal. Multilevel thoracolumbar spondylosis. S-shaped curvature of the thoracolumbar spine. Osteopenia versus osteoporosis. Patient's large body habitus. XR/XR chest 2V IMPRESSION: Chronic interstitial lung disease without acute airspace disease. Pulmonary fibrosis should be considered. Electronically signed by: Deepak Melissa MD 12/29/2024 03:09 PM EDT
[2024-12-29 19:15] LABS: Resp Syncy Virus RNA Qual PCR NEGATIVE (Negative); SARS COV2 PCR INHOUSE NEGATIVE (Negative)
== END 2024-12-29 12:31 | disposition home or self-care (01) ==
LOC: HO.LAB 12:30
PROVIDERS: PCP Nurse Practitioner Family; Visit Provider Nurse Practitioner Family
DX: I10 Essential (primary) hypertension (principal); R09.89 Other specified symptoms and signs involving the circulatory and respiratory systems; R06.7 Sneezing; R05.9 Cough, unspecified; J02.9 Acute pharyngitis, unspecified; Z87.891 Personal history of nicotine dependence; Z11.52 Encounter for screening for COVID-19
CPT/HCPCS: 71046; 87637; 99212

== ENCOUNTER → 2024-12-29 14:48 | Outpatient (BNV) | payer MEDICARE, SELFPAY | PROVIDERS: PCP Nurse Practitioner Family; Visit Provider Radiology Diagnostic Radiology | DX: R09.89 Other specified symptoms and signs involving the circulatory and respiratory systems (principal) | CPT/HCPCS: 71046 ==